=== PATIENT | female | born 1965 | race Caucasian/White ===

== ENCOUNTER 2019-06-20 13:16 | Inpatient (IN) | payer BC ==
--- NOTE | 2019-06-20 14:13 | ED ---
Lower Extremity - HPI Summary HPI Summary: This patient is a 53 year old F presenting to [facility] accompanied by with a chief complaint of ulcer on the 3rd toe of the right foot since more than 1 month ago. Symptoms aggravated by nothing. Symptoms alleviated by nothing. Patient reports she has neuropathy in both legs that start in her feet, go up her legs (felt more in one leg than the other), and partially up her back and she has hammer toes in both feet. Patient reports her 2nd toe got infected after a blister opened up and now her 3rd toe on the same foot has the ulcer that started as a scab a month ago. 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 Patient reports her left ankle hurts more than her right ankle. Patient has never gotten a scan of her legs done. Patient is on Eliquis. Denies hx blood clots. Hx Afib. - History of Current Complaint Chief Complaint: EDExtremityLower Stated Complaint: INFECTED TOES ON RIGHT FOOT PER PT Time Seen by Provider: 06/20/19 13:30 Hx Obtained From: Patient Onset of Pain: Days Onset/Duration: Still Present Pain Intensity: 0 Pain Scale Used: 0-10 Numeric Timing: Constant Aggravating Factor(s): Nothing Alleviating Factor(s): Nothing - Allergies/Home Medications Allergies/Adverse Reactions: Allergies Allergy/AdvReac Type Severity Reaction Status Date / Time No Known Allergies Allergy Verified 06/20/19 13:23 PMH/Surg Hx/FS Hx/Imm Hx Endocrine/Hematology History: Reports: Hx Anticoagulant Therapy Denies: Hx Diabetes Cardiovascular History: Reports: Hx Hypertension Denies: Hx Pacemaker/ICD Respiratory History: Denies: Hx Asthma Musculoskeletal History: Reports: Hx Back Problems Sensory History: Denies: Hx Hearing Aid Psychiatric History: Denies: Hx Panic Disorder - Cancer History Hx Chemotherapy: No Hx Radiation Therapy: No - Surgical History Surgery Procedure, Year, and Place: C-SECTIONS Infectious Disease History: No Infectious Disease History: Denies: Traveled Outside the [place] in Last 30 Days - Family History Known Family History: Positive: Cardiac Disease, Hypertension, Other - cancer- stomach, luncg, copd, emphysema, osteoporosis Negative: Diabetes - Social History Alcohol Use: Occasionally Hx Substance Use: No Substance Use Type: Reports: None Hx Tobacco Use: No Smoking Status (MU): Never Smoked Tobacco Review of Systems Positive: Other - neuropathy on legs and feet, hammer toes, ankle pain Positive: Other - ulcer on 3rd toe on right foot All Other Systems Reviewed And Are Negative: Yes Physical Exam - Summary Physical Exam Summary: Constitutional: Well-developed, Well-nourished, Alert. (-) Distressed Skin: Warm, Dry, ulcer to the distal right 3rd toe with surrounding erythema HENT: Normocephalic; Atraumatic Eyes: Conjunctiva normal Neck: Musculoskeletal ROM normal neck. (-) JVD, (-) Stridor, (-) Nuchal rigidity Cardio: Rhythm regular, rate normal, Heart sounds normal; Intact distal pulses; Radial pulses are 2+ and symmetric. (-) Murmur Pulmonary/Chest wall: Effort normal. (-) Respiratory distress, (-) Wheezes, (-) Rales Abd: Soft, (-) tenderness, (-) Distension, (-) Guarding, (-) Rebound Musculoskeletal: Diffused swelling to right foot and ankle and calf, bilateral femoral pulses, left 2+ DP & PT pulses, right 2+ PT and doppler signal DP pulses Lymph: (-) Cervical adenopathy Neuro: Alert, Oriented x3 Psych: Mood and affect Normal Triage Information Reviewed: Yes Vital Signs On Initial Exam: Initial Vitals Temp Pulse Resp BP Pulse Ox 99.6 F 102 16 141/94 97 06/20/19 13:19 06/20/19 13:19 06/20/19 13:19 06/20/19 13:19 06/20/19 13:19 Vital Signs Reviewed: Yes Diagnostics - Vital Signs Vital Signs Temp Pulse Resp BP Pulse Ox 06/20/19 13:19 99.6 F 102 16 141/94 97 - Laboratory Result Diagrams: 06/20/19 14:04 06/20/19 14:10 Lab Statement: Any lab studies that have been ordered have been reviewed, and results considered in the medical decision making process. Re-Evaluation - Re-Evaluation First Eval Re-Evaluation Time: 14:18 Comment: updating pts on plan of care Second Eval Comment: XR shows possible osteomyelitis, US w dopplerable DP pulse Lower Extremity Course/Dx - Course Course Of Treatment: 53-year-old female with a history of neuropathy presents with ulcer to right third toe. - Exam with diffuse swelling of the foot ankle and also to the right third toe with spreading erythema. Concern for ostemomyelitis, check a x-ray. Also consider vascular insufficiency given decreased DP pulse of right foot - Diagnoses Provider Diagnoses: Osteomyelitis of foot, right, acute - Physician Notifications Discussed Care Of Patient With: Brianna Braden - accepts patient for admission at 3:04 Instructed by Provider To: Admit As Inpatient Discharge ED - Sign-Out/Discharge Documenting (check all that apply): Patient Departure Patient Received Moderate/Deep Sedation with Procedure: No - Discharge Plan Condition: Stable Disposition: ADMITTED TO [facility] Referrals: Reyna Limon MD [Primary Care Provider] - - Billing Disposition and Condition Condition: STABLE Disposition: Admitted to [facility] - Attestation Statements Document Initiated by Kevin: Yes Documenting Scribe: Sissy Pillai Provider For Whom Keivn is Documenting (Include Credential): Dr. Mai Jimenez MD Scribe Attestation: Sissy Conrad, scribed for Dr. Mai Jimenez MD on 06/20/19 at 1505. Scribe Documentation Reviewed: Yes Provider Attestation: The documentation as recorded by the Sissy pelaez accurately reflects the service I personally performed and the decisions made by me, Dr. Mai Jimenez MD Status of Scribe Document: Viewed
[2019-06-20 14:16] LABS: ABS Basophils 0.1 10^3/ul (0-0.2); ABS Eosinophils 0.1 10^3/ul (0-0.6); ABS Lymphocytes 1.6 10^3/ul (1.0-4.8); ABS Monocytes 0.6 10^3/ul (0-0.8); ABS Neutrophils 6.9 10^3/ul (1.5-7.7); Eosinophil % 1.6 %; Hematocrit 44 % (35-47); Hemoglobin 15.4 g/dL (12.0-16.0); Lymphocyte % 17.1 %; Mean Corpuscular HGB Conc 35 g/dL (31-36); Mean Corpuscular Hemoglobin 32 pg (27-31); Mean Corpuscular Volume 91 fL (80-97); Mean Platelet Volume 8.4 fL (7.4-10.4); Platelet Count 198 10^3/uL (150-450); Red Blood Count 4.84 10^6 /uL (3.70-4.87); Red Cell Distribution Width 12 % (10-15); White Blood Count 9.3 10^3/uL (3.5-10.8)
[2019-06-20 14:33] LABS: Albumin 3.8 g/dL (3.2-5.2); Albumin/Globulin Ratio 1.5 (1-3); BUN/Creatinine Ratio 17.3 (8-20); C Reactive Protein 7.87 mg/L (<8.01); Calcium 9.4 mg/dL (8.6-10.3); EGFR African American 97.1 (>60); EGFR Non-African American 80.2 (>60); Globulin 2.5 g/dL (2-4); Total Bilirubin 0.3 mg/dL (0.2-1.0); Total Protein 6.3 g/dL (6.4-8.9)
[2019-06-20 15:54] LABS: Potassium 3.5 mmol/L (3.5-5.0)
[2019-06-20] MEDS ORDERED: traMADol TAB* 50 MG PO PRN (16:29)
[2019-06-20] MEDS ORDERED: Vancomycin(*) 1,000 MG in NS 0.9% 250 ML* 250 ML IVPB ONE (16:35)
[2019-06-20] MEDS ORDERED: Acetaminophen TAB* 325 MG PO PRN (16:39)
[2019-06-20] MEDS ORDERED: Vancomycin per Pharmacy* NOTE FOLLOW UP SCH (17:00)
[2019-06-20] MEDS: Cefepime 2 GM in Dextrose(*) 2 GM/50 ML BAG IV ONE ×2 (17:09→17:13)
--- NOTE | 2019-06-20 20:47 | HP ---
CC: Dr. Limon; Dr. Hutchinson; Dr. Rees * HISTORY AND PHYSICAL: DATE OF ADMISSION: 06/20/19 TIME OF EVALUATION: 3:50 p.m. PRIMARY CARE PROVIDER: Dr. Limon. CONSULTING NEUROLOGIST: Dr. Hutchinson. CONSULTING INFECTIOUS DISEASE SPECIALIST: Dr. Rees. CHIEF COMPLAINT: "My toe is swollen." HISTORY OF PRESENT ILLNESS: Ms. Dinh is a 53-year-old female with a past medical history of atrial fibrillation, mild mitral regurgitation, who presents to the emergency room with complaints of edema and erythema to her right third toe. She has had issues with low back pain and lower extremity numbness since early summer. The patient states that she had an MRI of the lumbar spine. The patient saw Dr. Kidd as outpatient for an injection and she is still waiting for insurance authorization. With the complaints of lower extremity numbness, she was referred to see Dr. Argueta as outpatient as there was concern for peripheral neuropathy. She had an EMG done as an outpatient and although the official report is not available to me at this time, the patient states she was diagnosed with peripheral neuropathy, but etiology was unclear. Multiple blood tests were done, but she does not know the result. She states that she saw her marzipan maker earlier in May. At that time, she had blister to her second toe on the right and she states Dr. West got some sampling from that blister and sent for cultures. She was prescribed Augmentin. As per Dr. West's note, the patient had an abscess on the medial aspect of the second right toe and he performed an I and D of the area and prescribed Augmentin for 10 days. She was also prescribed topical Silvadene and also educated her about other measures about her hammertoes. The patient states that with antibiotics, her second toe improved, but over the past week, she started to notice issues with the third toe that now became erythematous and swollen. She states that she had an ulcer with a scab on the head of the toe that had been removed by Dr. West a month ago, but the redness and swelling started this past week, reason why she came to the emergency room for further evaluation. She denies fever, chills, nausea, vomiting, diarrhea, chest pain, palpitations, shortness of breath. She states while in the emergency room, she started to have some left shoulder pain that she was not feeling before. She rates the pain as 4/10, no radiation , no alleviating or provoking factors. PAST MEDICAL HISTORY: 1. Atrial fibrillation. As per Dr. Limon's note, the patient has been in sinus rhythm for the past 2 years and she was referred to Cardiology for further evaluation. 2. Mild mitral regurgitation 3. Status post tubal ligation. 4. Status post appendectomy. 5. Status post . MEDICATION LIST: 1. Apixaban 5 mg p.o. b.i.d. 2. Chlorthalidone 25 mg p.o. daily. 3. Digoxin 0.25 mg p.o. daily. 4. Cardizem CD 180 mg p.o. daily. 5. Magnesium oxide 250 mg p.o. daily. 6. Potassium chloride 10 mEq p.o. b.i.d. 7. Tramadol 50 mg p.o. q.6 hours p.r.n. pain. 8. Vitamin D 5000 units p.o. daily. ALLERGIES: No known drug allergies. FAMILY HISTORY: The patient states that her father had history of coronary artery disease, had multiple heart attacks. SOCIAL HISTORY: She works at [employer]. No history of tobacco or drug use. She occasionally drinks alcohol. Surrogate decision maker is her , Catalino Dinh, phone number is [phone]. REVIEW OF SYSTEMS: A 14-point review of systems was performed, and all the pertinent negatives and positive findings are in the HPI. PHYSICAL EXAMINATION GENERAL: The patient is a middle-aged lady, lying in the ED stretcher, in no acute distress. VITAL SIGNS: Temperature 98.9, heart rate is 75, respiratory rate is 16, oxygen saturation 98% on room air, blood pressure is 149/76. HEENT: Pupils are equal. Moist mucous membranes. CHEST: Breath sounds bilaterally with no added sounds. CVS: Normal S1, S2. Regular rate and rhythm with systolic murmur. ABDOMEN: Soft. Bowel sounds present. EXTREMITIES: The patient has edema and erythema of the third right toe with no drainage, but with a small ulcer on the head of that toe. There is mild erythema and some scant desquamation on the second toe on the same side. She has palpable pulses bilaterally, but the right is harder to feel than the left. Good capillary refill. NEURO: She is alert and oriented x3. Able to move all 4 extremities. She has decreased sensation on both lower extremities especially on her feet, but standing all the way up to the groin area. DIAGNOSTIC STUDIES/LAB DATA: The patient had a CBC that showed a WBC of 9.3, hemoglobin of 15.4, hematocrit of 44, platelets of 198 with 74% neutrophils. Chemistry showed a sodium of 140, potassium 3.5, chloride of 102, bicarb of 33, BUN of 13, creatinine of 0.75, glucose of 85, calcium of 9.4. LFTs were normal except for an alk phos of 108. Troponin was 0. CRP was 7.8. As outpatient, as part of the workup for her peripheral neuropathy, the patient had TSH 1.4, vitamin B12 505, whole blood vitamin B1 122, serum electrophoresis with no apparent monoclonal protein. Anti-CCP, MARÍA, anti-SSA, SSB were all negative and lead level was 1.2. MRI of the lumbar spine without contrast done on 05/09/19 showed varying degrees of multilevel spondylosis that results in up to moderate right neural foraminal stenosis at L5-S1. There is mild spinal canal stenosis at L4-L5 with narrowing of the lateral recesses. Left eccentric Modic type 1 degenerative endplate changes at L3-L4 are potential source of focal back pain. A central annular fissure at L5-S1 is a potential source of focal back pain. EKG done on 06/20/19 at 4:21 p.m. showed no acute ischemic changes. ASSESSMENT AND PLAN: Ms. Dinh is a 53-year-old female with a past medical history of atrial fibrillation, on anticoagulation, being worked up for peripheral neuropathy as outpatient who presents to the emergency room with complaints of third toe edema and erythema, found to have probable osteomyelitis. 1. Osteomyelitis. In the setting of hammertoes and peripheral neuropathy. Cultures from her second toe done in May grew methicillin-sensitive Staphylococcus aureus. She did have some improvement with Augmentin as outpatient, but the third toe now is symptomatic and the x-ray showed findings suspicious for osteomyelitis in the distal phalanx of the third toe. She will be admitted to the medical floor and I am going to start her empirically on vancomycin and cefepime. Consultation was requested with Dr. Rees and his initial recommendation was for vancomycin, ceftriaxone and Flagyl, but I am concerned with Flagyl use on a patient with significant peripheral neuropathy. So, I will wait for neurology evaluation and depending on the recommendation, we can change her antibiotics from cefepime to ceftriaxone and metronidazole. Blood and wound cultures were ordered as well as right foot MRI to better delineate her osteomyelitis. 2. Peripheral neuropathy. I contacted Dr. 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 She will provide a full report tomorrow. I requested neurology consultation with Dr. Hutchinson and I will continue her workup, requesting hepatitis B and C serologies and we wait for Dr. Hutchinson's recommendation regarding a further workup needed. It is interesting that the patient does not have complaints of her upper extremity, so Dr. Hutchinson is concerned that she may have cervical spine pathology, but he will see her first and then make recommendations including the need for cervical spine MRI. 3. Atrial fibrillation. We will continue digoxin, Cardizem and apixaban. 4. Shoulder pain. 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 Her EKG shows no acute ischemic changes. She will have serial troponin, but my suspicions for cardiac etiology are low. 5. DVT prophylaxis. The patient has a score of 2 on the DVT Prophylaxis Risk Assessment Guide and she will be continued on apixaban. 4. Code status is full. TIME SPENT: Approximately 60 minutes was spent with patient and her interview, medical records review, physical examination to complete this admission; more than half of this time was spent [id number] with the patient and coordination of care. [id number]/[facility] #: [id number] EVELINA
[2019-06-20] MEDS: Apixaban* 5 MG TAB PO SCH (22:33)
[2019-06-20] MEDS: Potassium Chlor TAB* 10 MEQ TAB.ER PO SCH (22:33)
[2019-06-21] MEDS: Vancomycin(*) 1,000 MG in NS 0.9% 250 ML* 250 ML IVPB SCH ×3 (02:45→18:30)
[2019-06-21] MEDS: Cefepime 2 GM in Dextrose(*) 2 GM/50 ML BAG IV SCH ×2 (05:58→17:24)
[2019-06-21 07:25] LABS: Hepatitis B Surface Antigen Negative (Negative)
[2019-06-21 07:42] LABS: Hepatitis C Antibody Negative (Negative)
[2019-06-21] MEDS: Digoxin TAB* 0.25 MG PO SCH (09:43)
[2019-06-21] MEDS: Magnesium Oxide TAB* 400 MG PO SCH (09:43)
[2019-06-21] MEDS: Potassium Chlor TAB* 10 MEQ TAB.ER PO SCH ×2 (09:43→21:09)
[2019-06-21] MEDS: Apixaban* 5 MG TAB PO SCH ×2 (09:43→21:09)
[2019-06-21] MEDS: Cholecalciferol TAB* 1000 UNITS PO SCH (09:44)
[2019-06-21] MEDS: Diltiazem CD CAP* 180 MG PO SCH (09:44)
[2019-06-21] MEDS: Chlorthalidone TAB* 50 MG PO SCH (09:44)
--- NOTE | 2019-06-21 14:39 | PN ---
Subjective Date of Service: 06/21/19 Interval History: Ms. Dinh reports that she is feeling well. She denies complaint including chest pain, SOB, nausea,or abdominal pain. She confirms having ongoing trouble with ulcer/infection/blister to, first her right second toe and then her right third toe, managed by senior water resources engineer. She was not aware of her neuropathy until she developed this problem with her feet and began seeing a senior water resources engineer. Objective Active Medications: Acetaminophen (Tylenol Tab*) 650 mg PO Q6H PRN Apixaban (Eliquis*) 5 mg PO BID IFEOMA Chlorthalidone (Hygroton Tab*) 25 mg PO DAILY IFEOMA Cholecalciferol (Vitamin D Tab*) 5,000 units PO DAILY IFEOMA Digoxin (Lanoxin Tab*) 0.25 mg PO DAILY IFEOMA Diltiazem HCl (Cardizem Cd Cap*) 180 mg PO DAILY IFEOMA Cefepime HCl (Maxipime 2 Gm In Dextrose Duplex (*)) 2 gm in 50 mls @ 100 mls/ hr IV Q12H IFEOMA Vancomycin HCl 1,000 mg/ (Sodium Chloride) 250 mls @ 166.667 mls/hr IVPB Q8H IFEOMA Magnesium Oxide (Magox 400 Tab*) 400 mg PO DAILY IFEOMA Pharmacy Consult (Vancomycin Per Pharmacy*) 1 note FOLLOW UP .VANC PER PHARMACY IFEOMA; Protocol Pharmacy Profile Note (Vancomycin Trough Check) 1 note FOLLOW UP 1730 ONE Potassium Chloride (Klor Con Er Tab*) 10 meq PO BID IFEOMA Tramadol HCl (Ultram*) 50 mg PO Q6HR PRN Vital Signs: Temp Pulse Resp BP Pulse Ox 98.4 F 81 14 144/79 98 06/21/19 11:29 06/21/19 11:29 06/21/19 11:29 06/21/19 11:29 06/21/19 11:29 Oxygen Devices in Use Now: None Appearance: Female lying in bed in NAD Eyes: No Scleral Icterus Ears/Nose/Mouth/Throat: Mucous Membranes Moist Neck: Trachea Midline Respiratory: Symmetrical Chest Expansion and Respiratory Effort, Clear to Auscultation Cardiovascular: NL Sounds; No Murmurs; No JVD, No Edema Abdominal: NL Sounds; No Tenderness; No Distention Skin: - - Dry ulceration to right third toe, no drainage Neurological: Alert and Oriented x 3, NL Muscle Strength and Tone Nutrition: Taking PO's Result Diagrams: 06/20/19 14:04 06/20/19 14:10 Assess/Plan/Problems-Billing Assessment: Ms. Dinh is a 53 yo F with a PMH of afib, HTN who was admitted on 06/20/19 with osteomyelitis to the right third toe secondary to newly diagnosed neuropathy of unknown etiology. - Patient Problems (1) Osteomyelitis Comment: - To right third toe in setting of hammertoes and peripheral neuropathy with xray concerning for osteomyelitis - Continue empiric treatment with vanco and cefepime, hx of MSSA infection in right second toe - Foot MRI pending - ID consult pending (2) Peripheral neuropathy Comment: - Per verbal report from Dr Argueta patient's EMG showed sensorimotor axonal peripheral neuropathy with L5 and/or S1 neuropathy - ? immune mediated neuropathy, hepatitis panel negative. Neurology consult appreciated, recommends brain and cervical MRI, lyme panel. (3) Afib Comment: - Rate controlled - Continue digoxin, diltiazem and apixaban (4) Hypertension Comment: - SBP 120-140s - Continue chlorthalidone, diltiazem (5) Shoulder pain Comment: - Not anginal equivalent as trops and EKG negative - Suspect musculoskeletal (6) DVT prophylaxis Comment: - Apixiban (7) Full code status Comment: Status and Disposition: Inpatient. Anticipate discharge to home when medically stable.
--- NOTE | 2019-06-21 15:48 | CONS ---
CONSULTATION REPORT: DATE OF CONSULT: 06/21/19 PATIENT OF: Dr. Limon; Dr. Rees; Doris Obando, AYE; and Dr. Argueta. HISTORY OF PRESENT ILLNESS: This is a 53-year-old woman who was admitted for right toe cellulitis, who I am asked to evaluate for her numbness. Since January and February, she has developed numbness beginning in her both feet and the toes and slowly spreading up to mid to upper thigh and both legs. There is no change in bowel or bladder. There are no balance problems. There is no weakness other than she says her arms feel weak and it is harder to lift things. She has had no significant numbness in the hands. She notes that on occasion there is a little bit of numbness in the fingers on both sides, but this is intermittent and not persistent. She has had some low back pain and she has had neck pain going into the left shoulder. This has been in the past month. She had an EMG nerve conduction study done in February. The patient believes it is not part of her chart now, but apparently it showed neuropathy and has had an evaluation through Dr. Argueta. 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 PAST MEDICAL HISTORY: She has a history of atrial fibrillation, mild mitral regurgitation. PAST SURGICAL HISTORY: Status post tubal ligation, status post appendectomy, status post . MEDICATIONS: Include: 1. Apixaban 5 mg b.i.d. 2. Chlorthalidone 25 mg daily. 3. Digoxin 0.25 daily. 4. Cardizem CD 180 p.o. daily. 5. Mag oxide 250 daily. 6. Potassium chloride 10 mEq b.i.d. 7. Tramadol 50 q.6 hours p.r.n. pain. 8. Vitamin D 5000 units a day. ALLERGIES: She has no allergies. FAMILY HISTORY: The father had coronary artery disease and multiple heart attacks. No history of neuropathy. SOCIAL HISTORY: She works at [employer]. There is no tobacco or drug use. She occasionally drinks alcohol. She lives with her . REVIEW OF SYSTEMS: Negative in all 14 spheres other than the HPI. PHYSICAL EXAM: Temperature 98.4, pulse 81, respirations 14, blood pressure 144/ 79. She is alert and oriented with normal speech and comprehension. Cranial nerves II through XII were intact. Fundi were benign. Motor exam revealed normal tone and strength other than trace weakness in finger abduction in both hands, trap operator and arm strength was otherwise good as was legs. Reflexes were 1+ in the arms, 3 at the knees with slight crossed adductor bilaterally, 2 at the ankles. Toes were equivocal to downgoing. She had decreased sensation to touch and temperature to mid thigh, decreased position sense in both feet. Sensation intact in the arms. Gait was normal. Romberg was negative. Chest: Clear. Cardiovascular: Regular rate and rhythm. Abdomen is soft with positive bowel sounds. She has infected toe as described earlier. DIAGNOSTIC STUDIES/LAB DATA: Her labs include normal CBC, normal chemistries. C- reactive protein 787. Serologies: Hepatitis B and C were negative. Her outside lab tests have included normal MARÍA, Sjogren's studies, thyroid, B12, B1 , serum protein electrophoresis. MRI scan done in the beginning of May showed moderate right foraminal stenosis at L5-S1 with mild canal stenosis at L4-5. IMPRESSION AND PLAN: I discussed with Vicky and also Dr. Guerin yesterday that her pattern of numbness which is primarily in her legs going to at least mid thigh if not higher in the absence of any significant numbness in the hands raises the possibility that this could be coming from her cervical spine rather than a peripheral neuropathy. If the EMG really showed slowing, peripheral neuropathy is more likely, but the distribution of the numbness and present reflexes, especially reflexes that are slightly on the brisk side in the legs raised the possibility of a more central process. I would get an MRI scan of her C-spine to make sure that there is no cervical disk and get an MRI scan of her brain to screen for demyelinating processes. I think that these are less likely than neuropathy given the abnormal nerve conduction study, but I think we need to double check. We will need to get the actual EMG nerve conduction study tomorrow and then Dr. Diaz will be on service, evaluate that and decide whether that needs to be repeated or whether anything further needs to be done. I am also recommending sending off Lyme titers. Thank you for sharing her case. [id number]/[facility] #: [id number] EVELINA
[2019-06-21] MEDS ORDERED: Vancomycin Trough Check NOTE FOLLOW UP ONE (17:30)
[2019-06-22] MEDS: Vancomycin(*) 1,000 MG in NS 0.9% 250 ML* 250 ML IVPB SCH (02:16)
[2019-06-22] MEDS: Cefepime 2 GM in Dextrose(*) 2 GM/50 ML BAG IV SCH (05:45)
[2019-06-22] MEDS: Chlorthalidone TAB* 50 MG PO SCH (09:19)
[2019-06-22] MEDS: Cholecalciferol TAB* 1000 UNITS PO SCH (09:19)
[2019-06-22] MEDS: Potassium Chlor TAB* 10 MEQ TAB.ER PO SCH ×2 (09:19→22:36)
[2019-06-22] MEDS: Magnesium Oxide TAB* 400 MG PO SCH (09:20)
[2019-06-22] MEDS: Digoxin TAB* 0.25 MG PO SCH (09:20)
[2019-06-22] MEDS: Apixaban* 5 MG TAB PO SCH ×2 (09:20→22:36)
[2019-06-22] MEDS: Diltiazem CD CAP* 180 MG PO SCH (09:20)
--- NOTE | 2019-06-22 11:27 | CONS ---
CONSULTATION REPORT: DATE OF CONSULTATION: 06/22/19 REQUESTING PHYSICIAN: Dr. Guerin. CONSULTING SERVICE: Infectious Disease. REASON FOR CONSULTATION: Foot infection. IMPRESSION: 1. Right third toe diffuse edema, erythema and distal eschar with ulcer in the setting of hammer toe and neuropathy. Subtle changes on the distal third phalanx on x-ray suggesting chronic osteomyelitis. Wound cultures growing Staph aureus, PCR negative for MRSA. That is likely the main pathogen. 2. Neuropathy involving both feet. Workup for etiology is pending. 3. Atrial fibrillation. RECOMMENDATIONS: Cefazolin 2 g IV every 8 hours and then by continuous infusion at home. I ordered a PICC line as well as weekly CBC, CMP, and CRP. She will follow up with me in 1 or 2 weeks. We discussed possible side effects of long-term antibiotics including C. Difficile infection, allergic reaction, PICC infection. She will call with fever, rash or diarrhea. HISTORY OF PRESENT ILLNESS: This is a 53-year-old woman with a neuropathy, had an outpatient workup, no cause found. She is seen by Neurology here and the question of a central process including cervical canal stenosis was raised. She came to the hospital though because of redness and swelling in the right third toe. She did follow up with Dr. West as an outpatient for a second toe infection that resolved with Augmentin and soon thereafter she developed redness, swelling and callus in the second toe that she had noticed for a week or two. She did not recall any injury or had not seen much bleeding or purulent drainage anywhere. She had otherwise felt well. She had an x-ray with the results as described above. She has had no fevers here. She was started on vancomycin, cefepime and Flagyl. I discussed the case with Dr. Guerin before the visit. PAST MEDICAL HISTORY: 1. Atrial fibrillation. 2. Mitral regurgitation. 3. Status post tubal ligation. 4. Status post appendectomy. 5. Status post . MEDICATIONS: 1. Tylenol. 2. Apixaban. 3 Cefepime 2 g every 12 hours. 4. Chlorthalidone. 5. Cholecalciferol. 6. Digoxin. 7. Diltiazem. 8. Magnesium oxide. 9. Potassium chloride. 10. Tramadol as needed. 11. Vancomycin 1 g IV every 8 hours. ALLERGIES: No known drug allergies. SOCIAL HISTORY: She lives in [place]. She works at [employer]. She is a nonsmoker, drinks occasional alcohol. REVIEW OF SYSTEMS: All negative except as noted above to a 14-point review of systems. PHYSICAL EXAM: Vital Signs: Temperature 36.6, heart rate 70, respiratory rate 18, blood pressure 130/60, oxygen saturation 98% on room air. In general, she is awake, not in distress. Neurologically, she is oriented x3, follows her commands, has decreased sensation in both feet. HEENT: There is no conjunctival hemorrhage. Oropharynx without lesions. Neck is supple without mass. Heart is regular rate and rhythm without murmurs, rubs, or gallops. Lungs are clear to auscultation bilaterally. Abdomen: Soft, nontender, nondistended. There are bowel sounds present. Skin: There is no rash or splinter hemorrhage. Musculoskeletal: Right third toe with diffuse edema, erythema, and distal callus with slight underlying ulceration in the middle. No expressible fluid. There is 1+ dorsalis pedis pulse on the right. LAB DATA: White blood cell count 9, hemoglobin 15, platelets 198,000. Creatinine is 0.7, CRP 8. Please see impressions and recommendations outlined above. Thank you for asking me to see Ms. Dinh in consultation. [id number]/[facility] #: [id number] EVELINA
--- NOTE | 2019-06-22 11:38 | PN ---
Subjective Date of Service: 06/22/19 Length of Stay: 2 Days Neurology is following for the evaluation of neuropathy. Interval History: Vicky Dinh is a 53-year-old right-handed female who is employed at [employer] presented to [facility] with an infected right toe. Neurology is involved to assess for neuropathy. The patient reports a 2-3 year history of progressive tingling and burning sensation involving her feet. She has had numbness in the feet for the past five months, now slowly involving her distal hands. She is not diabetic or a vegan. Lately, she has noticed sharp pain shooting from the neck area radiating to the left shoulder region. The pain is mild and started few weeks ago. She denied any weakness. She denied any impairment in her bowel or bladder functions. She has no fevers. She has been exposed to tick bites in the past, approximately 2 years ago, but was treated with Doxycycline. She never had a rash. Her oldest son suffers from flat feet. Her father has a stroke and is wheel chair bound. There is no reported history of hammer toes or severe neuropathy in the family. She denied any heavy metal exposure. She presented to the ED because her toe was not getting any better and she was developing a lot of pain. She has had significant weight loss over the past few months after cutting off all the soda intake. Of note, the patient was seen by Dr. Quiñonez from Podiatry in May who diagnosed her with hammer toes and flat feet. She was sent to Dr. Argueta for a NCS/EMG that was done on 04/30/2019. I reviewed the results that reported the following: "abnormal study due to sensorimotor axonal peripheral neuropathy and Left L5-S1 radiculopathies with possible L4 involvement." She had an MRI lumbar spine on 05/09/2019. I reviewed the image. There is evidence of moderate right neural foraminal stenosis at L5-S1. There is central annular fissure at L5-S1 and left eccentric modic type 1 degenerative endplate, which in combination can explain the patient's low back pain. Today, the patient stated that her toe pain is getting better. She is in no distress regarding the numbness in her feet. She would like to find out the cause of her paresthesia. She denied any swallowing difficulty, slurred speech , headache, or visual disturbance. Review of Systems: Denied CP, SOB, or palpitations. Objective Active Medications: Acetaminophen (Tylenol Tab*) 650 mg PO Q6H PRN PRN Reason: MILD PAIN or TEMP > 100.4 Last Admin: 06/20/19 17:01 Dose: 650 mg Apixaban (Eliquis*) 5 mg PO BID [facility] Last Admin: 06/22/19 09:20 Dose: 5 mg Chlorthalidone (Hygroton Tab*) 25 mg PO DAILY [facility] Last Admin: 06/22/19 09:19 Dose: 25 mg Cholecalciferol (Vitamin D Tab*) 5,000 units PO DAILY [facility] Last Admin: 06/22/19 09:19 Dose: 5,000 units Digoxin (Lanoxin Tab*) 0.25 mg PO DAILY [facility] Last Admin: 06/22/19 09:20 Dose: 0.25 mg Diltiazem HCl (Cardizem Cd Cap*) 180 mg PO DAILY [facility] Last Admin: 06/22/19 09:20 Dose: 180 mg Cefazolin Sodium/Dextrose (Kefzol 2 Gm Premix In Ors(*)) 2 gm in 50 mls @ 100 mls/hr IVPB Q8H [facility] Magnesium Oxide (Magox 400 Tab*) 400 mg PO DAILY [facility] Last Admin: 06/22/19 09:20 Dose: 400 mg Pharmacy Consult (Vancomycin Per Pharmacy*) 1 note FOLLOW UP .VANC PER PHARMACY [facility]; Protocol Pharmacy Profile Note (Vancomycin Trough Check) 1 note FOLLOW UP 929 ONE Stop: 06/23/19 09:31 Potassium Chloride (Klor Con Er Tab*) 10 meq PO BID [facility] Last Admin: 06/22/19 09:19 Dose: 10 meq Tramadol HCl (Ultram*) 50 mg PO Q6HR PRN PRN Reason: PAIN - MILD Vital Signs 06/21/19 06/21/19 06/21/19 15:02 19:15 20:00 Temperature 98.4 F 98.2 F Pulse Rate 65 65 Respiratory 18 16 16 Rate Blood Pressure 129/69 98/48 (mmHg) O2 Sat by Pulse 98 99 Oximetry 06/21/19 06/22/19 06/22/19 22:32 03:15 07:26 Temperature 98.5 F 97.9 F 97.9 F Pulse Rate 68 57 70 Respiratory 18 20 18 Rate Blood Pressure 122/68 107/51 130/61 (mmHg) O2 Sat by Pulse 99 98 98 Oximetry 06/22/19 06/22/19 09:30 10:58 Temperature 98.1 F Pulse Rate 74 Respiratory 18 18 Rate Blood Pressure 125/69 (mmHg) O2 Sat by Pulse 98 Oximetry Intake and Output Last 24 Hours 06/20/19 06/21/19 06/22/19 06/23/19 06:59 06:59 06:59 06:59 Intake Total 900 3041 Output Total 0 Balance 900 3041 Weight 149 lb 9.6 oz Intake: IV Fluids 60 315 ABX - VANCOMYCIN 265 NS (0.9%) 60 50 IVPB 540 646 ABX - VANCOMYCIN 540 581 NS (0.9%) 65 Oral 300 2080 Output: Urine 0 Other: # Bowel Movements 0 1 # Voids 0 0 Oxygen Devices in Use Now: None Neurology Exam: General: Well nourished, well developed, and in no acute distress HEENT: Normocephelic/atraumatic, sclera anicteric, mucous membranes moist Neck: Supple Chest: Clear to auscultation bilaterally Cardiovascular: Regular rate and rhythm without murmurs, rubs, gallops Extremities: No clubbing, cyanosis, or edema. Dry ulceration of the distal, lateral,right second and great toes. Neurological Findings: Awake, alert, and oriented to person, place, and time. Speech: fluent without dysarthria, repetition intact Cranial Nerve: PERRL, EOM intact, VFF, no nystagmus, face symmetric bilaterally , facial sensation intact, hearing intact to finger rub bilaterally, palate elevates symmetrically, tongue midline, SCM and Trapezius s/s. Motor: s/s throughout, proximal and distal extremities x4 tone/bulk normal, except for 4/5 EHL bilaterally Sensation: Distal to proximal sensory gradient to pinprick demarcated slightly above the knee bilaterally. Vibration 5 seconds on the right and 4 seconds on the left great toes. Normal proprioception at the toes bilaterally. Sensory gradient to pinprick at the upper-mid thoracic region. Deep Tendon Reflex: 1+ at the right bicep, 2+ in the triceps, 2+ brachioradialis , 2+ at the left bicep, 2+ at the knees, trace at the right ankle, 2+ at the left ankle. Positive crossed adductor signs right more than left. Finger to nose, rapid alternating movements intact without tremor, no dysdiadochokinesia Gait: intact with good arm swing and stride. She had trouble walking on her toes. Result Diagrams: 06/20/19 14:04 06/20/19 14:10 Additional Lab and Data: Labs from the past 2-3 months: TSH 1.4 ESR: 11 CRP: 7.8 B12: 505 B6: 3 B1: 122 SSA/SSB: negative MARÍA: negative Hep C: negative Microbiology and Other Data: Microbiology 06/20/19 18:22 Skin and Soft Tissue MRSA/MSSA (PCR - Final Toe - Right Mrsa Negative S.aureus Positive Gram Stain - Final Wound Culture - Final Staphylococcus Aureus Normal Denice 06/20/19 22:29 Aerobic Blood Culture - Preliminary Blood Venous No Growth Day 1 Anaerobic Blood Culture - Preliminary No Growth Day 1 06/20/19 19:22 Aerobic Blood Culture - Preliminary Blood Venous No Growth Day 1 Anaerobic Blood Culture - Preliminary No Growth Day 1 Assessment/Plan Mrs. Dinh is a 53-year-old right-handed non-diabetic female who has a 2-3 year history of positive paresthesia manifesting as tingling and burning sensation, and now has a 4-5 month history (since January 2019) of numbness in the distal lower extremity. On examination, the patient has evidence of ascending distal to proximal sensory gradient to pinprick, asymmetric reflexes at the ankles, and hyperreflexia at the knees suggestive of myelopathy. She had an EMG/NCS of the lower extremity in April 2019 that showed a large fiber neuropathy and left Lower lumbosacral radiculopathy. An MRI of the L spine was done in May. The MRI L spine findings do not correlate with the patient's examination. Overall, the patient has evidence of a neuropathy and mild myelopathy presentation that is not consistent with an isolated lumbosacral disease or neuropathy. We need to evaluate for central causes such as demyelinating or spondylytic disease of the cervical and/or thoracic spine. I don't think this is a cortical or subcortical problem given the lack of bulbar symptoms. If neuroaxis imaging is negative, she may need an LP to assess for any inflammatory causes of myeloneuropathy (e.g., Lyme). EMG/NCS can also be repeated to compare to the recent test. I would hold off on repeating an electrodiagnostic study for now until the MRI findings. A/p: 1. Asymmetric reflexes: the trace ankle reflex is explained by the L5-S1 radiculopathy on the right. 2. 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 Ruled out any reversible causes of neuropathy except for we need to assess for Lyme and check for hematologic causes. Ordered Lyme and SPEP 3. Questionable myelopathy and a thoracic sensory level- rule out cervical or thoracic demyelinating or spondylosis. I will continue to follow. Time spent: 40 minutes
[2019-06-22] MEDS: ceFAZolin 2 GM PREMIX in ORs 2 GM/50 ML BAG IVPB SCH ×2 (11:51→22:35)
--- NOTE | 2019-06-22 16:38 | PN ---
Subjective Date of Service: 06/22/19 Interval History: Ms. Dinh feels that R 2nd, 3rd digits are improving in appearance. She c/o numbness, tingling, lack of sensation in b/l LE, particularly the toes, for months. She denies pain in the area. She denies weakness. She c/o pain, warmth in the L arm proximal to IV site. She is feeling well, and denies fevers /chills. No other complaints today. Objective Active Medications: Acetaminophen (Tylenol Tab*) 650 mg PO Q6H PRN Apixaban (Eliquis*) 5 mg PO BID [facility] Chlorthalidone (Hygroton Tab*) 25 mg PO DAILY [facility] Cholecalciferol (Vitamin D Tab*) 5,000 units PO DAILY [facility] Digoxin (Lanoxin Tab*) 0.25 mg PO DAILY [facility] Diltiazem HCl (Cardizem Cd Cap*) 180 mg PO DAILY [facility] Heparin Sodium (Porcine) (Heparin Flush Picc/Ml/Cvc(*)) 1 - 3 ml FLUSH 0600, 1800 [facility]; Protocol Cefazolin Sodium/Dextrose (Kefzol 2 Gm Premix In Ors(*)) 2 gm in 50 mls @ 100 mls/hr IVPB Q8H [facility] Magnesium Oxide (Magox 400 Tab*) 400 mg PO DAILY [facility] Potassium Chloride (Klor Con Er Tab*) 10 meq PO BID [facility] Tramadol HCl (Ultram*) 50 mg PO Q6HR PRN Vital Signs: Temp Pulse Resp BP Pulse Ox 97.7 F 67 18 129/67 100 06/22/19 15:34 06/22/19 15:34 06/22/19 15:34 06/22/19 15:34 06/22/19 15:34 Oxygen Devices in Use Now: None Appearance: Pt is sitting up in bed with HOB elevated. Eyes: No Scleral Icterus, PERRLA Ears/Nose/Mouth/Throat: NL Teeth, Lips, Gums, Clear Oropharnyx, Mucous Membranes Moist Neck: NL Appearance and Movements; NL JVP, Trachea Midline Respiratory: Symmetrical Chest Expansion and Respiratory Effort, Clear to Auscultation Cardiovascular: RRR, No Edema Abdominal: NL Sounds; No Tenderness; No Distention, No Hepatosplenomegaly Extremities: No Edema, No Clubbing, Cyanosis, - - R 2nd digit with medial wound with very small area of ulceration. R 3rd digit with dorsal erythema; plantar surface has callused area that is intact, without drainage. Neurological: Alert and Oriented x 3, - - Decreased senation to b/l LE to thigh ; decreased sensation to b/l UE forarms, hands. Result Diagrams: 06/20/19 14:04 06/23/19 05:40 Additional Lab and Data: Labs from the past 2-3 months: TSH 1.4 ESR: 11 CRP: 7.8 B12: 505 B6: 3 B1: 122 SSA/SSB: negative MARÍA: negative Hep C: negative Microbiology and Other Data: Microbiology 06/20/19 18:22 Skin and Soft Tissue MRSA/MSSA (PCR - Final Toe - Right Mrsa Negative S.aureus Positive Gram Stain - Final Wound Culture - Final Staphylococcus Aureus Normal Denice 06/20/19 22:29 Aerobic Blood Culture - Preliminary Blood Venous No Growth Day 1 Anaerobic Blood Culture - Preliminary No Growth Day 1 06/20/19 19:22 Aerobic Blood Culture - Preliminary Blood Venous No Growth Day 1 Anaerobic Blood Culture - Preliminary No Growth Day 1 Assess/Plan/Problems-Billing Assessment: Ms. Dinh is a 53 yo F with a PMH of afib, HTN who was admitted on 06/20/19 with osteomyelitis to the right third toe secondary to newly diagnosed neuropathy of unknown etiology. - Patient Problems (1) Osteomyelitis Comment: - To right third toe in setting of hammertoes and peripheral neuropathy with xray concerning for osteomyelitis - Wound culture: S. aureus, susceptible to Ancef - ID consulted and recommends PICC, continued Ancef - Will follow with ID outpatient in 1-2 weeks (2) Peripheral neuropathy Comment: - Per verbal report from Dr Argueta patient's EMG showed sensorimotor axonal peripheral neuropathy with L5 and/or S1 neuropathy - ? immune mediated neuropathy, hepatitis panel negative - Neurology consult appreciated, recommends brain, cervical, thoracic MRI, lyme panel (3) Shoulder pain Comment: - Not anginal equivalent as trops and EKG negative - Suspect musculoskeletal - MRI c-spine ordered (4) Hypertension Comment: - SBP 120-130s - Continue chlorthalidone, diltiazem (5) Afib Comment: - Rate controlled - Continue digoxin, diltiazem and apixaban (6) DVT prophylaxis Comment: - Apixiban (7) Full code status Comment: Status and Disposition: Inpatient. Anticipate discharge to home when medically stable.
[2019-06-23] MEDS: ceFAZolin 2 GM PREMIX in ORs 2 GM/50 ML BAG IVPB SCH ×3 (05:26→20:30)
[2019-06-23 06:15] LABS: EGFR African American 123.2 (>60); EGFR Non-African American 101.8 (>60)
[2019-06-23] MEDS: Chlorthalidone TAB* 50 MG PO SCH (09:29)
[2019-06-23] MEDS: Magnesium Oxide TAB* 400 MG PO SCH (09:29)
[2019-06-23] MEDS: Digoxin TAB* 0.25 MG PO SCH (09:29)
[2019-06-23] MEDS: Apixaban* 5 MG TAB PO SCH (09:29)
[2019-06-23] MEDS: Diltiazem CD CAP* 180 MG PO SCH (09:29)
[2019-06-23] MEDS: Cholecalciferol TAB* 1000 UNITS PO SCH (09:30)
[2019-06-23] MEDS: Potassium Chlor TAB* 10 MEQ TAB.ER PO SCH ×2 (09:30→20:30)
[2019-06-23] MEDS ORDERED: Vancomycin Trough Check NOTE FOLLOW UP ONE (09:30)
[2019-06-23] MEDS ORDERED: Lidocaine 1% INJ* 10 MG/ML 30 ML SDV INJ ONE (09:35)
--- NOTE | 2019-06-23 10:08 | PN ---
Progress Note - Progress Note Date of Service: 06/23/19 SOAP: Subjective: CC: Right 3rd toe osteomyelitis HPI: Ms. Dinh is a 53 yo female with PMH significant for peripheral neuropathy, and A fib; she presented to the hospital for right 3rd toe redness and swelling. Denies fever, chills, nausea, vomiting, or diarrhea. She states that the redness to her right 2nd and 3rd toes has improved. Objective: Vital Signs - 8 hr 06/23/19 06/23/19 03:15 09:29 Temperature 96.9 F Pulse Rate 74 98 Respiratory 16 Rate Blood Pressure 113/70 (mmHg) O2 Sat by Pulse 98 Oximetry Physical Exam: General: NAD, laying in bed Neurological: Alert and oriented x4 HEENT: Moist MM, no thrush Cardiovascular: Heart rate regular Respiratory: Lung sounds clear Abdominal: Bowel sounds present; ABD soft, non tender and non distended Skin: Mild dark erythema to the right 2nd and 3rd toes. There is a calloused area to the side of the right 2nd toe. There is also a calloused area to the distal aspect of the right 3rd toe. Laboratory Last Values WBC 9.3 10^3/uL (3.5-10.8) 06/20/19 14:04 RBC 4.84 10^6 /uL (3.70-4.87) 06/20/19 14:04 Hgb 15.4 g/dL (12.0-16.0) 06/20/19 14:04 Hct 44 % (35-47) 06/20/19 14:04 MCV 91 fL (80-97) 06/20/19 14:04 MCH 32 pg (27-31) H 06/20/19 14:04 MCHC 35 g/dL (31-36) 06/20/19 14:04 RDW 12 % (10-15) 06/20/19 14:04 Plt Count 198 10^3/uL (150-450) 06/20/19 14:04 MPV 8.4 fL (7.4-10.4) 06/20/19 14:04 Neut % (Auto) 74.3 % 06/20/19 14:04 Lymph % (Auto) 17.1 % 06/20/19 14:04 Dawson % (Auto) 6.4 % 06/20/19 14:04 Eos % (Auto) 1.6 % 06/20/19 14:04 Baso % (Auto) 0.6 % 06/20/19 14:04 Absolute Neuts (auto) 6.9 10^3/ul (1.5-7.7) 06/20/19 14:04 Absolute Lymphs (auto) 1.6 10^3/ul (1.0-4.8) 06/20/19 14:04 Absolute Monos (auto) 0.6 10^3/ul (0-0.8) 06/20/19 14:04 Absolute Eos (auto) 0.1 10^3/ul (0-0.6) 06/20/19 14:04 Absolute Basos (auto) 0.1 10^3/ul (0-0.2) 06/20/19 14:04 Absolute Nucleated RBC 0.0 10^3/ul 06/20/19 14:04 Nucleated RBC % 0.0 06/20/19 14:04 Sodium 140 mmol/L (135-145) 06/20/19 14:10 Potassium 3.5 mmol/L (3.5-5.0) 06/20/19 14:10 Chloride 102 mmol/L (101-111) 06/20/19 14:10 Carbon Dioxide 33 mmol/L (22-32) H 06/20/19 14:10 Anion Gap 5 mmol/L (2-11) 06/20/19 14:10 BUN 16 mg/dL (6-24) 06/23/19 05:40 Creatinine 0.61 mg/dL (0.51-0.95) 06/23/19 05:40 Est GFR ( Amer) 123.2 (>60) 06/23/19 05:40 Est GFR (Non-Af Amer) 101.8 (>60) 06/23/19 05:40 BUN/Creatinine Ratio 17.3 (8-20) 06/20/19 14:10 Glucose 85 mg/dL (70-100) 06/20/19 14:10 Calcium 9.4 mg/dL (8.6-10.3) 06/20/19 14:10 Total Bilirubin 0.30 mg/dL (0.2-1.0) 06/20/19 14:10 AST 15 U/L (13-39) 06/20/19 14:10 ALT 17 U/L (7-52) 06/20/19 14:10 Alkaline Phosphatase 108 U/L (34-104) H 06/20/19 14:10 Troponin I 0.01 ng/mL (<0.04) 06/20/19 22:29 C-Reactive Protein 7.87 mg/L (<8.01) 06/20/19 14:10 Total Protein 6.3 g/dL (6.4-8.9) L 06/20/19 14:10 Albumin 3.8 g/dL (3.2-5.2) 06/20/19 14:10 Globulin 2.5 g/dL (2-4) 06/20/19 14:10 Albumin/Globulin Ratio 1.5 (1-3) 06/20/19 14:10 Vancomycin Trough 13.1 mcg/mL 06/21/19 17:30 Hepatitis A IgM Ab Negative (Negative) 06/21/19 05:39 Hep Bs Antigen Negative (Negative) 06/21/19 05:39 Hep B Core IgM Ab Nonreactive (Nonreactive) 06/21/19 05:39 Hepatitis C Antibody Negative (Negative) 06/21/19 05:39 Hepatitis C Ab Index 0.03 s/c 06/21/19 05:39 Microbiology 06/20/19 22:29 Aerobic Blood Culture - Preliminary Blood Venous No Growth Day 2 Anaerobic Blood Culture - Preliminary No Growth Day 2 06/20/19 19:22 Aerobic Blood Culture - Preliminary Blood Venous No Growth Day 2 Anaerobic Blood Culture - Preliminary No Growth Day 2 06/20/19 18:22 Skin and Soft Tissue MRSA/MSSA (PCR - Final Toe - Right Mrsa Negative S.aureus Positive Gram Stain - Final Wound Culture - Final Staphylococcus Aureus Normal Denice Assessment: 1. Right 3rd toe chronic osteomyelitis. Right foot xray with signs of osteomyelitis. Afebrile and no leukocytosis. Blood cultures with no growth. Per the patient the erythema and edema are improving. PICC line was placed yesterday. Plan: Continue Cefazolin, transition to a continuous infusion at the time of discharge. She will need to have weekly labs while on IV ABX: CBC, CRP, and CMP. She should followup with ID outpatient in 2-3 weeks. 35 minutes floor time > 50% face to face in counseling patient regarding intermediate manager antibiotic treatment and side effects. We discussed when to call the office : fever, persistent nausea, and diarrhea.
--- NOTE | 2019-06-23 11:46 | PN ---
Subjective Date of Service: 06/23/19 Interval History: Pt is eager for d/c. She states she is feeling well and continues to deny pain in R 2nd, 3rd digits duet to paresthesias, numbness. She notes that her b/l hands were more numb than normal during MRI yesterday, but this resolved and returned to baseline once she was off the table. She has L arm soreness, erythema and is using an ice pack. She had a BM this morning, is eating well, and denies changes in urination. No other complaints today. Objective Active Medications: Acetaminophen (Tylenol Tab*) 650 mg PO Q6H PRN Chlorthalidone (Hygroton Tab*) 25 mg PO DAILY [facility] Cholecalciferol (Vitamin D Tab*) 5,000 units PO DAILY [facility] Digoxin (Lanoxin Tab*) 0.25 mg PO DAILY [facility] Diltiazem HCl (Cardizem Cd Cap*) 180 mg PO DAILY [facility] Heparin Sodium (Porcine) (Heparin Flush Picc/Ml/Cvc(*)) 1 - 3 ml FLUSH 0600, 1800 [facility]; Protocol Cefazolin Sodium/Dextrose (Kefzol 2 Gm Premix In Ors(*)) 2 gm in 50 mls @ 100 mls/hr IVPB Q8H [facility] Magnesium Oxide (Magox 400 Tab*) 400 mg PO DAILY [facility] Potassium Chloride (Klor Con Er Tab*) 10 meq PO BID [facility] Tramadol HCl (Ultram*) 50 mg PO Q6HR PRN Vital Signs: Temp Pulse Resp BP Pulse Ox 96.9 F 98 16 113/70 98 06/23/19 03:15 06/23/19 09:29 06/23/19 03:15 06/23/19 03:15 06/23/19 03:15 Oxygen Devices in Use Now: None Appearance: Pt is sitting up in bed, HOB elevated. She is in no acute distress. She is pleasant, cooperative, comfortable. Eyes: No Scleral Icterus, PERRLA Ears/Nose/Mouth/Throat: NL Teeth, Lips, Gums, Clear Oropharnyx, Mucous Membranes Moist Neck: NL Appearance and Movements; NL JVP, Trachea Midline Respiratory: Symmetrical Chest Expansion and Respiratory Effort, Clear to Auscultation Cardiovascular: NL Sounds; No Murmurs; No JVD, RRR, No Edema, - - R anterior chest PICC in place Abdominal: NL Sounds; No Tenderness; No Distention, No Hepatosplenomegaly Extremities: No Edema, No Clubbing, Cyanosis, - - L brachial area with erythema , warmth, edema, TTP. R 2nd digit with medial ulceration and scabbing skin; R 3rd digit with reduced erythema, slight ulceration with callus on plantar surface of toe. Neurological: Alert and Oriented x 3, NL Muscle Strength and Tone, - - Sensation decreased from b/l LE from mid-thigh distally; UE sensation decreased from forearm distally. Result Diagrams: 06/20/19 14:04 06/23/19 05:40 Additional Lab and Data: Labs from the past 2-3 months: TSH 1.4 ESR: 11 CRP: 7.8 B12: 505 B6: 3 B1: 122 SSA/SSB: negative MARÍA: negative Hep C: negative Microbiology and Other Data: Microbiology 06/20/19 18:22 Skin and Soft Tissue MRSA/MSSA (PCR - Final Toe - Right Mrsa Negative S.aureus Positive Gram Stain - Final Wound Culture - Final Staphylococcus Aureus Normal Denice 06/20/19 22:29 Aerobic Blood Culture - Preliminary Blood Venous No Growth Day 1 Anaerobic Blood Culture - Preliminary No Growth Day 1 06/20/19 19:22 Aerobic Blood Culture - Preliminary Blood Venous No Growth Day 1 Anaerobic Blood Culture - Preliminary No Growth Day 1 Assess/Plan/Problems-Billing Assessment: Ms. Dinh is a 53 yo F with a PMH of afib, HTN who was admitted on 06/20/19 with osteomyelitis to the right third toe secondary to newly diagnosed neuropathy of unknown etiology. 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 immune mediated neuropathy, hepatitis panel negative - Neurology consult appreciated - Brain, cervical, thoracic MRI shows c-spine spondylopathy with canal stenosis - Lyme Ab negative - Awaiting SPEP - Plan for LP in a.m.; last dose apixaban 06/23 0930 - Pt to f/u with Dr. Hutchinson outpatient (2) Osteomyelitis Comment: - To right third toe in setting of hammertoes and peripheral neuropathy with xray concerning for osteomyelitis - Wound culture: S. aureus, susceptible to Ancef - ID consulted and recommends PICC, continued Ancef - Will follow with ID outpatient in 1-2 weeks (3) Phlebitis Comment: -R brachial area with warmth, erythema, edema, TTP; IV removed -Ice/heat to area; continue Tylenol -Continue supportive care and monitor for need for further evaluation and intervention (4) Shoulder pain Comment: - Not anginal equivalent as trops and EKG negative - Suspect musculoskeletal - MRI c-spine reveals spondylopathy resulting in canal stenosis C3-4, C5-6 (5) Hypertension Comment: - SBP 110-130s - Continue chlorthalidone, diltiazem (6) Afib Comment: - Rate controlled - Continue digoxin, diltiazem - Holding apixaban for LP tomorrow a.m. (7) DVT prophylaxis Comment: - Holding apixaban for LP in a.m. (8) Full code status Comment: Status and Disposition: Inpatient. Anticipate discharge to home when medically stable.
--- NOTE | 2019-06-23 15:07 | PN ---
Subjective Date of Service: 06/23/19 Length of Stay: 3 Days Neurology is following for neuropathy. Interval History: She is resting comfortable. She received Eliquis this morning, so the LP cannot be done today. I plan on doing the Lp tomorrow. She still has numbness which has not changed over night. The redness on her toes has improved significantly with antibiotic therapy. She will receive antibiotic therapy through a picc at home. I confirmed that she never consumed excessive alcohol. She eats meat regularly. She was not exposed to heavy metals. "Of note, the patient was seen by Dr. Quiñonez from Podiatry in May who diagnosed her with hammer toes and flat feet. She was sent to Dr. Argueta for a NCS/EMG that was done on 04/30/2019. I reviewed the results that reported the following: "abnormal study due to sensorimotor axonal peripheral neuropathy and Left L5-S1 radiculopathies with possible L4 involvement." Previous labs: Labs from the past 2-3 months: TSH 1.4 ESR: 11 CRP: 7.8 B12: 505 B6: 3 B1: 122 SSA/SSB: negative MARÍA: negative Hep C: negative Lyme serum: negative Reviewed the imaging studies: She had an MRI lumbar spine on 05/09/2019. I reviewed the image. There is evidence of moderate right neural foraminal stenosis at L5-S1. There is central annular fissure at L5-S1 and left eccentric modic type 1 degenerative endplate, which in combination can explain the patient's low back pain. MRI brain without contrast: old left cerebellar infarction. No new ischemic infarction or demyelinating disease. MRI C spine without contrast: Moderate multilevel cervical spondylopathy causing canal stenosis at C3-4 through C5-6 MRI T spine without contrast: Mild multilevel thoracic spondylopathy without any significant canal stenosis. Review of Systems: Denied CP, SOB, or palpitations. Objective Active Medications: Acetaminophen (Tylenol Tab*) 650 mg PO Q6H PRN PRN Reason: MILD PAIN or TEMP > 100.4 Last Admin: 06/20/19 17:01 Dose: 650 mg Chlorthalidone (Hygroton Tab*) 25 mg PO DAILY [facility] Last Admin: 06/23/19 09:29 Dose: 25 mg Cholecalciferol (Vitamin D Tab*) 5,000 units PO DAILY [facility] Last Admin: 06/23/19 09:30 Dose: 5,000 units Digoxin (Lanoxin Tab*) 0.25 mg PO DAILY [facility] Last Admin: 06/23/19 09:29 Dose: 0.25 mg Diltiazem HCl (Cardizem Cd Cap*) 180 mg PO DAILY [facility] Last Admin: 06/23/19 09:29 Dose: 180 mg Heparin Sodium (Porcine) (Heparin Flush Picc/Ml/Cvc(*)) 1 - 3 ml FLUSH 0600, 1800 [facility]; Protocol Last Admin: 06/23/19 07:36 Dose: 1 ml Cefazolin Sodium/Dextrose (Kefzol 2 Gm Premix In Ors(*)) 2 gm in 50 mls @ 100 mls/hr IVPB Q8H [facility] Last Admin: 06/23/19 12:15 Dose: 100 mls/hr Magnesium Oxide (Magox 400 Tab*) 400 mg PO DAILY [facility] Last Admin: 06/23/19 09:29 Dose: 400 mg Potassium Chloride (Klor Con Er Tab*) 10 meq PO BID [facility] Last Admin: 06/23/19 09:30 Dose: 10 meq Tramadol HCl (Ultram*) 50 mg PO Q6HR PRN PRN Reason: PAIN - MILD Vital Signs 06/22/19 06/22/19 06/22/19 15:34 19:15 19:33 Temperature 97.7 F 98.1 F Pulse Rate 67 83 Respiratory 18 17 16 Rate Blood Pressure 129/67 139/74 (mmHg) O2 Sat by Pulse 100 99 Oximetry 06/22/19 06/23/19 06/23/19 23:15 03:15 09:29 Temperature 97.1 F 96.9 F Pulse Rate 65 74 98 Respiratory 16 16 Rate Blood Pressure 127/61 113/70 (mmHg) O2 Sat by Pulse 99 98 Oximetry 06/23/19 11:15 Temperature 97.5 F Pulse Rate 93 Respiratory 18 Rate Blood Pressure 134/80 (mmHg) O2 Sat by Pulse 99 Oximetry Intake and Output Last 24 Hours 06/21/19 06/22/19 06/23/19 06/24/19 06:59 06:59 06:59 06:59 Intake Total 900 3041 1852 360 Output Total 0 Balance 900 3041 1852 360 Weight 149 lb 9.6 oz 149 lb 9.6 oz Intake: IV Fluids 60 315 652 ABX - VANCOMYCIN 265 250 NS (0.9%) 60 50 402 IVPB 540 646 ABX - VANCOMYCIN 540 581 NS (0.9%) 65 Oral 300 2080 1200 360 Output: Urine 0 Other: # Bowel Movements 0 1 # Voids 0 0 0 Oxygen Devices in Use Now: None Neurology Exam: General: Well nourished, well developed, and in no acute distress HEENT: Normocephelic/atraumatic, sclera anicteric, mucous membranes moist Neck: Supple Chest: Clear to auscultation bilaterally Cardiovascular: Regular rate and rhythm without murmurs, rubs, gallops Extremities: No clubbing, cyanosis, or edema. Dry ulceration of the distal, lateral, right third and great toes. Neurological Findings: Awake, alert, and oriented to person, place, and time. Speech: fluent without dysarthria, repetition intact Cranial Nerve: PERRL, EOM intact, VFF, no nystagmus, face symmetric bilaterally , facial sensation intact, hearing intact to finger rub bilaterally, palate elevates symmetrically, tongue midline, SCM and Trapezius s/s. Motor: s/s throughout, proximal and distal extremities x4 tone/bulk normal, except for 4/5 EHL bilaterally Sensation: Distal to proximal sensory gradient to pinprick demarcated slightly above the knee bilaterally. Yesterday she had minimal vibration at the great toes, but today, vibration is absent at the toes bilaterally. She had 10 seconds on the right and 9 seconds on the left medial malleolus. Impaired propioception at the toes. No sensory level at the spine today. Deep Tendon Reflex: 1+ at the right bicep, 2+ in the triceps, 2+ brachioradialis , 2+ at the left bicep, 2+ at the knees, trace at the right ankle, 2+ at the left ankle. Positive crossed adductor signs right more than left. Finger to nose, rapid alternating movements intact without tremor, no dysdiadochokinesia Gait: intact with good arm swing and stride. She had trouble walking on her toes. Result Diagrams: 06/20/19 14:04 06/23/19 05:40 Additional Lab and Data: Labs from the past 2-3 months: TSH 1.4 ESR: 11 CRP: 7.8 B12: 505 B6: 3 B1: 122 SSA/SSB: negative MARÍA: negative Hep C: negative Microbiology and Other Data: Microbiology 06/20/19 18:22 Skin and Soft Tissue MRSA/MSSA (PCR - Final Toe - Right Mrsa Negative S.aureus Positive Gram Stain - Final Wound Culture - Final Staphylococcus Aureus Normal Denice 06/20/19 22:29 Aerobic Blood Culture - Preliminary Blood Venous No Growth Day 1 Anaerobic Blood Culture - Preliminary No Growth Day 1 06/20/19 19:22 Aerobic Blood Culture - Preliminary Blood Venous No Growth Day 1 Anaerobic Blood Culture - Preliminary No Growth Day 1 Assessment/Plan Mrs. Dinh is a 53-year-old right-handed non-diabetic female who has a 2-3 year history of positive paresthesia manifesting as tingling and burning sensation in her feet, and now has a 4-5 month history (since January 2019) of numbness in the distal lower extremity. On examination, the patient has evidence of ascending distal to proximal sensory gradient to pinprick, asymmetric reflexes at the ankles, and hyperreflexia at the knees suggestive of myelopathy. She had an EMG/NCS of the lower extremity in April 2019 that showed a large fiber neuropathy and left Lower lumbosacral radiculopathy. An MRI of the L spine was done in May which did not explain the patient's symptoms. Overall, the patient has evidence of a neuropathy and mild myelopathy presentation. MRI of the brain, C, and T spine revealed an old right cerebellar stroke (would cause some hyperreflexia on the right), and moderate spondylosis without myelopathy (may cause some hyperreflexia). The imaging studies do not explain the severe neuropathy. Therefore, I suspect she may have a idiopathic polyneuropathy at this point that could be genetically related (e.g., Charcot-Mable tooth). Recommendation: - LP to check for elevated protein (inflammatory demyelinating neuropathy) or lymphocytic pleocytosis (Lyme vs sarcoidosis(less likely)). - If the LP is negative, she needs outpatient follow-up with neurology. A referral to the neuromuscular clinic for genetic testing should be considered. - Pending SPEP, MMA, heavy metal screening, copper and zinc levels - We discussed fall precautions and the importance of checking her feet regularly. - Emphasized foot care - LP tomorrow morning (24 hours post Eliquis use) Time spent: 40 minutes
[2019-06-24] MEDS: ceFAZolin 2 GM PREMIX in ORs 2 GM/50 ML BAG IVPB SCH ×2 (04:15→12:02)
[2019-06-24] MEDS: Chlorthalidone TAB* 50 MG PO SCH (08:59)
[2019-06-24] MEDS: Potassium Chlor TAB* 10 MEQ TAB.ER PO SCH (09:00)
[2019-06-24] MEDS: Cholecalciferol TAB* 1000 UNITS PO SCH (09:01)
[2019-06-24] MEDS: Digoxin TAB* 0.25 MG PO SCH (09:02)
[2019-06-24] MEDS: Diltiazem CD CAP* 180 MG PO SCH (09:02)
[2019-06-24] MEDS: Magnesium Oxide TAB* 400 MG PO SCH (09:02)
--- NOTE | 2019-06-24 10:22 | PN ---
Progress Note - Progress Note Date of Service: 06/24/19 SOAP: Subjective: CC: toe infection HPI: 53 year old woman with neuropathy, right third toe swelling and redness; small wound no drainage. She feels well, no fever, rash or diarrhea. Objective: Vital Signs Temp 36.7 C 06/24/19 07:15 Pulse 68 06/24/19 09:23 Resp 12 06/24/19 07:15 BP 113/50 06/24/19 07:15 Pulse Ox 99 06/24/19 07:15 Intake & Output 06/23/19 06/24/19 06/24/19 18:59 06:59 18:59 Intake Total 870 640 Balance 870 640 Intake: IV Fluids 60 NS (0.9%) 60 IVPB 50 100 ABX - CEFAZOLIN 50 100 Oral 820 480 Other: Estimated Void Medium # Bowel Movements 0 # Voids 2 2 Gen:awake, no distress Neuro: decreased sensation to light touch BL feet HEENT: no thrush Heart:RRR no murmur Lungs:CTA BL Abd:+BS NTND soft Skin: no rash MSK: Right third toe edema, trace erythema, distal callous, small wound no expressible fluid Laboratory Results - last 24 hr 06/21/19 17:30 Lyme Total Antibody Negative Microbiology 06/20/19 22:29 Aerobic Blood Culture - Preliminary Blood Venous No Growth Day 3 Anaerobic Blood Culture - Preliminary No Growth Day 3 06/20/19 19:22 Aerobic Blood Culture - Preliminary Blood Venous No Growth Day 3 Anaerobic Blood Culture - Preliminary No Growth Day 3 Assessment: 1. MSSA osteomyelitis right toe 2. neuropathy Plan: 1. ancef continous infusion for discharge w weekly cbc, cmp, crp fu in 2 weeks
--- NOTE | 2019-06-24 11:00 | OP ---
Operative Report - Blank - Operative Report Date of Operation: 06/24/19 Note: Lumbar Puncture Procedure Note: Pre-operative diagnosis: polyneuropathy Post operative diagnosis: same Indication: Diagnostic Procedure Details: Consent: Informed consent was obtained. Time out was performed with FAMILIA Burris at 1012 a.m. A female facilities technician was present. Risks of the procedure were discussed including: infection, bleeding, pain, and headache. The patient agreed to proceed with the procedure. Eliquis was held for 24 hours. Under sterile conditions the patient was positioned in the right lateral decubitus position in a semi-fatal position. Betadine solution and sterile drapes were utilized. A 21g 3.5-inch spinal needle was inserted at the L3-4 interspace. Findings: 4 cc of clear spinal fluid was obtained Complications: none Condition: stable Plan: Ordered CSF cell count and diff, gram stain and culture, protein, glucose, IGG index, and O-Band. Follow-up with neurology as an outpatient. 06/24/2019 11:08 A.M.
--- NOTE | 2019-06-24 11:19 | PN ---
Subjective Date of Service: 06/24/19 Length of Stay: 4 Days Neurology is following for neuropathy. Interval History: She is wanting to go home so she can make it to work tomorrow. She still feels numb in her feet. She had an episode yesterday where she had numbness in the hands that resolved. She denied any headache or visual disturbance. She is very pleasant and cooperative. LP was done today. She tolerated the procedure well. "Of note, the patient was seen by Dr. Quiñonez from Podiatry in May who diagnosed her with hammer toes and flat feet. She was sent to Dr. Argueta for a NCS/EMG that was done on 04/30/2019. I reviewed the results that reported the following: "abnormal study due to sensorimotor axonal peripheral neuropathy and Left L5-S1 radiculopathies with possible L4 involvement." Previous labs: Labs from the past 2-3 months: TSH 1.4 ESR: 11 CRP: 7.8 B12: 505 B6: 3 B1: 122 SSA/SSB: negative MARÍA: negative Hep C: negative Lyme serum: negative Reviewed the imaging studies: She had an MRI lumbar spine on 05/09/2019. I reviewed the image. There is evidence of moderate right neural foraminal stenosis at L5-S1. There is central annular fissure at L5-S1 and left eccentric modic type 1 degenerative endplate, which in combination can explain the patient's low back pain. MRI brain without contrast: old left cerebellar infarction. No new ischemic infarction or demyelinating disease. MRI C spine without contrast: Moderate multilevel cervical spondylopathy causing canal stenosis at C3-4 through C5-6 MRI T spine without contrast: Mild multilevel thoracic spondylopathy without any significant canal stenosis. Review of Systems: Denied CP, SOB, or palpitations. Objective Active Medications: Acetaminophen (Tylenol Tab*) 650 mg PO Q6H PRN PRN Reason: MILD PAIN or TEMP > 100.4 Last Admin: 06/20/19 17:01 Dose: 650 mg Chlorthalidone (Hygroton Tab*) 25 mg PO DAILY [facility] Last Admin: 06/24/19 08:59 Dose: 25 mg Cholecalciferol (Vitamin D Tab*) 5,000 units PO DAILY [facility] Last Admin: 06/24/19 09:01 Dose: 5,000 units Digoxin (Lanoxin Tab*) 0.25 mg PO DAILY [facility] Last Admin: 06/24/19 09:02 Dose: 0.25 mg Diltiazem HCl (Cardizem Cd Cap*) 180 mg PO DAILY [facility] Last Admin: 06/24/19 09:02 Dose: 180 mg Heparin Sodium (Porcine) (Heparin Flush Picc/Ml/Cvc(*)) 1 - 3 ml FLUSH 0600, 1800 [facility]; Protocol Last Admin: 06/24/19 05:17 Dose: 1 ml Cefazolin Sodium/Dextrose (Kefzol 2 Gm Premix In Ors(*)) 2 gm in 50 mls @ 100 mls/hr IVPB Q8H [facility] Last Admin: 06/24/19 04:15 Dose: 100 mls/hr Magnesium Oxide (Magox 400 Tab*) 400 mg PO DAILY [facility] Last Admin: 06/24/19 09:02 Dose: 400 mg Potassium Chloride (Klor Con Er Tab*) 10 meq PO BID [facility] Last Admin: 06/24/19 09:00 Dose: 10 meq Tramadol HCl (Ultram*) 50 mg PO Q6HR PRN PRN Reason: PAIN - MILD Vital Signs 06/23/19 06/23/19 06/23/19 11:15 19:30 20:00 Temperature 97.5 F 98.2 F Pulse Rate 93 87 Respiratory 18 16 16 Rate Blood Pressure 134/80 112/58 (mmHg) O2 Sat by Pulse 99 99 Oximetry 06/23/19 06/24/19 06/24/19 23:15 03:15 07:15 Temperature 98.2 F 98 F 98.1 F Pulse Rate 53 64 58 Respiratory 16 16 12 Rate Blood Pressure 104/62 110/70 113/50 (mmHg) O2 Sat by Pulse 98 98 99 Oximetry 06/24/19 06/24/19 09:02 09:23 Temperature Pulse Rate 68 68 Respiratory Rate Blood Pressure (mmHg) O2 Sat by Pulse Oximetry Intake and Output Last 24 Hours 06/22/19 06/23/19 06/24/19 06/25/19 06:59 06:59 06:59 06:59 Intake Total 3041 1852 1510 Balance 3041 1852 1510 Weight 149 lb 9.6 oz Intake: IV Fluids 315 652 60 ABX - VANCOMYCIN 265 250 NS (0.9%) 50 402 60 IVPB 646 150 ABX - CEFAZOLIN 150 ABX - VANCOMYCIN 581 NS (0.9%) 65 Oral 0 1200 1300 Other: Estimated Void Medium # Bowel Movements 1 0 # Voids 0 0 2 Oxygen Devices in Use Now: None Neurology Exam: General: Well nourished, well developed, and in no acute distress HEENT: Normocephelic/atraumatic, sclera anicteric, mucous membranes moist Neck: Supple Chest: Clear to auscultation bilaterally Cardiovascular: Regular rate and rhythm without murmurs, rubs, gallops Extremities: No clubbing, cyanosis, or edema. Dry ulceration of the distal, lateral, right third and great toes. Neurological Findings: Awake, alert, and oriented to person, place, and time. Speech: fluent without dysarthria, repetition intact Cranial Nerve: PERRL, EOM intact, VFF, no nystagmus, face symmetric bilaterally , facial sensation intact, hearing intact to finger rub bilaterally, palate elevates symmetrically, tongue midline, SCM and Trapezius s/s. Motor: s/s throughout, proximal and distal extremities x4 tone/bulk normal, except for 4/5 EHL bilaterally Sensation: Distal to proximal sensory gradient to pinprick demarcated slightly above the knee bilaterally. Yesterday she had minimal vibration at the great toes, but today, vibration is absent at the toes bilaterally. She had 10 seconds on the right and 9 seconds on the left medial malleolus. Impaired propioception at the toes. No sensory level at the spine today. Deep Tendon Reflex: 1+ at the right bicep, 2+ in the triceps, 2+ brachioradialis , 2+ at the left bicep, 2+ at the right and 2 on the left knees, trace at the right ankle, 2+ at the left ankle. Positive crossed adductor signs right more than left. Finger to nose, rapid alternating movements intact without tremor, no dysdiadochokinesia Gait: intact with good arm swing and stride. She had trouble walking on her toes. Result Diagrams: 06/20/19 14:04 06/23/19 05:40 Additional Lab and Data: Labs from the past 2-3 months: TSH 1.4 ESR: 11 CRP: 7.8 B12: 505 B6: 3 B1: 122 SSA/SSB: negative MARÍA: negative Hep C: negative Microbiology and Other Data: Microbiology 06/20/19 18:22 Skin and Soft Tissue MRSA/MSSA (PCR - Final Toe - Right Mrsa Negative S.aureus Positive Gram Stain - Final Wound Culture - Final Staphylococcus Aureus Normal Denice 06/20/19 22:29 Aerobic Blood Culture - Preliminary Blood Venous No Growth Day 1 Anaerobic Blood Culture - Preliminary No Growth Day 1 06/20/19 19:22 Aerobic Blood Culture - Preliminary Blood Venous No Growth Day 1 Anaerobic Blood Culture - Preliminary No Growth Day 1 Assessment/Plan Mrs. Dihn is a 53-year-old right-handed non-diabetic female who has a 2-3 year history of positive paresthesia manifesting as tingling and burning sensation in her feet, and now has a 4-5 month history (since January 2019) of numbness in the distal lower extremity. On examination, the patient has evidence of ascending distal to proximal sensory gradient to pinprick, asymmetric reflexes at the ankles, and hyperreflexia at the knees (R>L). She had an EMG/NCS of the lower extremity in April 2019 that showed a large fiber neuropathy and left Lower lumbosacral radiculopathy. An MRI of the L spine was done in May which showed neural formainal stenosis at L5-S1. Overall, the patient has evidence of a neuropathy and mild asymmetric myelopathy on presentation. The asymmetric reflexes is most likely related to the chronic right cerebellar stroke and superimposed mild cervical spondylosis. 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 Recommendation: - Pending LP results for cell count and diff, protein, glucose, Lyme, Obands and IGG index. - Pending SPEP, MMA, heavy metal screening, copper and zinc levels - She needs outpatient follow-up with neurology. She was seen by Dr. Hutchinson while she is here. - A referral to the neuromuscular clinic for genetic testing should be considered. - We discussed fall precautions and the importance of checking her feet regularly. - Emphasized foot care - Restart Milla zeng Time spent: 25 minutes
[2019-06-24 11:50] VITALS: BP 130/42
[2019-06-24 11:57] LABS: Body Fluid Source Cerebral Spinal
[2019-06-24 12:17] LABS: CSF Glucose 55 mg/dL (40-70)
[2019-06-24 12:35] LABS: Body Fluid Mono 70 %
--- NOTE | 2019-06-24 14:32 | DS ---
CC: Dr. Limon; Dr. Hutchinson; Dr. Rees * DISCHARGE SUMMARY: DATE OF ADMISSION: 06/20/19 DATE OF DISCHARGE: 06/24/19 PRIMARY CARE PROVIDER: Dr. Limon. NEUROLOGIST: Dr. Hutchinson. INFECTIOUS DISEASE: Dr. Rees. ATTENDING PHYSICIAN: Dr. Garcia * (dictated by NORMA Villavicencio). PRIMARY DIAGNOSES: 1. Methicillin-susceptible Staphylococcus aureus osteomyelitis, right third toe. 2. Neuropathy. 3. Phlebitis. SECONDARY DIAGNOSES: 1. Atrial fibrillation. 2. Mild mitral regurgitation. CONSULTATIONS WHILE IN THE HOSPITAL: 1. Neurology, impression and plan: Discussed numbness primarily in legs to at least mid thigh raises possibility that this could be from cervical spine rather than peripheral neuropathy. If EMG really showed slowing, peripheral neuropathy is more likely, but distribution of numbness, brisk reflexes in the leg raises possibility of central process. Recommend MRI C-spine to assess cervical disks, MRI brain to screen for demyelinating process, Lyme titers. 2. Infectious Disease, recommendations: Cefazolin 2 g IV q.8 hours and then by continuous infusion at home for right third toe osteomyelitis. PICC ordered. Weekly CBC, CMP, CRP ordered. Follow up with ID in 1 to 2 weeks. Discussed side effects of antibiotics. STUDIES: 1. Thoracic spine MRI, impression: Mild multilevel thoracic spondylopathy. No cord or nerve root compression. 2. Brain MRI, impression: No acute intracranial abnormality. Old left cerebellar infarct. 3. MRI C-spine without contrast, impression: Moderate multilevel cervical spondylopathy causing canal stenosis at C3-4 through C4-5. DISCHARGE MEDICATIONS: Home medications: 1. Apixaban 5 mg p.o. b.i.d., resume tonight. 2. Chlorthalidone 25 mg p.o. daily. 3. Digoxin 0.25 mg p.o. daily. 4. Diltiazem 180 mg p.o. daily. 5. Magnesium oxide 250 mg p.o. daily. 6. Potassium chloride 10 mEq p.o. b.i.d. 7. Tramadol 50 mg p.o. q.6 hours p.r.n. pain. 8. Vitamin D 1 tab p.o. daily. New home medication: Ancef. HISTORY OF PRESENT ILLNESS/HOSPITAL COURSE: Ms. Dinh is a 53-year-old female with a past medical history of atrial fibrillation, mild mitral regurgitation, who presented to the ER on 06/20/19 with complaints of edema and erythema to the right third toe. For full and complete details, please see the history and physical dictated by Dr. Guerin, but in short, the patient presents with these complaints and was admitted to the hospital. The right third toe was edematous and erythematous; there were associated areas of eschar. Initially injury was likely due to hammertoe and neuropathy leading to subsequent osteomyelitis infection to the right third toe. The patient continues to deny sensation in the toes and has no pain in the toes. She was started on cefazolin throughout her hospital stay. She had good results with this medication. The appearance of the toe began to improve. It was recommended that she continue cefazolin 2 g IV q.8 hours while inpatient and then transition to continuous infusion at home. A PICC line was placed and VNS was set up in order that the patient will receive IV antibiotics at home. Weekly CBC, CMP, and CRP will be checked. She will follow up with Infectious Disease in 1 to 2 weeks. A culture of the right third digit was performed and was MRSA negative, Staph aureus positive with sensitivity to cefazolin; therefore, this is a good antibiotic choice. Upon presentation to the ER, the patient also complains of low back pain, lower extremity numbness since early summer. Outpatient MRI and EMG were performed. Neurology was consulted and recommended imaging studies including MRI of the brain, C-spine and T-spine. These revealed cervical spondylopathy leading to canal stenosis at C3-4, C5-6. With these results, Neurology recommends further testing with lumbar puncture for cell count and diff, protein, glucose, Lyme, O bands and IgG index. The patient also has a pending SPEP, MMA, heavy metal screening, maddy and zinc level. It is suggested to refer the patient to [facility] for genetic testing. She will follow up outpatient with Neurology regarding further workup of neuropathy, further referral, and review of results of tests performed in the hospital, which are pending at this time. Prior to PICC line placement, the patient was receiving IV antibiotics via left brachial area. The IV was removed. The patient complained of erythema and pain at the site. Ice and heat have helped to control the pain. Tylenol was ordered. We recommend continued supportive care and monitoring of the area for need for further evaluation. She was also noted to have shoulder pain during her hospital stay. EKG was within normal limits. Troponins were negative x3. MRI of the C-spine again revealed spondylopathy resulting in canal stenosis at C3-4, C5-6. This is likely musculoskeletal in nature. At the time of discharge , the patient continues to deny pain in the right toe. She also continues to have numbness and tingling in the lower extremity from mid thigh distally and occasionally in the hands. She has decreased sensation in that area. She denies chest pain, shortness of breath, vision changes, headache, cough, fevers , chills, abdominal pain, nausea, vomiting, diarrhea, constipation. We discussed long-term antibiotics may lead to diarrhea and it was recommended that she might benefit from probiotic. She denies myalgias or arthralgias, pain in the limbs. Ms. Dinh is stable for discharge to home. REVIEW OF SYSTEMS: A 10-point review of systems has been performed and all the pertinent positives and negatives are in the HPI. All other systems are negative. PHYSICAL EXAMINATION: Vital Signs: Temperature 97.6 temporal, heart rate 87, respiratory rate 14, oxygen saturation 97% on room air, blood pressure 130/42. General: Ms. Dinh is a well-developed, well-nourished, middle-aged white woman, who is sitting up in bed. She appears to be in no acute distress. She appears well. She is eager to be discharged. She is pleasant and cooperative. HEENT: PERRL. EOMI. Nonicteric sclerae. Hearing grossly intact. Oral mucous membranes are moist. There are no lesions. Tongue is at midline. The pharynx is clear. Palate elevates symmetrically. Cardiovascular: Regular rate and rhythm with S1, S2 present without murmurs, rubs, clicks, or gallops. There is no JVD. There is no peripheral edema. Radial and pedal pulses are palpable. Pulmonary: Symmetrical chest expansion without use of accessory muscles. Lungs are clear to auscultation bilaterally without rhonchi, wheezes, or rales. No digital clubbing or cyanosis. Abdomen: Bowel sounds in all quadrants. The abdomen is soft without tenderness to palpation. Musculoskeletal: Full range of motion without pain or deformities. The right second digit has a callus medially with no ulceration. The right third toe has a callus on the plantar surface that is flaking. There is mild erythema to the digit. There is no tenderness. Neuro: The patient is awake. She is alert and oriented x3 with cranial nerves grossly intact. She has motor strength of 5 /5 in the bilaterally upper and lower extremities. Equal crab backer strength. The patient has loss of sensation from approximately mid thigh distally, also with loss of sensation from forearms to fingertips. DISCHARGE PLAN: Ms. Dinh will be discharged to home. DIET: Heart-healthy. MEDICATIONS: Continue Ancef via continuous infusion. FOLLOWUP LABS: Weekly CBC, CMP, CRP. EDUCATION: 1. Follow up with primary care provider in 4 to 7 days. 2. Follow up with Infectious Disease in 1 to 2 weeks. Office will call with appointment date and time. 3. Follow up with Neurology in 1 to 2 weeks. Please call office to set up appointment, phone number has been given. Follow up on pending laboratory results. 4. Return to the ER or nearest hospital if you experience any worsening of symptoms, chest pain or discomfort, shortness of breath, high fevers, chills, night sweats, dizziness, lightheadedness, loss of consciousness, or any other worrisome signs or symptoms. This is a summarized report of a complex medical history and hospital stay. For further details, please see the entire medical record. TIME SPENT: Approximately 35 minutes was spent on this discharge, greater than half that time was spent [id number] with the patient discussing discharge plans and instructions. NORMA BUNDY [id number]/[facility] #: [id number] EVELINA
[2019-06-24 16:04] LABS: Albumin 2.9 g/dL (3.4-4.7); Albumin/Globulin Ratio 0.92; Total Protein(PEP) 6.1 g/dL (6.3 - 7.9)
[2019-06-25 12:34] LABS: Copper Level 1.52 mcg/mL (0.75-1.45); Zinc 0.64 mcg/mL (0.66-1.10)
[2019-06-25 16:34] LABS: CSF VDRL Negative (Negative)
[2019-06-26 12:49] LABS: Albumin 3490 mg/dL; CSF IGG 3.3 mg/dL (<=8.1); CSF Immunoglobulin G Synthesis 0.23 mg/24 h (<=12); Immunoglobulin G 1010 mg/dL (767 - 1590)
[2019-06-26 15:43] LABS: Oligoclonal Proteins Interpret 0 bands (<4)
== END 2019-06-24 13:40 | disposition home health service (06) | DRG 344 ==
LOC: ED 13:16 → MED 15:51
PROVIDERS: ADMIT Internal Medicine; ATTEND Internal Medicine
PROC: 02HV33Z Insertion of Infusion Device into Superior Vena Cava, Percutaneous Approach (ICD-10-PCS; 2019-06-22)
PROC: 009U3ZX Drainage of Spinal Canal, Percutaneous Approach, Diagnostic (ICD-10-PCS; principal; 2019-06-24)
DX: M86.9 Osteomyelitis, unspecified (principal); I48.91 Unspecified atrial fibrillation; G62.9 Polyneuropathy, unspecified; M20.41 Other hammer toe(s) (acquired), right foot; I10 Essential (primary) hypertension; M54.17 Radiculopathy, lumbosacral region; L97.519 Non-pressure chronic ulcer of other part of right foot with unspecified severity; G60.9 Hereditary and idiopathic neuropathy, unspecified; B95.61 Methicillin susceptible Staphylococcus aureus infection as the cause of diseases classified elsewhere; I34.0 Nonrheumatic mitral (valve) insufficiency; M48.02 Spinal stenosis, cervical region; M54.5 Low back pain; M25.512 Pain in left shoulder; M47.892 Other spondylosis, cervical region; M48.061 Spinal stenosis, lumbar region without neurogenic claudication; Q05.7 Lumbar spina bifida without hydrocephalus; M21.42 Flat foot [pes planus] (acquired), left foot; M21.41 Flat foot [pes planus] (acquired), right foot; I80.8 Phlebitis and thrombophlebitis of other sites; Z86.73 Personal history of transient ischemic attack (TIA), and cerebral infarction without residual deficits; Z79.899 Other long term (current) drug therapy; Z82.49 Family history of ischemic heart disease and other diseases of the circulatory system
CPT/HCPCS: 36415; 70551; 71045; 72141; 72146; 80053; 80074; 80202; 82175; 82300; 82525; 82565; 82784; 82945; 83655; 83825; 83916; 83921; 84155; 84157; 84165; 84484; 84520; 84630; 85025; 86140; 86592; 86618; 87040; 87070; 87077; 87186; 87205; 87640; 87641; 89051; 93005; 99283; A9270-GY; C1751; J0690; J0692; J3370

== ENCOUNTER 2019-11-22 10:40 | Inpatient (IN) | payer BC ==
--- OUTSIDE RECORDS SUMMARY | 2019-11-22 10:52 | XMS REPORT | Continuity of Care Document ---
:1965 External Reference #:[id number] Author Name Catarino Ordonez M.D. (transmitted by agent of provider Guera Adamet) Address [address] [place] [address] Care Team Providers Name Role Phone Sohan Gomez MD - Cardiovascular Care Team Information [employer] [phone] Disease Mercy Carcamo NP - Diabetes Care Team Information [employer] Educator Problems Active Problems Provider Date Paroxysmal supraventricular Robert Drummond M.D.,FACP Onset: 03/22/2008 tachycardia Mitral valve disorder Robert Drummond M.D.,FACP Onset: 06/04/2011 Essential hypertension Robert Drummond M.D.,FACP Onset: 09/22/2015 Chronic atrial fibrillation Robert Drummond M.D.,FACP Onset: 01/11/2016 Left atrial enlargement Robert Drummond M.D.,FACP Onset: 01/11/2016 Impaired fasting glycaemia Robert Drummond M.D.,FACP Onset: 03/08/2017 Raynaud's disease Catarino Ordonez M.D. Onset: 10/14/2019 Ulcer of foot Catarino Ordonez M.D. Onset: 10/14/2019 Social History Type Date Description Comments Sex Unknown Tobacco Use Start: Unknown Never Smoked Cigarettes ETOH Use 03/12/2018 Occasionally consumes alcohol Recreational Drug Use Denies Drug Use Tobacco Use Start: Unknown Patient has never smoked Smoking Status Reviewed: 10/14/19 Patient has never smoked Exercise Type/Frequency Exercises regularly Allergies, Adverse Reactions, Alerts Description No Known Drug Allergies Medications Active Medications SIG Qnty Indications Ordering Provider Date Tramadol HCL four times a day 60tabs Ada Mary, 02/05/2017 50mg as needed for MD Tablets pain Diltiazem HCL ER take one capsule 90caps Reyna Limon MD 02/03/2017 Coated Beads by mouth every 180mg day Caps ER 24HR Eliquis take one tablet 180tabs I48.1 eRyna Limon MD 01/11/2016 5mg Tablets by mouth twice daily Magnesium Oxide 1 tab po daily 30tabs Palmer Thomas NP 12/13/2015 250mg Tablets Klor-Con M10 take one tablet 180tabs I48.0 Anne Harrell, 10/27/2015 10Meq by mouth twice M.D. Tablets ER daily E87.6 Chlorthalidone take one tablet by 90tabs I10 Reyna Limon MD 09/22/2015 25mg Tablets mouth once daily Digoxin take one tablet by 90tabs I47.1 Reyna Limon MD 04/06/2014 250mcg Tablets mouth once daily I48.0 Vitamin D3 High Potency 1 by mouth every day Unknown 1000Unit Capsules History Medications Cephalexin take one 21caps Yuliya Pimentel 08/21/2019 - 500mg capsule by AYE Holley 09/12/2019 Capsules mouth three times a day Cephalexin take one 42caps M86.171 Yuliya Pimentel 07/31/2019 - 500mg capsule by AYE Holley 08/14/2019 Capsules mouth three times a day Medications Administered in Office Medication SIG Qnty Indications Ordering Provider Date Influenza,Unspecified Unknown 05/18/2018 Injection Immunizations CPT Code Status Date Vaccine Lot # [id number] Given 08/17/2019 Influenza Virus Vaccine, Quadrivalent, Split, Im Use 6-35mo 68475 Given 03/19/2018 Zoster (Shingles) Vaccine (HZV), Recombinant, Subunit, Adjuvanted 04866 Given 12/20/2017 Zoster (Shingles) Vaccine (HZV), Recombinant, Subunit, Adjuvanted 16668 Given 06/08/2017 Influenza Virus Vaccine, Quadrivalent, Split, Preservative Free 50010 Given 08/21/2016 Influ Virus Vaccine, Quadrivalent, Split Virus, [place] [address] Given 08/09/2016 Pneumonia Vaccine 85295 Given 06/22/2016 Tdap - Tetanus/Diptheria/Acellular Pertussis Q2035 Given 06/24/2015 Afluria Vaccine 12231 Given 08/13/2013 Flu Vaccine Split Virus Preservative Free For [id number] Indiv 3Yr Older Q2038 Given 05/07/2012 Fluzone Vaccine 06946 Given 06/19/2011 Influenza Virus 3Yrs & Over 79176 Given 06/18/2011 Influenza Virus 3Yrs & Over [id number] 49209 Given 06/18/2011 Influenza Virus 3Yrs & Over [id number] 12950 Given 11/08/2010 Influenza Virus 3Yrs & Over [id number] 30850 Given 04/06/2007 Tdap - Tetanus/Diptheria/Acellular Pertussis Vital Signs Date Vital Result Comment 10/14/2019 8:26am Height 63.5 inches 5'3.50" Weight 159.12 lb with shoes Heart Rate 72 /min left radial regular BP Systolic Sitting 128 mmHg ule reg cuff BP Diastolic Sitting 80 mmHg ule reg cuff BMI (Body Mass Index) 27.7 kg/m2 Dorsalis Pedis Pressure Left +2 Dorsalis Pedis Pressure Right +2 doppler Posterior Tibialis Pressure Left +2 LFem +1 Posterior Tibialis Pressure Right +2 RFem +2 10/12/2019 2:04pm Height 63.5 inches 5'3.50" Weight 159.00 lb Heart Rate 72 /min BP Systolic Sitting 120 mmHg BP Diastolic Sitting 76 mmHg Respiratory Rate 14 /min Body Temperature 99.0 F BMI (Body Mass Index) 27.7 kg/m2 Results Test Acquired Date Facility Test Result H/L Range Note Wound 09/02/2019 [facility] Wound/Misc SEE RESULT 1 Culture/Sensi [address] [place] [address] Stain [phone] Laboratory test 09/02/2019 [facility] C Reactive < 1.00 Normal <8.[address] Protein mg/[place] [address] [phone] CBC Auto Diff 09/02/2019 [facility] White Blood 9.1 Normal 3.5 -10.[address] Count 10^3/[place] [address] [phone] Red Blood Count 4.97 10^6/uL High 3.70-4.87 Hemoglobin 15.9 g/dL Normal 12.0-16.0 Hematocrit 45 % Normal 35-47 Mean Corpuscular Volume 91 fL Normal 80-97 Mean Corpuscular Hemoglobin 32 pg High 27-31 Mean Corpuscular HGB Conc 35 g/dL Normal 31-36 Red Cell Distribution Width 13 % Normal 10-15 Platelet Count 204 10^3/uL Normal 150-450 Mean Platelet Volume 8.4 fL Normal 7.4-10.4 Abs Neutrophils 6.7 10^3/uL Normal 1.5-7.7 Abs Lymphocytes 1.9 10^3/uL Normal 1.0-4.8 Abs Monocytes 0.4 10^3/uL Normal 0-0.8 Abs Eosinophils 0.0 10^3/uL Normal 0-0.6 Abs Basophils 0.0 10^3/uL Normal 0-0.2 Abs Nucleated RBC 0.0 10^3/uL Granulocyte % 73.6 % Lymphocyte % 20.7 % Monocyte % 4.8 % Eosinophil % 0.5 % Basophil % 0.4 % Nucleated Red Blood Cells % 0.0 CBC Auto 08/12/2019 [facility] White Blood 8.4 10^3/uL Normal 3.5-10.[address] [place] [address] [phone] Red Blood Count 4.73 10^6/uL Normal 3.70-4.87 Hemoglobin 15.1 g/dL Normal 12.0-16.0 Hematocrit 43 % Normal 35-47 Mean Corpuscular Volume 92 fL Normal 80-97 Mean Corpuscular Hemoglobin 32 pg High 27-31 Mean Corpuscular HGB Conc 35 g/dL Normal 31-36 Red Cell Distribution Width 13 % Normal 10-15 Platelet Count 198 10^3/uL Normal 150-450 Mean Platelet Volume 8.6 fL Normal 7.4-10.4 Abs Neutrophils 5.9 10^3/uL Normal 1.5-7.7 Abs Lymphocytes 1.9 10^3/uL Normal 1.0-4.8 Abs Monocytes 0.5 10^3/uL Normal 0-0.8 Abs Eosinophils 0.1 10^3/uL Normal 0-0.6 Abs Basophils 0.0 10^3/uL Normal 0-0.2 Abs Nucleated RBC 0.0 10^3/uL Granulocyte % 69.8 % Lymphocyte % 22.9 % Monocyte % 5.9 % Eosinophil % 1.0 % Basophil % 0.4 % Nucleated Red Blood Cells % 0.0 Laboratory test 08/12/2019 [facility] C Reactive 3.60 mg/L Normal <8.[address] [place] [address] [phone] Basic Metabolic 08/12/2019 [facility] Sodium 140 Normal 135- [address] mmol/[place] [address] [phone] Potassium 3.5 mmol/L Normal 3.5-5.0 Chloride 100 mmol/L Low 101-111 Co2 Carbon Dioxide 32 mmol/L Normal 22-32 Anion Gap 8 mmol/L Normal 2-11 Glucose 121 mg/dL High 70-100 Blood Urea Nitrogen 14 mg/dL Normal 6-24 Creatinine 0.76 mg/dL Normal 0.51-0.95 BUN/Creatinine Ratio 18.4 Normal 8-20 Calcium 10.0 mg/dL Normal 8.6-10.3 Egfr Non- 78.7 >60 Egfr 95.3 >60 2 CBC Auto 07/29/2019 [facility] White Blood 8.1 10^3/uL Normal 3.5-10.[address] [place] [address] [phone] Red Blood Count 4.31 10^6/uL Normal 3.70-4.87 Hemoglobin 13.7 g/dL Normal 12.0-16.0 Hematocrit 39 % Normal 35-47 Mean Corpuscular Volume 91 fL Normal 80-97 Mean Corpuscular Hemoglobin 32 pg High 27-31 Mean Corpuscular HGB Conc 35 g/dL Normal 31-36 Red Cell Distribution Width 13 % Normal 10-15 Platelet Count 179 10^3/uL Normal 150-450 Mean Platelet Volume 9.2 fL Normal 7.4-10.4 Abs Neutrophils 5.7 10^3/uL Normal 1.5-7.7 Abs Lymphocytes 1.7 10^3/uL Normal 1.0-4.8 Abs Monocytes 0.6 10^3/uL Normal 0-0.8 Abs Eosinophils 0.1 10^3/uL Normal 0-0.6 Abs Basophils 0.0 10^3/uL Normal 0-0.2 Abs Nucleated RBC 0.0 10^3/uL Granulocyte % 70.5 % Lymphocyte % 20.4 % Monocyte % 7.2 % Eosinophil % 1.5 % Basophil % 0.4 % Nucleated Red Blood Cells % 0.1 Comp Metabolic 07/29/2019 [facility] Sodium 141 mmol/L Normal 135-[address] [place] [address] [phone] Potassium 3.4 mmol/L Low 3.5-5.0 Chloride 103 mmol/L Normal 101-111 Co2 Carbon Dioxide 30 mmol/L Normal 22-32 Anion Gap 8 mmol/L Normal 2-11 Glucose 98 mg/dL Normal 70-100 Blood Urea Nitrogen 16 mg/dL Normal 6-24 Creatinine 0.70 mg/dL Normal 0.51-0.95 BUN/Creatinine Ratio 22.9 High 8-20 Calcium 9.4 mg/dL Normal 8.6-10.3 Total Protein 6.2 g/dL Low 6.4-8.9 Albumin 3.8 g/dL Normal 3.2-5.2 Globulin 2.4 g/dL Normal 2-4 Albumin/Globulin Ratio 1.6 Normal 1-3 Total Bilirubin 0.40 mg/dL Normal 0.2-1.0 Alkaline Phosphatase 103 U/L Normal 34-104 Alt 8 U/L Normal 7-52 Ast 20 U/L Normal 13-39 Egfr Non- 86.9 >60 Egfr 105.1 >60 3 Laboratory test 07/29/2019 [facility] C Reactive 2.51 mg/L Normal <8.[address] [place] [address] [phone] Laboratory test 07/22/2019 [facility] C Reactive 1.58 mg/L Normal <8.[address] [place] [address] [phone] CBC Auto Diff 07/22/2019 [facility] White Blood 8.7 Normal 3.5 -10.[address] Count 10^3/[place] [address] [phone] Red Blood Count 4.58 10^6/uL Normal 3.70-4.87 Hemoglobin 14.6 g/dL Normal 12.0-16.0 Hematocrit 41 % Normal 35-47 Mean Corpuscular Volume 90 fL Normal 80-97 Mean Corpuscular Hemoglobin 32 pg High 27-31 Mean Corpuscular HGB Conc 35 g/dL Normal 31-36 Red Cell Distribution Width 13 % Normal 10-15 Platelet Count 169 10^3/uL Normal 150-450 Mean Platelet Volume 8.9 fL Normal 7.4-10.4 Abs Neutrophils 5.8 10^3/uL Normal 1.5-7.7 Abs Lymphocytes 2.1 10^3/uL Normal 1.0-4.8 Abs Monocytes 0.6 10^3/uL Normal 0-0.8 Abs Eosinophils 0.1 10^3/uL Normal 0-0.6 Abs Basophils 0.0 10^3/uL Normal 0-0.2 Abs Nucleated RBC 0.0 10^3/uL Granulocyte % 67.3 % Lymphocyte % 23.8 % Monocyte % 7.2 % Eosinophil % 1.1 % Basophil % 0.6 % Nucleated Red Blood Cells % 0.0 Comp Metabolic 07/22/2019 [facility] Sodium 139 mmol/L Normal 135-[address] [place] [address] [phone] Potassium 3.2 mmol/L Low 3.5-5.0 Chloride 102 mmol/L Normal 101-111 Co2 Carbon Dioxide 30 mmol/L Normal 22-32 Anion Gap 7 mmol/L Normal 2-11 Glucose 85 mg/dL Normal 70-100 Blood Urea Nitrogen 8 mg/dL Normal 6-24 Creatinine 0.58 mg/dL Normal 0.51-0.95 BUN/Creatinine Ratio 13.8 Normal 8-20 Calcium 9.5 mg/dL Normal 8.6-10.3 Total Protein 6.3 g/dL Low 6.4-8.9 Albumin 4.0 g/dL Normal 3.2-5.2 Globulin 2.3 g/dL Normal 2-4 Albumin/Globulin Ratio 1.7 Normal 1-3 Total Bilirubin 0.40 mg/dL Normal 0.2-1.0 Alkaline Phosphatase 93 U/L Normal 34-104 Alt 5 U/L Low 7-52 Ast 18 U/L Normal 13-39 Egfr Non- 107.9 >60 Egfr 130.6 >60 4 Laboratory test 07/15/2019 [facility] C Reactive 1.71 mg/L Normal <8.[address] [place] [address] [phone] CBC Auto Diff 07/15/2019 [facility] White Blood 8.1 Normal 3.5 -10.[address] Count 10^3/[place] [address] [phone] Red Blood Count 4.46 10^6/uL Normal 3.70-4.87 Hemoglobin 14.1 g/dL Normal 12.0-16.0 Hematocrit 41 % Normal 35-47 Mean Corpuscular Volume 92 fL Normal 80-97 Mean Corpuscular Hemoglobin 32 pg High 27-31 Mean Corpuscular HGB Conc 35 g/dL Normal 31-36 Red Cell Distribution Width 13 % Normal 10-15 Platelet Count 159 10^3/uL Normal 150-450 Mean Platelet Volume 9.0 fL Normal 7.4-10.4 Abs Neutrophils 5.4 10^3/uL Normal 1.5-7.7 Abs Lymphocytes 2.0 10^3/uL Normal 1.0-4.8 Abs Monocytes 0.6 10^3/uL Normal 0-0.8 Abs Eosinophils 0.2 10^3/uL Normal 0-0.6 Abs Basophils 0.0 10^3/uL Normal 0-0.2 Abs Nucleated RBC 0.0 10^3/uL Granulocyte % 66.4 % Lymphocyte % 24.4 % Monocyte % 7.0 % Eosinophil % 1.9 % Basophil % 0.3 % Nucleated Red Blood Cells % 0.1 Comp Metabolic 07/15/2019 [facility] Sodium 139 mmol/L Normal 135-[address] [place] [address] [phone] Potassium 3.3 mmol/L Low 3.5-5.0 Chloride 101 mmol/L Normal 101-111 Co2 Carbon Dioxide 31 mmol/L Normal 22-32 Anion Gap 7 mmol/L Normal 2-11 Glucose 94 mg/dL Normal 70-100 Blood Urea Nitrogen 15 mg/dL Normal 6-24 Creatinine 0.66 mg/dL Normal 0.51-0.95 BUN/Creatinine Ratio 22.7 High 8-20 Calcium 9.6 mg/dL Normal 8.6-10.3 Total Protein 6.2 g/dL Low 6.4-8.9 Albumin 3.9 g/dL Normal 3.2-5.2 Globulin 2.3 g/dL Normal 2-4 Albumin/Globulin Ratio 1.7 Normal 1-3 Total Bilirubin 0.50 mg/dL Normal 0.2-1.0 Alkaline Phosphatase 86 U/L Normal 34-104 Alt 7 U/L Normal 7-52 Ast 19 U/L Normal 13-39 Egfr Non- 93.0 >60 Egfr 112.5 >60 5 Laboratory test 07/08/2019 [facility] C Reactive < 1.00 Normal <8.[address] Protein mg/[place] [address] [phone] Comp Metabolic 07/08/2019 [facility] Sodium 139 Normal 135- [address] mmol/[place] [address] [phone] Potassium 3.2 mmol/L Low 3.5-5.0 Chloride 101 mmol/L Normal 101-111 Co2 Carbon Dioxide 31 mmol/L Normal 22-32 Anion Gap 7 mmol/L Normal 2-11 Glucose 83 mg/dL Normal 70-100 Blood Urea Nitrogen 16 mg/dL Normal 6-24 Creatinine 0.67 mg/dL Normal 0.51-0.95 BUN/Creatinine Ratio 23.9 High 8-20 Calcium 9.5 mg/dL Normal 8.6-10.3 Total Protein 6.4 g/dL Normal 6.4-8.9 Albumin 3.9 g/dL Normal 3.2-5.2 Globulin 2.5 g/dL Normal 2-4 Albumin/Globulin Ratio 1.6 Normal 1-3 Total Bilirubin 0.40 mg/dL Normal 0.2-1.0 Alkaline Phosphatase 96 U/L Normal 34-104 Alt 7 U/L Normal 7-52 Ast 20 U/L Normal 13-39 Egfr Non- 91.4 >60 Egfr 110.6 >60 6 CBC Auto 07/08/2019 [facility] White Blood 8.9 10^3/uL Normal 3.5-10.[address] [place] [address] [phone] Red Blood Count 4.57 10^6/uL Normal 3.70-4.87 Hemoglobin 14.5 g/dL Normal 12.0-16.0 Hematocrit 41 % Normal 35-47 Mean Corpuscular Volume 90 fL Normal 80-97 Mean Corpuscular Hemoglobin 32 pg High 27-31 Mean Corpuscular HGB Conc 35 g/dL Normal 31-36 Red Cell Distribution Width 13 % Normal 10-15 Platelet Count 204 10^3/uL Normal 150-450 Mean Platelet Volume 9.2 fL Normal 7.4-10.4 Abs Neutrophils 5.9 10^3/uL Normal 1.5-7.7 Abs Lymphocytes 2.0 10^3/uL Normal 1.0-4.8 Abs Monocytes 0.8 10^3/uL Normal 0-0.8 Abs Eosinophils 0.2 10^3/uL Normal 0-0.6 Abs Basophils 0.0 10^3/uL Normal 0-0.2 Abs Nucleated RBC 0.0 10^3/uL Granulocyte % 66.1 % Lymphocyte % 22.8 % Monocyte % 8.6 % Eosinophil % 2.0 % Basophil % 0.5 % Nucleated Red Blood Cells % 0.0 CBC Auto 07/01/2019 [facility] White Blood 9.7 10^3/uL Normal 3.5-10.[address] [place] [address] [phone] Red Blood Count 4.56 10^6/uL Normal 3.70-4.87 Hemoglobin 14.4 g/dL Normal 12.0-16.0 Hematocrit 41 % Normal 35-47 Mean Corpuscular Volume 90 fL Normal 80-97 Mean Corpuscular Hemoglobin 32 pg High 27-31 Mean Corpuscular HGB Conc 35 g/dL Normal 31-36 Red Cell Distribution Width 12 % Normal 10-15 Platelet Count 218 10^3/uL Normal 150-450 Mean Platelet Volume 9.1 fL Normal 7.4-10.4 Abs Neutrophils 6.5 10^3/uL Normal 1.5-7.7 Abs Lymphocytes 2.3 10^3/uL Normal 1.0-4.8 Abs Monocytes 0.6 10^3/uL Normal 0-0.8 Abs Eosinophils 0.2 10^3/uL Normal 0-0.6 Abs Basophils 0.1 10^3/uL Normal 0-0.2 Abs Nucleated RBC 0.0 10^3/uL Granulocyte % 67.4 % Lymphocyte % 23.5 % Monocyte % 6.3 % Eosinophil % 1.7 % Basophil % 1.1 % Nucleated Red Blood Cells % 0.0 Comp Metabolic 07/01/2019 [facility] Sodium 139 mmol/L Normal 135-[address] [place] [address] [phone] Potassium 3.4 mmol/L Low 3.5-5.0 Chloride 100 mmol/L Low 101-111 Co2 Carbon Dioxide 31 mmol/L Normal 22-32 Anion Gap 8 mmol/L Normal 2-11 Glucose 82 mg/dL Normal 70-100 Blood Urea Nitrogen 14 mg/dL Normal 6-24 Creatinine 0.64 mg/dL Normal 0.51-0.95 BUN/Creatinine Ratio 21.9 High 8-20 Calcium 9.6 mg/dL Normal 8.6-10.3 Total Protein 6.4 g/dL Normal 6.4-8.9 Albumin 4.0 g/dL Normal 3.2-5.2 Globulin 2.4 g/dL Normal 2-4 Albumin/Globulin Ratio 1.7 Normal 1-3 Total Bilirubin 0.30 mg/dL Normal 0.2-1.0 Alkaline Phosphatase 115 U/L High 34-104 Alt 8 U/L Normal 7-52 Ast 22 U/L Normal 13-39 Egfr Non- 96.3 >60 Egfr 116.6 >60 7 Laboratory test 07/01/2019 [facility] C Reactive 2.11 mg/L Normal <8.[address] [place] [address] [phone] CBC Auto Diff 06/20/2019 [facility] White Blood 9.3 Normal 3.5 -10.8 [address] [facility] Count 10^3/[place] [address] [phone] Red Blood Count 4.84 10^6/uL Normal 3.70-4.87 Hemoglobin 15.4 g/dL Normal 12.0-16.0 Hematocrit 44 % Normal 35-47 Mean Corpuscular Volume 91 fL Normal 80-97 Mean Corpuscular Hemoglobin 32 pg High 27-31 Mean Corpuscular HGB Conc 35 g/dL Normal 31-36 Red Cell Distribution Width 12 % Normal 10-15 Platelet Count 198 10^3/uL Normal 150-450 Mean Platelet Volume 8.4 fL Normal 7.4-10.4 Abs Neutrophils 6.9 10^3/uL Normal 1.5-7.7 Abs Lymphocytes 1.6 10^3/uL Normal 1.0-4.8 Abs Monocytes 0.6 10^3/uL Normal 0-0.8 Abs Eosinophils 0.1 10^3/uL Normal 0-0.6 Abs Basophils 0.1 10^3/uL Normal 0-0.2 Abs Nucleated RBC 0.0 10^3/uL Granulocyte % 74.3 % Lymphocyte % 17.1 % Monocyte % 6.4 % Eosinophil % 1.6 % Basophil % 0.6 % Nucleated Red Blood Cells % 0.0 Comp Metabolic 06/20/2019 [facility] Sodium 140 mmol/L Normal 135-[address] [place] [address] [phone] Chloride 102 mmol/L Normal 101-111 Co2 Carbon Dioxide 33 mmol/L High 22-32 Glucose 85 mg/dL Normal 70-100 Blood Urea Nitrogen 13 mg/dL Normal 6-24 Creatinine 0.75 mg/dL Normal 0.51-0.95 BUN/Creatinine Ratio 17.3 Normal 8-20 Calcium 9.4 mg/dL Normal 8.6-10.3 Total Protein 6.3 g/dL Low 6.4-8.9 Albumin 3.8 g/dL Normal 3.2-5.2 Globulin 2.5 g/dL Normal 2-4 Albumin/Globulin Ratio 1.5 Normal 1-3 Total Bilirubin 0.30 mg/dL Normal 0.2-1.0 Alkaline Phosphatase 108 U/L High 34-104 Alt 17 U/L Normal 7-52 Egfr Non- 80.2 >60 Egfr 97.1 >60 8 Potassium 3.5 mmol/L Normal 3.5-5.0 Anion Gap 5 mmol/L Normal 2-11 Ast 15 U/L Normal 13-39 Laboratory test 06/20/2019 [facility] C Reactive 7.87 mg/L Normal <8.[address] [place] [address] [phone] Lead 05/27/2019 [facility] Lead,Venous, < 1.0 0.0-4.[address] B g/[place] [address] [phone] Venous/Capillary Venous Submitting Laboratory 10 Laboratory test 05/11/2019 [facility] Cytology SEE RESULT [address] [place] [address] [phone] Liver Function 04/30/2019 [facility] Total Protein 6.5 g/dL Normal 6.4-[address] .9 [place] [address] [phone] Albumin 4.1 g/dL Normal 3.2-5.2 Globulin 2.4 g/dL Normal 2-4 Albumin/Globulin Ratio 1.7 Normal 1-3 Total Bilirubin 0.40 mg/dL Normal 0.2-1.0 Direct Bilirubin 0.10 mg/dL Normal 0.03-0.18 Indirect Bilirubin 0.3 mg/dL Normal 0.3-1.0 Alkaline Phosphatase 92 U/L Normal 34-104 Alt 33 U/L Normal 7-52 Ast 28 U/L Normal 13-39 Laboratory 04/30/2019 [facility] TSH (Thyroid 0.99 Normal 0.34 -5.60 test finding [address] Stim Horm) mcIU/[place] [address] [phone] Vitamin B12 448 pg/mL Normal 180-914 12 Hemoglobin A1c (Glyco HGB) 5.3 % Normal 4.0-5.6 13 CBC Auto 04/30/2019 [facility] White Blood 9.0 10^3/uL Normal 3.5-10.[address] [place] [address] [phone] Red Blood Count 4.69 10^6/uL Normal 3.70-4.87 Hemoglobin 15.2 g/dL Normal 12.0-16.0 Hematocrit 43 % Normal 35-47 Mean Corpuscular Volume 92 fL Normal 80-97 Mean Corpuscular Hemoglobin 32 pg High 27-31 Mean Corpuscular HGB Conc 35 g/dL Normal 31-36 Red Cell Distribution Width 12 % Normal 10-15 Platelet Count 191 10^3/uL Normal 150-450 Mean Platelet Volume 8.9 fL Normal 7.4-10.4 Abs Neutrophils 6.7 10^3/uL Normal 1.5-7.7 Abs Lymphocytes 1.6 10^3/uL Normal 1.0-4.8 Abs Monocytes 0.5 10^3/uL Normal 0-0.8 Abs Eosinophils 0.1 10^3/uL Normal 0-0.6 Abs Basophils 0.0 10^3/uL Normal 0-0.2 Abs Nucleated RBC 0.0 10^3/uL Granulocyte % 74.7 % Lymphocyte % 18.3 % Monocyte % 5.5 % Eosinophil % 1.0 % Basophil % 0.5 % Nucleated Red Blood Cells % 0.1 Laboratory 04/30/2019 [facility] Erythrocyte Sed 14 mm/Hr Normal 0-29 test finding [address] [place] [address] [phone] Lead 04/30/2019 [facility] Lead,Venous, B 1.2 0.0-4.[address] g/[place] [address] [phone] Venous/Capillary Venous Submitting Laboratory Phone [phone] Protein 04/30/2019 [facility] Total 6.2 Abnormal 6.3 - Electrophoresis [address] Protein(Pep) g/dL 7.9 [place] [address] [phone] Albumin 3.3 g/dL Abnormal 3.4-4.7 Alpha-1 Globulin 0.2 g/dL 0.1-0.3 Alpha-2 Globulin 0.8 g/dL 0.6-1.0 Beta Globulin 1.0 g/dL 0.7-1.2 Gamma Globulin 0.9 g/dL 0.6-1.6 Albumin/Globulin Ratio 1.12 Impression See Comment 16 1 SEE RESULT BELOW Name: VICKY CARROLL : [address]: Yuliya Calvo Acct: [id number] Unit: [id number] AGE: 54 Location: [facility] Re09/02/19 SEX: F Status: REG REF SPEC: [id number] MARYAM: 09/02/[address]: Yuliya Holley NP REQ: [id number] RECD: 09/02/19 STATUS: COMP _ SOURCE: TOE SPDESC: ORDERED: Culture Stain COMMENTS: [id number] Specimen Description Right 2nd toe Procedure Result Reported Site Wound/Misc Gram Stain Final 09/03/19- 0754 ML 2+ Neutrophils 3+ Gram Positive Cocci Wound/Misc Culture Final 09/04/19- 1053 ML Organism 1 ENTEROCOCCUS FAECALIS Quantity 2+ Organism 2 NORMAL LANETTE Quantity 2+ 1. ENTEROCOCCUS FAECALIS M.I.C. RX --------- ------ Ampicillin <=2 S Penicillin 8 S Ciprofloxacin <=0.5 S Erythromycin 4 I Gentamicin High Level S Levofloxacin 1 S Linezolid 2 S * Quinupristin/Dalfopristin 4 R * Streptomycin High Level R Tetracycline >=16 R Tigecycline <=0.12 S Vancomycin 1 S Imipenem-Deduced S CONTINUED ON NEXT PAGE DEPARTMENT OF PATHOLOGY, [address] [place] [address] Esteban Miles M.D. Director [facility] # [id number] Patient: VICKY CARROLL [id number] (Continued) Specimen: [id number] Collected: 09/02/19 Received: 09/02/19 (Continued) Procedure Result Reported Site Wound/Misc Culture Final (continued) 09/04/19- 1052 1. ENTEROCOCCUS FAECALIS (continued) M.I.C. RX --------- ------ * Ampicillin/Sulbactam-Deduced S * These antibiotics are not available in the [facility] Formulary Contact the Microbiology Department for any additional antibiotic reporting. * ML - Main Lab . END OF REPORT DEPARTMENT OF PATHOLOGY, [address] [place] [address] Esteban Miles M.D. Director [facility] # [id number] 2 Because ethnic data is not always readily available, this report includes an eGFR for both -Americans and non- Americans. The National Kidney Disease Education Program (NKDEP) does not endorse the use of the MDRD equation for patients that are not between the ages of 18 and 70, are , have extremes of body size, muscle mass, or nutritional status, or are non- or non-. According to the National Kidney Foundation, irrespective of diagnosis, the stage of the disease is based on the level of kidney function: Stage Description GFR(mL/min/1.73 m(2)) 1 Kidney damage with normal or decreased GFR 90 2 Kidney damage with mild decrease in GFR 60-89 3 Moderate decrease in GFR 30-59 4 Severe decrease in GFR 15-29 5 Kidney failure <15 (or dialysis) 3 Because ethnic data is not always readily available, this report includes an eGFR for both -Americans and non- Americans. The National Kidney Disease Education Program (NKDEP) does not endorse the use of the MDRD equation for patients that are not between the ages of 18 and 70, are , have extremes of body size, muscle mass, or nutritional status, or are non- or non-. According to the National Kidney Foundation, irrespective of diagnosis, the stage of the disease is based on the level of kidney function: Stage Description GFR(mL/min/1.73 m(2)) 1 Kidney damage with normal or decreased GFR 90 2 Kidney damage with mild decrease in GFR 60-89 3 Moderate decrease in GFR 30-59 4 Severe decrease in GFR 15-29 5 Kidney failure <15 (or dialysis) 4 Because ethnic data is not always readily available, this report includes an eGFR for both -Americans and non- Americans. The National Kidney Disease Education Program (NKDEP) does not endorse the use of the MDRD equation for patients that are not between the ages of 18 and 70, are , have extremes of body size, muscle mass, or nutritional status, or are non- or non-. According to the National Kidney Foundation, irrespective of diagnosis, the stage of the disease is based on the level of kidney function: Stage Description GFR(mL/min/1.73 m(2)) 1 Kidney damage with normal or decreased GFR 90 2 Kidney damage with mild decrease in GFR 60-89 3 Moderate decrease in GFR 30-59 4 Severe decrease in GFR 15-29 5 Kidney failure <15 (or dialysis) 5 Because ethnic data is not always readily available, this report includes an eGFR for both -Americans and non- Americans. The National Kidney Disease Education Program (NKDEP) does not endorse the use of the MDRD equation for patients that are not between the ages of 18 and 70, are , have extremes of body size, muscle mass, or nutritional status, or are non- or non-. According to the National Kidney Foundation, irrespective of diagnosis, the stage of the disease is based on the level of kidney function: Stage Description GFR(mL/min/1.73 m(2)) 1 Kidney damage with normal or decreased GFR 90 2 Kidney damage with mild decrease in GFR 60-89 3 Moderate decrease in GFR 30-59 4 Severe decrease in GFR 15-29 5 Kidney failure <15 (or dialysis) 6 Because ethnic data is not always readily available, this report includes an eGFR for both -Americans and non- Americans. The National Kidney Disease Education Program (NKDEP) does not endorse the use of the MDRD equation for patients that are not between the ages of 18 and 70, are , have extremes of body size, muscle mass, or nutritional status, or are non- or non-. According to the National Kidney Foundation, irrespective of diagnosis, the stage of the disease is based on the level of kidney function: Stage Description GFR(mL/min/1.73 m(2)) 1 Kidney damage with normal or decreased GFR 90 2 Kidney damage with mild decrease in GFR 60-89 3 Moderate decrease in GFR 30-59 4 Severe decrease in GFR 15-29 5 Kidney failure <15 (or dialysis) 7 Because ethnic data is not always readily available, this report includes an eGFR for both -Americans and non- Americans. The National Kidney Disease Education Program (NKDEP) does not endorse the use of the MDRD equation for patients that are not between the ages of 18 and 70, are , have extremes of body size, muscle mass, or nutritional status, or are non- or non-. According to the National Kidney Foundation, irrespective of diagnosis, the stage of the disease is based on the level of kidney function: Stage Description GFR(mL/min/1.73 m(2)) 1 Kidney damage with normal or decreased GFR 90 2 Kidney damage with mild decrease in GFR 60-89 3 Moderate decrease in GFR 30-59 4 Severe decrease in GFR 15-29 5 Kidney failure <15 (or dialysis) 8 Because ethnic data is not always readily available, this report includes an eGFR for both -Americans and non- Americans. The National Kidney Disease Education Program (NKDEP) does not endorse the use of the MDRD equation for patients that are not between the ages of 18 and 70, are , have extremes of body size, muscle mass, or nutritional status, or are non- or non-. According to the National Kidney Foundation, irrespective of diagnosis, the stage of the disease is based on the level of kidney function: Stage Description GFR(mL/min/1.73 m(2)) 1 Kidney damage with normal or decreased GFR 90 2 Kidney damage with mild decrease in GFR 60-89 3 Moderate decrease in GFR 30-59 4 Severe decrease in GFR 15-29 5 Kidney failure <15 (or dialysis) 9 ADDITIONAL INFORMATION Testing performed by Inductively Coupled Plasma-Mass Spectrometry (ICP-MS). This test was developed and its performance characteristics determined by [facility] in a manner consistent with CLIA requirements. This test has not been cleared or approved by the U.S. Food and Drug Administration. 10 Test Performed by: [facility] [address] [place] [address] 11 SEE RESULT BELOW Name: VAHIDVICKY COCHRAN : [address]: Reyna Limon MD Acct: [id number] Unit: [id number] AGE: 53 Location: [facility] Re05/11/19 SEX: F Status: REG REF SPEC: [id number] MARYAM: 05/11/[address] [facility] DR: Reyna Limon MD REQ: [id number] RECD: 05/11/19 STATUS: SOUT _ ORDERED: TP IMAGE ANALYS, HPV/Thin Prep COMMENTS: [id number] Negative for Intraepithelial lesion or Malignancy Date Time Test Result Flag (u) Normal Range 05/11/19 1702 HPV RNA Negative Negative The high-risk HPV types detected by the assay include: 16, 18, 31, 33, 35, 39, 45, 51, 52, 56, 58, 59, 66, and 68. A. Ectocervical/Endocervical Specimen Adequacy: Satisfactory of evaluation Transformation zone component identified Patient Information: HPV: High risk HPV RNA testing regardless of pap results. Actual Specimen Date: 05/11/19 ?: N Post Menopausal?: Y Hysterectomy?: N Previous Abnormal Pap Smears?:N Signed by and Reported on: ODESSA Sims(ASCP) 1500 This Pap test was evaluated with the assistance of the EmotientPrep Test Imaging System. Due to cytologic findings at the bulldozer mechanic microscope, comprehensive manual rescreening by a Agricultural Research Technologist may be required. The Pap Smear is a screening test designed to aid in the detection of premalignant and malignant conditions of the uterine cervix. It is not a diagnostic procedure and should not be used as the sole means of detecting cervical cancer. Both false- positive and false- negative reports do occur. Depending on your risk status, a Pap smear should be obtained and evaluated every 1-3 years. END OF REPORT DEPARTMENT OF PATHOLOGY, [address] [place] [address] Esteban Miles M.D. Director [facility] # [id number] 12 Normal Range 180 to 914 Indeterminate Range 145 to 180 Deficient Range <145 13 Therapeutic target for the treatment of diabetes mellitus patients is <7% HBA1C, and in selective patients <6.0%. Please refer to [place] [employer] diabetic care guidelines for further information. 14 ADDITIONAL INFORMATION Testing performed by Inductively Coupled Plasma-Mass Spectrometry (ICP-MS). This test was developed and its performance characteristics determined by [facility] in a manner consistent with CLIA requirements. This test has not been cleared or approved by the U.S. Food and Drug Administration. 15 Test Performed by: [address] [address] 16 RESULT: No apparent monoclonal protein on serum electrophoresis. Test Performed by: [address] [address] Procedures Date Code Description Status 06/24/2019 05575 Spinal Puncture, Lumbar Diagnostic Completed 05/27/2019 [id number] Diabetic Foot Exam Completed 04/16/2019 [id number] Diabetic Foot Exam Completed 04/07/2019 [id number] Mammogram Completed 12/29/2018 [id number] Colonoscopy Completed 04/03/2018 [id number] Mammogram Completed 11/25/2015 [id number] Mammogram Completed 11/24/2014 [id number] Mammogram Completed 12/24/2013 [id number] Colonoscopy Completed 09/22/2013 [id number] Mammogram Completed 01/08/2012 [id number] Bone Mineral Density Test Completed 06/21/2011 [id number] Mammogram Completed 09/07/2009 [id number] Mammogram Completed Medical Devices Description No Information Available Encounters Type Date Location Provider Dx Diagnosis Office Visit 10/12/2019 [facility] Ananya Galvan L97.509 Non-pressure 2:00p Carol Lizama M.D. chronic ulcer oth Diseases prt unsp foot w unsp severity Office Visit 10/02/2019 [facility] Tricia Aden L97.509 Non- pressure 2:30p AT [facility] BRITTANY RN, HOOK TENDER-BC chronic ulcer oth prt unsp foot w unsp severity M86.671 Other chronic osteomyelitis, right ankle and foot G47.33 Obstructive sleep apnea (adult) (pediatric) S90.821A Blister (nonthermal), right foot, initial encounter Office Visit 09/23/2019 [facility] Shaneka Zuniga, L97.509 Non-pressure 2:45p Center AT [facility] chronic ulcer oth prt unsp foot w unsp severity Office Visit 09/17/2019 [facility] Kevin Galvan L97.509 Non-pressure 2:40p For Infectious Cindy Lizama chronic ulcer oth Diseases prt unsp foot w unsp severity Office Visit 09/16/2019 [facility] Shaneka Zuniga L97.509 Non-pressure 2:30p Center AT [facility] chronic ulcer oth prt unsp foot w unsp severity Office Visit 09/02/2019 [facility] Yuliya Pimentel L03.115 Cellulitis of 4:00p For Infectious Holley, LENS EDGER right lower limb Diseases L97.519 Non-prs chronic ulcer oth prt right foot w unsp severity G62.9 Polyneuropathy, unspecified Office Visit 08/14/2019 [facility] Yuliya Pimentel M86.171 Other acute 2:40p For Infectious Holley, LENS EDGER osteomyelitis, Diseases right ankle and foot B95.61 Methicillin suscep staph infct causing dis classd elswhr L97.519 Non-prs chronic ulcer oth prt right foot w unsp severity G62.9 Polyneuropathy, unspecified Office Visit 07/31/2019 [facility] Yuliya Pimentel M86.171 Other acute 2:20p For Infectious Holley, LENS EDGER osteomyelitis, Diseases right ankle and foot B95.61 Methicillin suscep staph infct causing dis classd elswhr 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 G62.9 Polyneuropathy, unspecified Office Visit 07/17/2019 [facility] Yuliya Pimentel M86.171 Other acute 2:40p For Infectious Holley, LENS EDGER osteomyelitis, Diseases right ankle and foot Z79.2 [facility] (current) use of antibiotics Office Visit 06/24/2019 [facility] Shaniqua G62.9 Polyneuropathy, 7:00a April Diaz MD unspecified M54.17 Radiculopathy, lumbosacral region M47.892 Other spondylosis, cervical region R20.0 Anesthesia of skin Office Visit 06/24/2019 [facility] Kevin Galvan M86.171 Other acute 10:38a For Infectious Cindy Lizama osteomyelitis, Diseases right ankle and foot G62.9 Polyneuropathy, unspecified Office 06/24/2019 [facility] M86.171 Other acute Visit 9:49a tavares Langford PA osteomyelitis, Hospitalists right ankle and foot B95.61 Methicillin suscep staph infct causing dis classd elswhr G62.9 Polyneuropathy, unspecified I80.9 Phlebitis and thrombophlebitis of unspecified site I48.91 Unspecified atrial fibrillation I34.0 Nonrheumatic mitral (valve) insufficiency Office Visit 06/23/2019 [facility] Shaniqua G62.9 Polyneuropathy, 7:00a April Diaz MD unspecified M54.17 Radiculopathy, lumbosacral region M47.892 Other spondylosis, cervical region Office Visit 06/23/2019 [facility] Yuliya Pimentel M86.171 Other acute 10:37a For Infectious Kishan LENS EDGER osteomyelitis, Diseases right ankle and foot G62.9 Polyneuropathy, unspecified Office 06/23/2019 [facility] G62.9 Polyneuropathy, Visit 9:48a tavares Langford PA unspecified Hospitalists M86.171 Other acute osteomyelitis, right ankle and foot I80.9 Phlebitis and thrombophlebitis of unspecified site M25.519 Pain in unspecified shoulder I10 Essential (primary) hypertension I48.91 Unspecified atrial fibrillation Office Visit 06/22/2019 [facility] Shaniqua G62.9 Polyneuropathy, 7:00a April Diaz MD unspecified M54.17 Radiculopathy, lumbosacral region Office Visit 06/22/2019 [facility] Kevin Galvan M86.671 Other chronic 10:35a For Infectious Cindy Lizama osteomyelitis, Diseases right ankle and foot M20.41 Other hammer toe(s) (acquired), right foot G62.9 Polyneuropathy, unspecified Office 06/22/2019 [facility] M86.171 Other acute Visit 9:48a Assoc,NORMA Iqbal osteomyelitis, Hospitalists right ankle and foot G90.09 Other idiopathic peripheral autonomic neuropathy M25.519 Pain in unspecified shoulder I10 Essential (primary) hypertension I48.91 Unspecified atrial fibrillation Office Visit 06/21/2019 [facility] Barron R20.0 Anesthesia of 7:00a April Hutchinson MD skin Office Visit 06/21/2019 [facility] Doris Obando, M86.171 Other acute 9:47a Assoc,pc Hospitalists N.P. osteomyelitis, right ankle and foot G90.09 Other idiopathic peripheral autonomic neuropathy I48.91 Unspecified atrial fibrillation I10 Essential (primary) hypertension M25.519 Pain in unspecified shoulder Office Visit 06/20/2019 [facility] Brianna M86.671 Other chronic 9:47a Assoc,tavares Braden M.D. osteomyelitis, Hospitalists right ankle and foot G90.09 Other idiopathic peripheral autonomic neuropathy I48.91 Unspecified atrial fibrillation M25.519 Pain in unspecified shoulder Office Visit 05/11/2019 4:00p [facility] Reyna Limon MD Z00.00 [facility] general adult medical exam w/o abnormal findings Z12.4 Encounter for screening for malignant neoplasm of cervix M47.16 Other spondylosis with myelopathy, lumbar region I10 Essential (primary) hypertension I48.1 Persistent atrial fibrillation D48.5 Neoplasm of uncertain behavior of skin Assessments Date Code Description Provider 10/14/2019 L97.509 Non-pressure chronic ulcer of other Catarino Ordonez M.D. part of unspecified foot with unspecified severity 10/14/2019 L97.509 Non-pressure chronic ulcer of other Shaneka Zuniga MD part of unspecified foot with unspecified severity 10/14/2019 I73.00 Raynaud's syndrome without gangrene Catarino Ordonez M.D. 10/12/2019 L97.509 Non-pressure chronic ulcer of other Kevin Lizama M.D. part of unspecified foot with unspecified severity 10/09/2019 L97.509 Non-pressure chronic ulcer of other Tricia Aden DNP , RN, part of unspecified foot with HOOK TENDER-BC unspecified severity 10/09/2019 S90.921A Unspecified superficial injury of Tricia Aden DNP, RN, right foot, initial encounter HOOK TENDER-BC 10/02/2019 L97.509 Non-pressure chronic ulcer of other Tricia Aden DNP , RN, part of unspecified foot with HOOK TENDER-BC unspecified severity 10/02/2019 M86.671 Other chronic osteomyelitis, right Tricia Aden DNP, RN, ankle and foot HOOK TENDER-BC 10/02/2019 G47.33 Obstructive sleep apnea (adult) Tricia Aden DNP, RN, (pediatric) HOOK TENDER-BC 10/02/2019 S90.821A Blister (nonthermal), right foot, Tricia Aden DNP, RN, initial encounter HOOK TENDER-BC 09/23/2019 L97.509 Non-pressure chronic ulcer of other Shaneka Zuniga MD part of unspecified foot with unspecified severity 09/17/2019 L97.509 Non-pressure chronic ulcer of other Kevin Lizama M.D. part of unspecified foot with unspecified severity 09/16/2019 L97.509 Non-pressure chronic ulcer of other Shaneka Zuniga MD part of unspecified foot with unspecified severity 09/02/2019 L03.115 Cellulitis of right lower limb Yuliya Holley, LENS EDGER 09/02/2019 L97.519 Non-pressure chronic ulcer of other Yuliya Holley NP part of right foot with unspecified severity 09/02/2019 G62.9 Polyneuropathy, unspecified Yuliya Holley, LENS EDGER 08/14/2019 M86.171 Other acute osteomyelitis, right Yuliya Holley LENS EDGER ankle and foot 08/14/2019 B95.61 Methicillin susceptible Yuliya Holley NP Staphylococcus aureus infection as the cause of diseases classified elsewhere 08/14/2019 L97.519 Non-pressure chronic ulcer of other Yuliya Holley NP part of right foot with unspecified severity 08/14/2019 G62.9 Polyneuropathy, unspecified Yuliya Holley, LENS EDGER 07/31/2019 M86.171 Other acute osteomyelitis, right Yuliya Holley LENS EDGER ankle and foot 07/31/2019 B95.61 Methicillin susceptible Yuliya Holley NP Staphylococcus aureus infection as the cause of diseases classified elsewhere 07/31/2019 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 ankle and foot 06/24/2019 M47.892 Other spondylosis, cervical region Shaniqua Diaz MD 06/24/2019 B95.61 Methicillin susceptible NORMA Villavicencio Staphylococcus aureus infection as the cause of diseases classified elsewhere 06/24/2019 R20.0 Anesthesia of skin Shaniqua Diaz MD 06/24/2019 G62.9 Polyneuropathy, unspecified Kevin Lizama M.D. 06/24/2019 G62.9 Polyneuropathy, unspecified NORMA Villavicencio 06/24/2019 I80.9 Phlebitis and thrombophlebitis of NORMA Villavicencio unspecified site 06/24/2019 I48.91 Unspecified atrial fibrillation NORMA Villavicencio 06/24/2019 I34.0 Nonrheumatic mitral (valve) NORMA Villavicencio insufficiency 06/23/2019 G62.9 Polyneuropathy, unspecified Shaniqua Diaz MD 06/23/2019 M86.171 Other acute osteomyelitis, right Yuliya Holley NP ankle and foot 06/23/2019 M54.17 Radiculopathy, lumbosacral region Shaniqua Diaz MD 06/23/2019 G62.9 Polyneuropathy, unspecified Mel Martin MS 06/23/2019 M47.892 Other spondylosis, cervical region Shaniqua Diaz MD 06/23/2019 G62.9 Polyneuropathy, unspecified Yuliya Holley NP 06/23/2019 M86.171 Other acute osteomyelitis, right Mel Martin MS ankle and foot 06/23/2019 I80.9 Phlebitis and thrombophlebitis of Mel Martin MS unspecified site 06/23/2019 M25.519 Pain in unspecified shoulder Melmary ann Martin MS 06/23/2019 I10 Essential (primary) hypertension Mel Mario PA 06/23/2019 I48.91 Unspecified atrial fibrillation Mel Mario MS 06/22/2019 G62.9 Polyneuropathy, unspecified Shaniqua Diaz MD 06/22/2019 M86.671 Other chronic osteomyelitis, right Kevin Lizama M.D. ankle and foot 06/22/2019 M54.17 Radiculopathy, lumbosacral region Shaniqua Diaz MD 06/22/2019 M86.171 Other acute osteomyelitis, right Mel Martin MS ankle and foot 06/22/2019 M20.41 Other hammer toe(s) (acquired), Kevin Lizama M.D. right foot 06/22/2019 G90.09 Other idiopathic peripheral Mel Mario MS autonomic neuropathy 06/22/2019 G62.9 Polyneuropathy, unspecified Kevin Lizama M.D. 06/22/2019 M25.519 Pain in unspecified shoulder Melmary ann Martin MS 06/22/2019 I10 Essential (primary) hypertension Mel MarioNORMA 06/22/2019 I48.91 Unspecified atrial fibrillation Mel Martin, PA 06/21/2019 R20.0 Anesthesia of skin Barron Hutchinson MD 06/21/2019 M86.171 Other acute osteomyelitis, right Doris Obando, N.P. ankle and foot 06/21/2019 G90.09 Other idiopathic peripheral Doris Obando, N.P. autonomic neuropathy 06/21/2019 I48.91 Unspecified atrial fibrillation Doris Obando N.P. 06/21/2019 I10 Essential (primary) hypertension Doris Obando, N.P. 06/21/2019 M25.519 Pain in unspecified shoulder Doris Obando, N.P. 06/20/2019 M86.671 Other chronic osteomyelitis, right Brianna Braden M.D. ankle and foot 06/20/2019 G90.09 Other idiopathic peripheral Brianna Braden M.D. autonomic neuropathy 06/20/2019 I48.91 Unspecified atrial fibrillation Brianna Braden M.D. 06/20/2019 M25.519 Pain in unspecified shoulder Brianna Braden M.D. 05/11/2019 Z00.00 Encounter for general adult medical Reyna Limon MD examination without abnormal findings 05/11/2019 Z12.4 Encounter for screening for Reyna Limon MD malignant neoplasm of cervix 05/11/2019 M47.16 Other spondylosis with myelopathy, Reyna Limon MD lumbar region 05/11/2019 I10 Essential (primary) hypertension Reyna Limon MD 05/11/2019 I48.1 Persistent atrial fibrillation Reyna Limon MD 05/11/2019 D48.5 Neoplasm of uncertain behavior of Reyna Limon MD skin Plan of Treatment Future Appointment(s):10/28/2019 2:30 pm - Yuliya Holley NP at [facility]/06/2020 3:40 pm - Reyna Limon MD at [facility] Internal [facility] - [facility]10/14/2019 - Catarino Ordonez M.D.L97.509 Non- pressure chronic ulcer of other part of unspecified foot with unspecified severityComments:The following is discussed with Vicky at the time of her consultation:Based on the recently acquirednormal TRACE, clinical history and readily palpable lower extremity pulses, Vicky does not appear to suffer from chronic flow-limiting arterial insufficiency.At this time no further vascular workup or vascular intervention appears to be warranted.I73.00 Raynaud's syndrome without gangreneComments:The patient does report cold sensitivity in the fingers and toes when she is exposed to cold temperatures for prolonged periods.Possibly the wounds at her right second and third toes are being exacerbated by vasospasm secondary to Raynaud's phenomenon.She was advised to keep her extremities warm at all times, particularly during the colder months. In more severe cases of Raynaud's phenomenon, pharmacotherapy such as calcium channel blockers could be considered but these are infrequently necessary. Functional Status Description No Information Available Mental Status Description No Information Available Referrals Refer to Reason for Referral Status Appt Date Wound Clinic 54 yo with PMH significant for right 3 rd toe Sent osteomyelitis idiopathic peripheral neuropathy with chronic wound to the right 2nd toe [address] [place] [address] [phone] Catarino Ordonez MD 54 yo with osteomyelitis of the right 3 rd toe, Sent ABIs non compressible, chronic wound right 2nd toe. 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
--- OUTSIDE RECORDS SUMMARY | 2019-11-22 10:52 | XMS REPORT | Continuity of Care Document ---
:1965 External Reference #:[id number] Author Name Yuliya Holley NP (transmitted by agent of provider Sarah Eid) Address [address] [place] [address] Care Team Providers Name Role Phone Sohan Gomez MD - Cardiovascular Care Team Information Mini Lab Operator [phone] Disease Mercy Carcamo NP - Diabetes Care Team Information Mini Lab Operator Educator Problems Active Problems Provider Date Paroxysmal supraventricular Robert Drummond M.D.,FACP Onset: 03/22/2008 tachycardia Mitral valve disorder Robert Drummond M.D.,FACP Onset: 06/04/2011 Essential hypertension Robert Drummond M.D.,FACP Onset: 09/22/2015 Chronic atrial fibrillation Robert Drummond M.D.,FACP Onset: 01/11/2016 Left atrial enlargement Robert Drummond M.D.,FACP Onset: 01/11/2016 Impaired fasting glycaemia Robert Drummond M.D.,FACP Onset: 03/08/2017 Ulcer of foot Catarino Ordonez M.D. Onset: 10/14/2019 Raynaud's disease Catarino Ordonez M.D. Onset: 10/14/2019 Social History Type Date Description Comments Sex Unknown Tobacco Use Start: Unknown Never Smoked Cigarettes ETOH Use 03/12/2018 Occasionally consumes alcohol Recreational Drug Use Denies Drug Use Tobacco Use Start: Unknown Patient has never smoked Smoking Status Reviewed: 10/28/19 Patient has never smoked Exercise Type/Frequency Exercises [...] 24HR Eliquis take one tablet 180tabs I48.1 Reyna Limon MD 01/11/2016 5mg Tablets by mouth [...] CPT Code Status Date Vaccine Lot # [id number] Given 08/17/2019 Influenza Virus Vaccine, Quadrivalent, Split, Im Use 6-35mo 80628 Given 03/19/2018 Zoster (Shingles) Vaccine (HZV), Recombinant, Subunit, Adjuvanted 78084 Given 12/20/2017 Zoster (Shingles) Vaccine (HZV), Recombinant, Subunit, Adjuvanted 23745 Given 06/08/2017 Influenza Virus Vaccine, Quadrivalent, Split, Preservative Free 78029 Given 08/21/2016 Influ Virus Vaccine, Quadrivalent, Split Virus, [place] [address] Given 08/09/2016 Pneumonia Vaccine 65190 Given 06/22/2016 Tdap - Tetanus/Diptheria/Acellular Pertussis Q2035 Given 06/24/2015 Afluria Vaccine 95242 Given 08/13/2013 Flu Vaccine Split Virus Preservative Free For [id number] Indiv 3Yr Older Q2038 Given 05/07/2012 Fluzone Vaccine 45972 Given 06/19/2011 Influenza Virus 3Yrs & Over 46439 Given 06/18/2011 Influenza Virus 3Yrs & Over [id number] 36409 Given 06/18/2011 Influenza Virus 3Yrs & Over [id number] 52203 Given 11/08/2010 Influenza Virus 3Yrs & Over [id number] 90195 Given 04/06/2007 Tdap - Tetanus/Diptheria/Acellular Pertussis Vital Signs Date Vital Result Comment 10/28/2019 2:30pm Height 63.5 inches 5'3.50" Weight 159.00 lb Heart Rate 72 /min BP Systolic Sitting 140 mmHg BP Diastolic Sitting 84 mmHg Respiratory Rate 14 /min Body Temperature 98.8 F BMI (Body Mass Index) 27.7 kg/m2 10/14/2019 8:26am Height 63.5 inches 5'3.50" Weight [...] Posterior Tibialis Pressure Right +2 RFem +2 Results Test Acquired Date Facility Test Result H/L Range Note Wound 09/02/2019 [facility] Wound/Misc SEE RESULT 1 Culture/Sensi [address] [place] [address] Stain [phone] Laboratory test 09/02/2019 [facility] C Reactive < 1.00 Normal <8.[address] Protein mg/L [place], [place] [address]74 [phone] CBC Auto Diff 09/02/2019 [facility] White Blood 9.1 Normal 3.5 -10.[address] Count 10^3/[place] [address] [phone] Red Blood Count 4.97 10^6/uL High 3.70-4.87 [...] Blood Cells % 0.0 CBC Auto 08/12/2019 [facility] White Blood 8.4 10^3/uL Normal 3.5-10.[address] [place] [address] [phone] Red Blood Count 4.73 10^6/uL Normal 3.70-4.87 [...] Blood Cells % 0.0 Laboratory test 08/12/2019 [facility] C Reactive 3.60 mg/L Normal <8.[address] [place] [address] [phone] Basic Metabolic 08/12/2019 [facility] Sodium 140 Normal 135- [address] mmol/[place] [address] [phone] Potassium 3.5 mmol/L Normal 3.5-5.0 Chloride 100 mmol/L Low 101-111 Co2 Carbon Dioxide 32 mmol/L Normal 22-32 Anion Gap 8 mmol/L Normal 2-11 Glucose 121 mg/dL High 70-100 Blood Urea Nitrogen 14 mg/dL Normal 6-24 Creatinine 0.76 mg/dL Normal 0.51-0.95 BUN/Creatinine Ratio 18.4 Normal 8-20 Calcium 10.0 mg/dL Normal 8.6-10.3 Egfr Non- 78.7 >60 Egfr 95.3 >60 2 CBC Auto 07/29/2019 [facility] White Blood 8.1 10^3/uL Normal 3.5-10.[address] [place] [address] [phone] Red Blood Count 4.31 10^6/uL Normal 3.70-4.87 [...] Blood Cells % 0.1 Comp Metabolic 07/29/2019 [facility] Sodium 141 mmol/L Normal 135-[address] [place] [address] [phone] Potassium 3.4 mmol/L Low 3.5-5.0 Chloride 103 [...] Egfr 105.1 >60 3 Laboratory test 07/29/2019 [facility] C Reactive 2.51 mg/L Normal <8.[address] [place] [address] [phone] Laboratory test 07/22/2019 [facility] C Reactive 1.58 mg/L Normal <8.[address] [place] [address] [phone] CBC Auto Diff 07/22/2019 [facility] White Blood 8.7 Normal 3.5 -10.[address] Count 10^3/[place] [address] [phone] Red Blood Count 4.58 10^6/uL Normal 3.70-4.87 [...] Blood Cells % 0.0 Comp Metabolic 07/22/2019 [facility] Sodium 139 mmol/L Normal 135-[address] [place], [place] [address] [phone] Potassium 3.2 mmol/L Low 3.5-5.0 Chloride 102 [...] Egfr 130.6 >60 4 Laboratory test 07/15/2019 [facility] C Reactive 1.71 mg/L Normal <8.[address] [place] [address] [phone] CBC Auto Diff 07/15/2019 [facility] White Blood 8.1 Normal 3.5 -10.[address] Count 10^3/[place] [address] [phone] Red Blood Count 4.46 10^6/uL Normal 3.70-4.87 [...] Blood Cells % 0.1 Comp Metabolic 07/15/2019 [facility] Sodium 139 mmol/L Normal 135-[address] [place] [address] [phone] Potassium 3.3 mmol/L Low 3.5-5.0 Chloride 101 [...] Egfr 112.5 >60 5 Laboratory test 07/08/2019 [facility] C Reactive < 1.00 Normal <8.[address] Protein mg/[place] [address] [phone] Comp Metabolic 07/08/2019 [facility] Sodium 139 Normal 135- [address] mmol/[place] [address] [phone] Potassium 3.2 mmol/L Low 3.5-5.0 Chloride 101 [...] Egfr 110.6 >60 6 CBC Auto 07/08/2019 [facility] White Blood 8.9 10^3/uL Normal 3.5-10.[address] [place] [address] [phone] Red Blood Count 4.57 10^6/uL Normal 3.70-4.87 [...] Blood Cells % 0.0 CBC Auto 07/01/2019 [facility] White Blood 9.7 10^3/uL Normal 3.5-10.[address] [place] [address] [phone] Red Blood Count 4.56 10^6/uL Normal 3.70-4.87 [...] Blood Cells % 0.0 Comp Metabolic 07/01/2019 [facility] Sodium 139 mmol/L Normal 135-[address] [place] [address] [phone] Potassium 3.4 mmol/L Low 3.5-5.0 Chloride 100 [...] Egfr 116.6 >60 7 Laboratory test 07/01/2019 [facility] C Reactive 2.11 mg/L Normal <8.[address] [place] [address] [phone] CBC Auto Diff 06/20/2019 [facility] White Blood 9.3 Normal 3.5 -10.[address] Count 10^3/[place] [address] [phone] Red Blood Count 4.84 10^6/uL Normal 3.70-4.87 [...] Blood Cells % 0.0 Comp Metabolic 06/20/2019 [facility] Sodium 140 mmol/L Normal 135-[address] [place] [address] [phone] Chloride 102 mmol/L Normal 101-111 Co2 Carbon [...] 15 U/L Normal 13-39 Laboratory test 06/20/2019 [facility] C Reactive 7.87 mg/L Normal <8.[address] [place] [address] [phone] Lead 05/27/2019 [facility] Lead,Venous, < 1.0 0.0-4.[address] B g/[place] [address] [phone] Venous/Capillary Venous Submitting Laboratory 10 Laboratory test 05/11/2019 [facility] Cytology SEE RESULT [address] [place] [address] [phone] Liver Function 04/30/2019 [facility] Total Protein 6.5 g/dL Normal 6.4-[address] .9 [place] [address] [phone] Albumin 4.1 g/dL Normal 3.2-5.2 Globulin 2.4 g/dL Normal 2-4 Albumin/Globulin Ratio 1.7 Normal 1-3 Total Bilirubin 0.40 mg/dL Normal 0.2-1.0 Direct Bilirubin 0.10 mg/dL Normal 0.03-0.18 Indirect Bilirubin 0.3 mg/dL Normal 0.3-1.0 Alkaline Phosphatase 92 U/L Normal 34-104 Alt 33 U/L Normal 7-52 Ast 28 U/L Normal 13-39 Laboratory 04/30/2019 [facility] TSH (Thyroid 0.99 Normal 0.34 -5.60 test finding [address] Stim Horm) mcIU/[place] [address] [phone] Vitamin B12 448 pg/mL Normal 180-914 12 Hemoglobin A1c (Glyco HGB) 5.3 % Normal 4.0-5.6 13 CBC Auto 04/30/2019 [facility] White Blood 9.0 10^3/uL Normal 3.5-10.[address] [place] [address] [phone] Red Blood Count 4.69 10^6/uL Normal 3.70-4.87 [...] Red Blood Cells % 0.1 Laboratory 04/30/2019 [facility] Erythrocyte Sed 14 mm/Hr Normal 0-29 test finding [address] [place] [address] [phone] Lead 04/30/2019 [facility] Lead,Venous, B 1.2 0.0-4.[address] g/[place] [address] [phone] Venous/Capillary Venous Submitting Laboratory Phone [phone] 15 Protein 04/30/2019 [facility] Total 6.2 Abnormal 6.3 - Electrophoresis [address] Protein(Pep) g/dL 7.9 [place] [address] [phone] Albumin 3.3 g/dL Abnormal 3.4-4.7 Alpha-1 Globulin 0.2 g/dL 0.1-0.3 Alpha-2 Globulin 0.8 g/dL 0.6-1.0 Beta Globulin 1.0 g/dL 0.7-1.2 Gamma Globulin 0.9 g/dL 0.6-1.6 Albumin/Globulin Ratio 1.12 Impression See Comment 16 1 SEE RESULT BELOW Name: VICKY CARROLL : [address]: Yuliya Stroud Acct: [id number] Unit: [id number] AGE: 54 Location: [facility] Re09/02/19 SEX: F Status: REG REF SPEC: [id number] MARYAM: 09/02/19 [facility] DR: Yuliya Holley NP REQ: [id number] RECD: 09/02/19 STATUS: COMP _ SOURCE: TOE SPDESC: ORDERED: Culture Stain COMMENTS: [id number] Specimen Description Right 2nd toe Procedure Result [...] CONTINUED ON NEXT PAGE DEPARTMENT OF PATHOLOGY, [address] [place] [address] Esteban Miles M.D. Director [facility] # [id number] Patient: VICKY CARROLL [id number] (Continued) Specimen: [id number] Collected: 09/02/19161 Received: 09/02/19 (Continued) Procedure Result Reported Site Wound/Misc Culture Final (continued) 09/04/19 4434 1. ENTEROCOCCUS FAECALIS (continued) MGloriaIGloriaCGloria RX --------- ------ * Ampicillin/Sulbactam-Deduced S * These antibiotics are not available in the [facility] Formulary Contact the Microbiology Department for any additional antibiotic reporting. * ML - Main Lab . END OF REPORT DEPARTMENT OF PATHOLOGY, [address] [place] [address] Esteban Miles M.D. Director [facility] # [id number] 2 Because ethnic data is not always [...] developed and its performance characteristics determined by [facility] in a manner consistent with CLIA requirements. This test has not been cleared or approved by the U.S. Food and Drug Administration. 10 Test Performed by: [facility] [address] [place] [address] 11 SEE RESULT BELOW Name: VICKY CARROLL : [address]: Reyna Limon MD Acct: [id number] Unit: [id number] AGE: 53 Location: [facility] Re05/11/19 SEX: F Status: REG REF SPEC: [id number] MARYAM: 05/11/19 [facility] DR: Reyna Limon MD REQ: [id number] RECD: 05/11/19 STATUS: SOUT _ ORDERED: TP IMAGE ANALYS, HPV/Thin Prep COMMENTS: [id number] Negative for Intraepithelial lesion or Malignancy Date [...] was evaluated with the assistance of the ThinPrep Test Imaging System. Due to cytologic findings at the starch treating assistant microscope, comprehensive manual rescreening by a Aws Developer may be required. The Pap Smear is [...] years. END OF REPORT DEPARTMENT OF PATHOLOGY, [address] [place] [address] Esteban Miles M.D. Director [facility] # [id number] 12 Normal Range 180 to 914 Indeterminate Range 145 to 180 Deficient Range <145 13 Therapeutic target for the treatment of diabetes mellitus patients is <7% HBA1C, and in selective patients <6.0%. Please refer to [place] [employer] diabetic care guidelines for further information. 14 ADDITIONAL INFORMATION Testing performed by Inductively Coupled Plasma-Mass Spectrometry (ICP-MS). This test was developed and its performance characteristics determined by [facility] in a manner consistent with CLIA requirements. This test has not been cleared or approved by the U.S. Food and Drug Administration. 15 Test Performed by: [address] [address] 16 RESULT: No apparent monoclonal protein on serum electrophoresis. Test Performed by: [address] [address] Procedures Date Code Description Status 06/24/2019 24581 Spinal Puncture, Lumbar Diagnostic Completed 05/27/2019 382167222 Diabetic Foot Exam Completed 04/16/2019 545731115 Diabetic Foot Exam Completed 04/07/2019 [id number] Mammogram Completed 12/29/2018 [id number] Colonoscopy Completed 04/03/2018 15047161 Mammogram Completed 11/25/2015 [id number] Mammogram Completed 11/24/2014 15277446 Mammogram Completed 12/24/2013 40243643 Colonoscopy Completed 09/22/2013 [id number] Mammogram Completed 01/08/2012 828490067 Bone Mineral Density Test Completed 06/21/2011 52081796 Mammogram Completed 09/07/2009 [id number] Mammogram Completed Medical Devices Description No Information Available Encounters Type Date Location Provider Dx Diagnosis Office Visit 10/21/2019 [facility] Aaaksh Paz7.509 Non- pressure 2:30p [place] [facility] chronic ulcer oth prt unsp foot w unsp severity Office Visit 10/14/2019 [facility] Aakash Paz7.509 Non- pressure 12:45p AT [facility] chronic ulcer oth prt unsp foot w unsp severity Office Visit 10/12/2019 [facility] Ananya Finn7.509 Non-pressure 2:00p Infectious Cindy Lizama chronic ulcer oth Diseases prt unsp foot w unsp severity Office Visit 10/09/2019 [facility] Tricia Aden L97.509 Non- pressure 2:30p AT [facility] BRITTANY RN, [facility]- chronic ulcer oth prt unsp foot w unsp severity S90.821A Blister (nonthermal), right foot, initial encounter S90.921A Unspecified superficial injury of right foot, init encntr Office Visit 10/02/2019 2:30p Wound Care Tricia Aden L97.509 Non- pressure Center AT [facility] FAMILIA SOTO, [facility] chronic ulcer oth prt unsp foot w unsp severity M86.671 Other chronic osteomyelitis, right ankle and foot G47.33 Obstructive sleep apnea (adult) (pediatric) S90.821A Blister (nonthermal), right foot, initial encounter Office Visit 09/23/2019 [facility] Shaneka Zuniga L97.509 Non-pressure 2:45p Center AT [facility] chronic ulcer oth prt unsp foot w unsp severity Office Visit 09/17/2019 [facility] Kevin Galvan L97.509 Non-pressure 2:40p For Carol Lizama M.D. chronic ulcer oth Diseases prt unsp foot w unsp severity Office Visit 09/16/2019 [facility] Shaneka Zuniga L97.509 Non-pressure 2:30p Center AT [facility] chronic ulcer oth prt unsp foot w unsp severity Office Visit 09/02/2019 [facility] Yuliya Pimentel L03.115 Cellulitis of 4:00p For Infectious Kishan CHEMICAL WASTE MANAGEMENT TECHNICIAN right lower limb Diseases L97.519 Non-prs chronic ulcer oth prt right foot w unsp severity G62.9 Polyneuropathy, unspecified Office Visit 08/14/2019 [facility] Yuliya Pimentel M86.171 Other acute 2:40p For Infectious Kishan, CHEMICAL WASTE MANAGEMENT TECHNICIAN osteomyelitis, Diseases right ankle and foot B95.61 Methicillin suscep staph infct causing dis classd elswhr L97.519 Non-prs chronic ulcer oth prt right foot w unsp severity G62.9 Polyneuropathy, unspecified Office Visit 07/31/2019 [facility] Yuliya Martlatia M86.171 Other acute 2:20p For Infectious Holley, CHEMICAL WASTE MANAGEMENT TECHNICIAN osteomyelitis, Diseases right ankle and foot B95.61 Methicillin suscep staph infct causing dis classd elswhr Z79.2 terminal gauger (current) use of antibiotics G62.9 Polyneuropathy, unspecified [facility] Other acute 2:40p For Infectious Holley, CHEMICAL WASTE MANAGEMENT TECHNICIAN osteomyelitis, Diseases right ankle and foot Z79.2 terminal gauger (current) use of antibiotics Office Visit 06/24/2019 [facility] Shaniqua G62.9 Polyneuropathy, 7:00a April Diaz MD unspecified M54.17 Radiculopathy, lumbosacral region M47.892 Other spondylosis, cervical region R20.0 Anesthesia of skin Office Visit 06/24/2019 [facility] Kevin Galvan M86.171 Other acute 10:38a For Infectious Cindy Lizama osteomyelitis, Diseases right ankle and foot G62.9 Polyneuropathy, unspecified Office 06/24/2019 [facility] M86.171 Other acute Visit 9:49a Assoc,NORMA Iqbal osteomyelitis, Hospitalists right ankle and foot B95.61 Methicillin suscep staph infct causing dis classd elswhr G62.9 Polyneuropathy, unspecified I80.9 Phlebitis and thrombophlebitis of unspecified site I48.91 Unspecified atrial fibrillation I34.0 Nonrheumatic mitral (valve) insufficiency Office Visit 06/23/2019 [facility] Shaniqua G62.9 Polyneuropathy, 7:00a April Diaz MD unspecified M54.17 Radiculopathy, lumbosacral region M47.892 Other spondylosis, cervical region Office Visit 06/23/2019 [facility] M86.171 Other acute 10:37a For Infectious Holley, CHEMICAL WASTE MANAGEMENT TECHNICIAN osteomyelitis, Diseases right ankle and foot G62.9 Polyneuropathy, unspecified Office 06/23/2019 [facility] G62.9 Polyneuropathy, Visit 9:48a Assoc,tavares Martin PA unspecified Hospitalists M86.171 Other acute osteomyelitis, right ankle and foot I80.9 Phlebitis and thrombophlebitis of unspecified site M25.519 Pain in unspecified shoulder I10 Essential (primary) hypertension I48.91 Unspecified atrial fibrillation Office Visit 06/22/2019 [facility] Shan[facility]a G62.9 Polyneuropathy, 7:00a Clinic MD Emily unspecified M54.17 Radiculopathy, lumbosacral region Office Visit 06/22/2019 [facility] Kevin Galvan M86.671 Other chronic 10:35a For Infectious Cindy Lizama osteomyelitis, Diseases right ankle and foot M20.41 Other hammer toe(s) (acquired), right foot G62.9 Polyneuropathy, unspecified Office 06/22/2019 [facility] Mel M86.171 Other acute Visit 9:48a Assoctavares PA osteomyelitis, Hospitalists right ankle and foot G90.09 Other idiopathic peripheral autonomic neuropathy M25.519 Pain in unspecified shoulder I10 Essential (primary) hypertension I48.91 Unspecified atrial fibrillation Office Visit 06/21/2019 [facility] Barron R20.0 Anesthesia of 7:00a Clinic MD Jasper skin Office Visit 06/21/2019 [facility] Doris Obando, M86.171 Other acute 9:47a tavares Langford [facility] osteomyelitis, right ankle and foot G90.09 Other idiopathic peripheral autonomic neuropathy I48.91 Unspecified atrial fibrillation I10 Essential (primary) hypertension M25.519 Pain in unspecified shoulder Office Visit 06/20/2019 [facility] Brianna M86.671 Other chronic 9:47a Assoctavares M.D. osteomyelitis, Hospitalists right ankle and foot G90.09 Other idiopathic peripheral autonomic neuropathy I48.91 Unspecified atrial fibrillation M25.519 Pain in unspecified shoulder Office Visit 05/11/2019 4:00p [facility] Internal Reyna Limon MD Z00.00 [facility] w/o abnormal findings Z12.4 Encounter for screening for malignant neoplasm of cervix M47.16 Other spondylosis with myelopathy, lumbar region I10 Essential (primary) hypertension I48.1 Persistent atrial fibrillation D48.5 Neoplasm of uncertain behavior of skin Assessments Date Code Description Provider 10/28/2019 L97.509 Non-pressure chronic ulcer of other Yuliyarajat Holley NP part of unspecified foot with unspecified severity 10/21/2019 L97.509 Non-pressure chronic ulcer of other Shaneka [...] , RN, part of unspecified foot with DRUM SANDER-BC unspecified severity 10/09/2019 S90.821A Blister (nonthermal), right foot, Tricia Aden DNP, RN, initial encounter DRUM SANDER-BC 10/09/2019 S90.921A Unspecified superficial injury of Tricia Aden DNP, RN, right foot, initial encounter DRUM SANDER-BC 10/02/2019 L97.509 Non-pressure chronic ulcer of other Tricia Aden DNP , RN, part of unspecified foot with DRUM SANDER-BC unspecified severity 10/02/2019 M86.671 Other chronic osteomyelitis, right Tricia Aden DNP, RN, ankle and foot DRUM SANDER-BC 10/02/2019 G47.33 Obstructive sleep apnea (adult) Tricia Aden DNP, RN, (pediatric) DRUM SANDER-BC 10/02/2019 S90.821A Blister (nonthermal), right foot, Tricia Aden DNP, RN, initial encounter DRUM SANDER-BC 09/23/2019 L97.509 Non-pressure chronic ulcer of other Shaneka Zuniga MD part of unspecified foot with unspecified severity 09/17/2019 L97.509 Non-pressure chronic ulcer of other Kevin Lizama M.D. part of unspecified foot with unspecified severity 09/16/2019 L97.509 Non-pressure chronic ulcer of other Shaneka Zuniga MD part of unspecified foot with unspecified severity 09/02/2019 L03.115 Cellulitis of right lower limb Yuliya Holley, CHEMICAL WASTE MANAGEMENT TECHNICIAN 09/02/2019 L97.519 Non-pressure chronic ulcer of other Yuliya Holley, CHEMICAL WASTE MANAGEMENT TECHNICIAN part of right foot with unspecified severity 09/02/2019 G62.9 Polyneuropathy, unspecified Yuliya Holley, CHEMICAL WASTE MANAGEMENT TECHNICIAN 08/14/2019 M86.171 Other acute osteomyelitis, right Yuliya Holley , CHEMICAL WASTE MANAGEMENT TECHNICIAN ankle and foot 08/14/2019 B95.61 Methicillin susceptible Yuliya Holley, CHEMICAL WASTE MANAGEMENT TECHNICIAN Staphylococcus aureus infection as the cause of diseases classified elsewhere 08/14/2019 L97.519 Non-pressure chronic ulcer of other Yuliya Holley, CHEMICAL WASTE MANAGEMENT TECHNICIAN part of right foot with unspecified severity 08/14/2019 G62.9 Polyneuropathy, unspecified Yuliya Holley, CHEMICAL WASTE MANAGEMENT TECHNICIAN 07/31/2019 M86.171 Other acute osteomyelitis, right Yuliya Holley , CHEMICAL WASTE MANAGEMENT TECHNICIAN ankle and foot 07/31/2019 B95.61 Methicillin susceptible Yuliya Holley, CHEMICAL WASTE MANAGEMENT TECHNICIAN Staphylococcus aureus infection as the cause of diseases classified elsewhere 07/31/2019 Z79.2 intermediate (current) use of Yuliya Margarito Holley, CHEMICAL WASTE MANAGEMENT TECHNICIAN antibiotics 07/31/2019 G62.9 Polyneuropathy, unspecified Yuliya Holley, CHEMICAL WASTE MANAGEMENT TECHNICIAN 07/17/2019 M86.171 Other acute osteomyelitis, right Yuliya Holley , CHEMICAL WASTE MANAGEMENT TECHNICIAN ankle and foot 07/17/2019 Z79.2 terminal gauger (current) use of Yuliya Margarito Holley, CHEMICAL WASTE MANAGEMENT TECHNICIAN antibiotics 06/24/2019 G62.9 Polyneuropathy, unspecified Shaniqua Diaz MD 06/24/2019 M86.171 Other acute osteomyelitis, right NORMA Villavicencio ankle and foot 06/24/2019 M54.17 Radiculopathy, lumbosacral region Shaniqua Diaz MD 06/24/2019 M86.171 Other acute osteomyelitis, right Kevin Lizama M.D. ankle and foot 06/24/2019 M47.892 Other spondylosis, cervical region Shaniqua Diaz MD 06/24/2019 B95.61 Methicillin susceptible NROMA Villavicencio Staphylococcus aureus infection as the cause [...] M86.171 Other acute osteomyelitis, right Yuliya Holley , AYE ankle and foot 06/23/2019 M54.17 Radiculopathy, lumbosacral region Shaniqua Diaz MD 06/23/2019 G62.9 Polyneuropathy, unspecified NORMA Villavicencio 06/23/2019 M47.892 Other spondylosis, cervical region Shaniqua Diaz MD 06/23/2019 G62.9 Polyneuropathy, unspecified Yuliya Holley, AYE 06/23/2019 M86.171 Other acute osteomyelitis, right NORMA Villavicencio ankle and foot 06/23/2019 I80.9 Phlebitis and thrombophlebitis of NORMA Villavicencio unspecified site 06/23/2019 M25.519 Pain in unspecified shoulder NORMA Villavicencio 06/23/2019 I10 Essential (primary) hypertension NORMA Villavicencio 06/23/2019 I48.91 Unspecified atrial fibrillation NORMA Villavicencio 06/22/2019 G62.9 Polyneuropathy, unspecified Shaniqua Diaz MD 06/22/2019 M86.671 Other chronic osteomyelitis, right Kevin Lizama M.D. ankle and foot 06/22/2019 M54.17 Radiculopathy, lumbosacral region Shaniqua Diaz MD 06/22/2019 M86.171 Other acute osteomyelitis, right NORMA Villavicencio ankle and foot 06/22/2019 M20.41 Other hammer toe(s) (acquired), Kevin Lizama M.D. right foot 06/22/2019 G90.09 Other idiopathic peripheral NORMA Villavicencio autonomic neuropathy 06/22/2019 G62.9 Polyneuropathy, unspecified Kevin Lizama M.D. 06/22/2019 M25.519 Pain in unspecified shoulder NORMA Villavicencio 06/22/2019 I10 Essential (primary) hypertension NORMA Villavicencio 06/22/2019 I48.91 Unspecified atrial fibrillation NORMA Villavicencio 06/21/2019 R20.0 Anesthesia of skin Barron Hutchinson MD 06/21/2019 M86.171 Other acute osteomyelitis, right Doris Obando, N.P. ankle and foot 06/21/2019 G90.09 Other idiopathic peripheral Doris Obando, N.P. autonomic neuropathy 06/21/2019 I48.91 Unspecified atrial fibrillation Doris Obando, N.P. 06/21/2019 I10 Essential (primary) hypertension Doris [...] Limon MD skin Plan of Treatment Future Appointment(s):12/04/2019 2:00 pm - Yuliya Holley NP at [facility]47/06/2020 3:40 pm - Reyna Limon MD at [facility] - Ccmob10/28/2019 - Yuliya Holley, NPL97.509 Non-pressure chronic ulcer oth prt unsp foot w unsp severityFollow up:1 month Functional Status Description No Information Available Mental Status Description No Information Available Referrals Refer to Reason for Referral Status Appt Date Wound Clinic 54 yo with PMH significant for right 3 rd toe Sent osteomyelitis idiopathic peripheral neuropathy with chronic wound to the right 2nd toe [address] [place] [address] [phone] Catarino Ordonez MD 54 yo with osteomyelitis of the right 3 rd toe, Sent ABIs non compressible, chronic wound right 2nd toe. Eval for possible need for angio vs CTA [address] 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
--- OUTSIDE RECORDS SUMMARY | 2019-11-22 10:52 | XMS REPORT | Continuity of Care Document ---
:1965 External Reference #:[id number] Author Name Kevin Lizama M.D. (transmitted by agent of provider Sarah Eid ) Address [address] [place] [address] Care Team Providers Name Role Phone Sohan Gomze MD - Cardiovascular Care Team Information Retention Manager Disease Mercy Carcamo NP - Diabetes Care Team Information Retention Manager [phone] Educator Reyna Limon M.D. - Family Medicine Care Team Information Retention Manager Problems Active Problems Provider Date Paroxysmal supraventricular Robert Drummond M.D.,FACP Onset: 03/22/2008 tachycardia Mitral valve disorder Robert Drummond M.D.,FACP Onset: 06/04/2011 Essential hypertension Robert Drummond M.D.,FACP Onset: 09/22/2015 Chronic atrial fibrillation Robert Drummond M.D.,FACP Onset: 01/11/2016 Left atrial enlargement Robert Drummond M.D.,FACP Onset: 01/11/2016 Impaired fasting glycaemia Robert Drummond M.D.,FACP Onset: 03/08/2017 Social History Type Date Description Comments Sex Unknown Tobacco Use Start: Unknown Never Smoked Cigarettes ETOH Use 03/12/2018 Occasionally consumes alcohol Recreational Drug Use Denies Drug Use Tobacco Use Start: Unknown Patient has never smoked Smoking Status Reviewed: 10/12/19 Patient has never smoked Exercise Type/Frequency Exercises regularly Allergies, Adverse Reactions, Alerts Description No Known Drug Allergies Medications Active Medications SIG Qnty Indications Ordering Provider Date Tramadol HCL four times a day 60tabs Ada Mary, 02/05/2017 50mg as needed for Tablets pain Diltiazem HCL ER take one [...] by mouth every day Unknown 1000Unit Capsules Shingrix pt had both doses per Sisi Coon MD 50mcg Suspension Rec her report History Medications Cephalexin take one 21caps Yuliya [...] CPT Code Status Date Vaccine Lot # [id number] Given 08/17/2019 Influenza Virus Vaccine, Quadrivalent, Split, Im Use 6-35mo 70210 Given 03/19/2018 Zoster (Shingles) Vaccine (HZV), Recombinant, Subunit, Adjuvanted 64394 Given 12/20/2017 Zoster (Shingles) Vaccine (HZV), Recombinant, Subunit, Adjuvanted 36885 Given 06/08/2017 Influenza Virus Vaccine, Quadrivalent, Split, Preservative Free 57470 Given 08/21/2016 Influ Virus Vaccine, Quadrivalent, Split Virus, [place] [address] Given 08/09/2016 Pneumonia Vaccine 34222 Given 06/22/2016 Tdap - Tetanus/Diptheria/Acellular Pertussis Q2035 Given 06/24/2015 Afluria Vaccine 47163 Given 08/13/2013 Flu Vaccine Split Virus Preservative Free For [id number] Indiv 3Yr Older [id number] Given 05/07/2012 Fluzone Vaccine 40123 Given 06/19/2011 Influenza Virus 3Yrs & Over 00105 Given 06/18/2011 Influenza Virus 3Yrs & Over [id number] 47781 Given 06/18/2011 Influenza Virus 3Yrs & Over [id number] 98674 Given 11/08/2010 Influenza Virus 3Yrs & Over [id number] 38150 Given 04/06/2007 Tdap - Tetanus/Diptheria/Acellular Pertussis Vital Signs Date Vital Result Comment 10/12/2019 2:04pm Height 63.5 inches 5'3.50" Weight 159.00 lb Heart Rate 72 /min BP Systolic Sitting 120 mmHg BP Diastolic Sitting 76 mmHg Respiratory Rate 14 /min Body Temperature 99.0 F BMI (Body Mass Index) 27.7 kg/m2 09/17/2019 2:22pm Height 63.5 inches 5'3.50" Weight 157.25 lb Heart Rate 72 /min BP Systolic Sitting 120 mmHg BP Diastolic Sitting 76 mmHg Respiratory Rate 14 /min Body Temperature 99.3 F BMI (Body Mass Index) 27.4 kg/m2 Results Test Acquired Date Facility Test Result H/L Range Note Wound 09/02/2019 [facility] Wound/Misc SEE RESULT 1 Culture/Sensi [address] [place] [address] Stain [phone] Laboratory test 09/02/2019 [facility] C Reactive < 1.00 Normal <8.[address] Protein mg/L [place], [place] [id number] [phone] CBC Auto Diff 09/02/2019 [facility] White Blood 9.1 Normal 3.5 -10.[address] Count 10^3/[place] [address] [phone] Red Blood Count 4.97 10^6/uL High 3.70-4.87 [...] Blood Cells % 0.0 CBC Auto 08/12/2019 [facility] White Blood 8.4 10^3/uL Normal 3.5-10.[address] Count [place], [place] [address] [phone] Red Blood Count 4.73 10^6/uL Normal 3.70-4.87 [...] Blood Cells % 0.0 Laboratory test 08/12/2019 [facility] C Reactive 3.60 mg/L Normal <8.[address] [place] [address] [phone] Basic Metabolic 08/12/2019 [facility] Sodium 140 Normal 135- [address] mmol/[place] [address] [phone] Potassium 3.5 mmol/L Normal 3.5-5.0 Chloride 100 mmol/L Low 101-111 Co2 Carbon Dioxide 32 mmol/L Normal 22-32 Anion Gap 8 mmol/L Normal 2-11 Glucose 121 mg/dL High 70-100 Blood Urea Nitrogen 14 mg/dL Normal 6-24 Creatinine 0.76 mg/dL Normal 0.51-0.95 BUN/Creatinine Ratio 18.4 Normal 8-20 Calcium 10.0 mg/dL Normal 8.6-10.3 Egfr Non- 78.7 >60 Egfr 95.3 >60 2 CBC Auto 07/29/2019 [facility] White Blood 8.1 10^3/uL Normal 3.5-10.[address] [place] [address] [phone] Red Blood Count 4.31 10^6/uL Normal 3.70-4.87 [...] Blood Cells % 0.1 Comp Metabolic 07/29/2019 [facility] Sodium 141 mmol/L Normal 135-[address] [place] [address] [phone] Potassium 3.4 mmol/L Low 3.5-5.0 Chloride 103 [...] Egfr 105.1 >60 3 Laboratory test 07/29/2019 [facility] C Reactive 2.51 mg/L Normal <8.[address] [place] [address] [phone] Laboratory test 07/22/2019 [facility] C Reactive 1.58 mg/L Normal <8.[address] [place] [address] [phone] CBC Auto Diff 07/22/2019 [facility] White Blood 8.7 Normal 3.5 -10.[address] Count 10^3/[place] [address] [phone] Red Blood Count 4.58 10^6/uL Normal 3.70-4.87 [...] Blood Cells % 0.0 Comp Metabolic 07/22/2019 [facility] Sodium 139 mmol/L Normal 135-[address] [place] [address] [phone] Potassium 3.2 mmol/L Low 3.5-5.0 Chloride 102 [...] Egfr 130.6 >60 4 Laboratory test 07/15/2019 [facility] C Reactive 1.71 mg/L Normal <8.[address] [place] [address] [phone] CBC Auto Diff 07/15/2019 [facility] White Blood 8.1 Normal 3.5 -10.[address] Count 10^3/[place] [address] [phone] Red Blood Count 4.46 10^6/uL Normal 3.70-4.87 [...] Blood Cells % 0.1 Comp Metabolic 07/15/2019 [facility] Sodium 139 mmol/L Normal 135-[address] [place] [address] [phone] Potassium 3.3 mmol/L Low 3.5-5.0 Chloride 101 [...] Egfr 112.5 >60 5 Laboratory test 07/08/2019 [facility] C Reactive < 1.00 Normal <8.[address] Protein mg/[place] [address] [phone] Comp Metabolic 07/08/2019 [facility] Sodium 139 Normal 135- [address] mmol/[place] [address] [phone] Potassium 3.2 mmol/L Low 3.5-5.0 Chloride 101 [...] Egfr 110.6 >60 6 CBC Auto 07/08/2019 [facility] White Blood 8.9 10^3/uL Normal 3.5-10.[address] [place] [address] [phone] Red Blood Count 4.57 10^6/uL Normal 3.70-4.87 [...] Blood Cells % 0.0 CBC Auto 07/01/2019 [facility] White Blood 9.7 10^3/uL Normal 3.5-10.[address] [place] [address] [phone] Red Blood Count 4.56 10^6/uL Normal 3.70-4.87 [...] Blood Cells % 0.0 Comp Metabolic 07/01/2019 [facility] Sodium 139 mmol/L Normal 135-[address] [place] [address] [phone] Potassium 3.4 mmol/L Low 3.5-5.0 Chloride 100 [...] Egfr 116.6 >60 7 Laboratory test 07/01/2019 [facility] C Reactive 2.11 mg/L Normal <8.[address] [place] [address] [phone] CBC Auto Diff 06/20/2019 [facility] White Blood 9.3 Normal 3.5 -10.[address] Count 10^3/[place] [address] [phone] Red Blood Count 4.84 10^6/uL Normal 3.70-4.87 [...] Blood Cells % 0.0 Comp Metabolic 06/20/2019 [facility] Sodium 140 mmol/L Normal 135-[address] [place] [address] [phone] Chloride 102 mmol/L Normal 101-111 Co2 Carbon [...] 15 U/L Normal 13-39 Laboratory test 06/20/2019 [facility] C Reactive 7.87 mg/L Normal <8.[address] [place] [address] [phone] Lead 05/27/2019 [facility] Lead,Venous, < 1.0 0.0-4.[address] B g/[place] [address] [phone] Venous/Capillary Venous Submitting Laboratory 10 Laboratory test 05/11/2019 [facility] Cytology SEE RESULT [address] [place] [address] [phone] Liver Function 04/30/2019 [facility] Total Protein 6.5 g/dL Normal 6.4-[address] [place] [address] [phone] Albumin 4.1 g/dL Normal 3.2-5.2 Globulin 2.4 g/dL Normal 2-4 Albumin/Globulin Ratio 1.7 Normal 1-3 Total Bilirubin 0.40 mg/dL Normal 0.2-1.0 Direct Bilirubin 0.10 mg/dL Normal 0.03-0.18 Indirect Bilirubin 0.3 mg/dL Normal 0.3-1.0 Alkaline Phosphatase 92 U/L Normal 34-104 Alt 33 U/L Normal 7-52 Ast 28 U/L Normal 13-39 Laboratory 04/30/2019 [facility] TSH (Thyroid 0.99 Normal 0.34 -5.60 test finding [address] Stim Horm) mcIU/[place] [address] [phone] Vitamin B12 448 pg/mL Normal 180-914 12 Hemoglobin A1c (Glyco HGB) 5.3 % Normal 4.0-5.6 13 CBC Auto 04/30/2019 [facility] White Blood 9.0 10^3/uL Normal 3.5-10.[address] [place] [address] [phone] Red Blood Count 4.69 10^6/uL Normal 3.70-4.87 [...] Red Blood Cells % 0.1 Laboratory 04/30/2019 [facility] Erythrocyte Sed 14 mm/Hr Normal 0-29 test finding [address] [place] [address] [phone] Lead 04/30/2019 [facility] Lead,Venous, B 1.2 0.0-4.[address] g/[place] [address] [phone] Venous/Capillary Venous Submitting Laboratory Phone [phone] Protein 04/30/2019 [facility] Total 6.2 Abnormal 6.3 - Electrophoresis [address] Protein(Pep) g/dL 7.9 [place] [address] [phone] Albumin 3.3 g/dL Abnormal 3.4-4.7 Alpha-1 Globulin 0.2 g/dL 0.1-0.3 Alpha-2 Globulin 0.8 g/dL 0.6-1.0 Beta Globulin 1.0 g/dL 0.7-1.2 Gamma Globulin 0.9 g/dL 0.6-1.6 Albumin/Globulin Ratio 1.12 Impression See Comment 16 1 SEE RESULT BELOW Name: VICKY CARROLL : [address]: Yuliya Calvo Acct: [id number] Unit: [id number] AGE: 54 Location: [facility] Re09/02/19 SEX: F Status: REG REF SPEC: [id number] MARYAM: 09/02/19-[address] [facility] [address]: Yuliya Rodrigezjustinekhang Holley,CHRISTIAN COUNSELOR REQ: [id number] RECD: 09/02/19 STATUS: COMP _ SOURCE: TOE SPDESC: ORDERED: Culture Stain COMMENTS: [id number] Specimen Description Right 2nd toe Procedure Result [...] CONTINUED ON NEXT PAGE DEPARTMENT OF PATHOLOGY, [address] [place] [address] Esteban Miles M.D. Director [facility] # [id number] Patient: VICKY CARROLL [id number] (Continued) Specimen: [id number] Collected: 09/02/19 Received: 09/02/19 (Continued) Procedure Result Reported Site Wound/Misc Culture Final (continued) 09/04/191052 1. ENTEROCOCCUS FAECALIS (continued) MGloriaIGloriaCGloria RX --------- ------ * Ampicillin/Sulbactam-Deduced S * These antibiotics are not available in the [facility] Formulary Contact the Microbiology Department for any additional antibiotic reporting. * ML - Main Lab . END OF REPORT DEPARTMENT OF PATHOLOGY, [address] [place] [address] Esteban Miles M.D. Director [facility] # [id number] 2 Because ethnic data is not always [...] developed and its performance characteristics determined by [facility] in a manner consistent with CLIA requirements. This test has not been cleared or approved by the U.S. Food and Drug Administration. 10 Test Performed by: [facility] [address] [place] [address] 11 SEE RESULT BELOW Name: GLENVICKY S : [address]: Reyna Limon MD Acct: [id number] Unit: [id number] AGE: 53 Location: [facility] Re05/11/19 SEX: F Status: REG REF SPEC: [id number] MARYAM: 05/11/[address]: Reyna Limon MD REQ: [id number] RECD: 05/11/19 STATUS: SOUT _ ORDERED: TP IMAGE ANALYS, HPV/Thin Prep COMMENTS: [id number] Negative for Intraepithelial lesion or Malignancy Date Time Test Result Flag (u) Normal Range 05/11/19 170 HPV RNA Negative Negative The high-risk HPV [...] was evaluated with the assistance of the Mobile Automation Test Imaging System. Due to cytologic findings at the manager protein microscope, comprehensive manual rescreening by a Meat Butcher may be required. The Pap Smear is [...] years. END OF REPORT DEPARTMENT OF PATHOLOGY, [address] [place] [address] Esteban Miles M.D. Director [facility] # [id number] 12 Normal Range 180 to 914 Indeterminate Range 145 to 180 Deficient Range <145 13 Therapeutic target for the treatment of diabetes mellitus patients is <7% HBA1C, and in selective patients <6.0%. Please refer to [place] [employer] diabetic care guidelines for further information. 14 ADDITIONAL INFORMATION Testing performed by Inductively Coupled Plasma-Mass Spectrometry (ICP-MS). This test was developed and its performance characteristics determined by [facility] in a manner consistent with CLIA requirements. This test has not been cleared or approved by the U.S. Food and Drug Administration. 15 Test Performed by: [address] [address] 16 RESULT: No apparent monoclonal protein on serum electrophoresis. Test Performed by: [address] [address] Procedures Date Code Description Status 06/24/2019 96863 Spinal Puncture, Lumbar Diagnostic Completed 05/27/2019 969402631 Diabetic Foot Exam Completed 04/16/2019 641445451 Diabetic Foot Exam Completed 04/07/2019 68288509 Mammogram Completed 12/29/2018 [id number] Colonoscopy Completed 04/03/2018 [id number] Mammogram Completed 11/25/2015 [id number] Mammogram Completed 11/24/2014 05684132 Mammogram Completed 12/24/2013 [id number] Colonoscopy Completed 09/22/2013 [id number] Mammogram Completed 01/08/2012 546099796 Bone Mineral Density Test Completed 06/21/2011 32678143 Mammogram Completed 09/07/2009 25901607 Mammogram Completed Medical Devices Description No Information Available Encounters Type Date Location Provider Dx Diagnosis Office Visit [facility]ka Zuniga L97.509 Non- [place] 2:[place]p [place] [facility] [place] oth prt unsp foot w unsp severity Office Visit 09/17/2019 [facility] Ananya Galvan L97.509 Non-pressure 2:40p Carol Lizama M.D. chronic ulcer oth Diseases prt unsp foot w unsp severity Office Visit 09/16/2019 [facility] Shaneka Zuniga L97.509 Non- pressure 2:30p [place] [facility] [place] ulcer oth prt unsp foot w unsp severity Office Visit 09/02/2019 [facility] Yuliya Pimentel L03.115 Cellulitis of 4:00p Infectious Holley, CHRISTIAN COUNSELOR right lower limb Diseases L97.519 Non-prs chronic ulcer oth prt right foot w unsp severity G62.9 Polyneuropathy, unspecified Office Visit 08/14/2019 [facility] Yuliya Pimentel M86.171 Other acute 2:40p For Infectious Holley, CHRISTIAN COUNSELOR osteomyelitis, Diseases right ankle and foot B95.61 Methicillin suscep staph infct causing dis classd elswhr L97.519 Non-prs chronic ulcer oth prt right foot w unsp severity G62.9 Polyneuropathy, unspecified Office Visit 07/31/2019 [facility] Margarito M86.171 Other acute 2:20p For Infectious Holley, CHRISTIAN COUNSELOR osteomyelitis, Diseases right ankle and foot B95.61 Methicillin suscep staph infct causing dis classd elswhr 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 Office Visit 06/24/2019 [facility] Shaniqua G62.9 Polyneuropathy, 7:00a Clinic MD Emily unspecified M54.17 Radiculopathy, lumbosacral region M47.892 Other spondylosis, cervical region R20.0 Anesthesia of skin Office Visit 06/24/2019 [facility] Kevin Galvan M86.171 Other acute 10:38a For Infectious Cindy Lizama osteomyelitis, Diseases right ankle and foot G62.9 Polyneuropathy, unspecified Office 06/24/2019 [facility] Mel M86.171 Other acute Visit 9:49a tavares Langford [...] Other spondylosis, cervical region Office Visit 06/23/2019 [facility] Yuliya Margarito M86.171 Other acute 10:37a For Infectious AYE Holley osteomyelitis, Diseases right ankle and foot G62.9 Polyneuropathy, unspecified Office 06/23/2019 [facility] G62.9 Polyneuropathy, Visit 9:48a tavares Langford PA unspecified Hospitalists M86.171 Other acute osteomyelitis, right ankle and foot I80.9 Phlebitis and thrombophlebitis of unspecified site M25.519 Pain in unspecified shoulder I10 Essential (primary) hypertension I48.91 Unspecified atrial fibrillation Office Visit 06/22/2019 [facility] Shan[facility]a G62.9 Polyneuropathy, 7:00a April Diaz MD unspecified M54.17 Radiculopathy, lumbosacral region Office Visit 06/22/2019 [facility] Kevin Galvan M86.671 Other chronic 10:35a For Infectious Cindy Lizama osteomyelitis, Diseases right ankle and foot M20.41 Other hammer toe(s) (acquired), right foot G62.9 Polyneuropathy, unspecified [facility] M[facility] Other acute Visit 9:48a tavares Langford PA osteomyelitis, Hospitalists right ankle and foot G90.09 Other idiopathic peripheral autonomic neuropathy M25.519 Pain in unspecified shoulder I10 Essential (primary) hypertension I48.91 Unspecified atrial fibrillation Office Visit 06/21/2019 [facility]ron R20.0 Anesthesia of 7:00a April Hutchinson MD skin Office Visit 06/21/2019 [facility] Doris Obando, M86.171 Other acute 9:47a tavares Langford [facility] osteomyelitis, right ankle and foot G90.09 Other idiopathic peripheral autonomic neuropathy I48.91 Unspecified atrial fibrillation I10 Essential (primary) hypertension M25.519 Pain in unspecified shoulder Office Visit 06/20/2019 [facility] M86.671 Other chronic 9:47a Assoc,tavares Braden M.D. 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 part of unspecified foot with unspecified severity 10/09/2019 L97.509 Non-pressure chronic ulcer of other Tricia Aden DNP , RN, part of unspecified foot with SUPERVISOR [employer]VERTISING [employer] unspecified severity 10/02/2019 L97.509 Non-pressure chronic ulcer of other Tricia Aden DNP , RN, part of unspecified foot with SUPERVISOR ADVERTISING [employer] unspecified severity 10/02/2019 M86.671 Other chronic osteomyelitis, right Tricia Aden DNP, RN, ankle and foot SUPER[employer] 10/02/2019 G47.33 Obstructive sleep apnea (adult) Tricia Aden DNP, RN, (pediatric) SUPER[employer]OR [employer]VERTISING [employer] 10/02/2019 S90.821A Blister (nonthermal), right foot, Tricia Aden DNP, RN, initial encounter SUPERVISOR ADVERTISING [employer] 09/23/2019 L97.509 Non-pressure chronic ulcer of other Shaneka Zuniga MD part of unspecified foot with unspecified severity 09/17/2019 L97.509 Non-pressure chronic ulcer of other Kevin Lizama M.D. part of unspecified foot with unspecified severity 09/16/2019 L97.509 Non-pressure chronic ulcer of other Shaneka Zuniga MD part of unspecified foot with unspecified severity 09/02/2019 L03.115 Cellulitis of right lower limb Yuliya Holley NP 09/02/2019 L97.519 Non-pressure chronic ulcer of other Yuliya Holley, CHRISTIAN COUNSELOR part of right foot with unspecified severity 09/02/2019 G62.9 Polyneuropathy, unspecified Yuliya Holley, CHRISTIAN COUNSELOR 08/14/2019 M86.171 Other acute osteomyelitis, right Yuliya Holley , CHRISTIAN COUNSELOR ankle and foot 08/14/2019 B95.61 Methicillin susceptible Yuliya Holley, CHRISTIAN COUNSELOR Staphylococcus aureus infection as the cause of diseases classified elsewhere 08/14/2019 L97.519 Non-pressure chronic ulcer of other Yuliya Holley, CHRISTIAN COUNSELOR part of right foot with unspecified severity 08/14/2019 G62.9 Polyneuropathy, unspecified Yuliya Holley, CHRISTIAN COUNSELOR 07/31/2019 M86.171 Other acute osteomyelitis, right Yuliya Holley , CHRISTIAN COUNSELOR ankle and foot 07/31/2019 B95.61 Methicillin susceptible Yuliya Holley, CHRISTIAN COUNSELOR Staphylococcus aureus infection as the cause of diseases classified elsewhere 07/31/2019 Z79.2 prison (current) use of Yuliya Holley, CHRISTIAN COUNSELOR antibiotics 07/31/2019 G62.9 Polyneuropathy, unspecified Yuliya Holley, CHRISTIAN COUNSELOR 07/17/2019 M86.171 Other acute osteomyelitis, right Yuliya Holley , CHRISTIAN COUNSELOR ankle and foot 07/17/2019 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 06/24/2019 G62.9 Polyneuropathy, unspecified Mel Martin, PA 06/24/2019 I80.9 Phlebitis and thrombophlebitis of Mel Martin [place] unspecified site 06/24/2019 I48.91 Unspecified atrial fibrillation Mel Martin, PA 06/24/2019 I34.0 Nonrheumatic mitral (valve) NORMA Villavicencio insufficiency 06/23/2019 G62.9 Polyneuropathy, unspecified Shaniqua Diaz MD 06/23/2019 M86.171 Other acute osteomyelitis, right Yuliya Holley , AYE ankle and foot 06/23/2019 M54.17 Radiculopathy, lumbosacral region Shaniqua Diaz MD 06/23/2019 G62.9 Polyneuropathy, unspecified Mel CoyneningNORMA alan 06/23/2019 M47.892 Other spondylosis, cervical region Shaniqua Diaz MD 06/23/2019 G62.9 Polyneuropathy, unspecified Yuliya Holley, CHRISTIAN COUNSELOR 06/23/2019 M86.171 Other acute osteomyelitis, right Mel Martin, [place] ankle and foot 06/23/2019 I80.9 Phlebitis and thrombophlebitis of Mel MartinNORMA unspecified site 06/23/2019 M25.519 Pain in unspecified shoulder NORMA Villavicencio 06/23/2019 I10 Essential (primary) hypertension NORMA Villavicencio 06/23/2019 I48.91 Unspecified atrial fibrillation Mel CoyneningNORMA alan 06/22/2019 G62.9 Polyneuropathy, unspecified Shaniqua Diaz MD [...] 2:30 pm - Yuliya Holley NP at [facility] For Infectious Ieuelihf90/08/2020 8:30 am - Catarino Ordonez M.D. at [facility]01/11/2020 3:40 pm - Reyna Limon MD at [facility] Internal Medicine - [facility]10/12/2019 - Kevin Lizama M.D.L97.509 Non- pressure chronic ulcer oth prt unsp foot w unsp severityFollow up:2 weeks Functional Status Description No Information Available Mental Status Description No Information Available Referrals Refer to Dr Reason for Referral Status Appt Date Wound Clinic 54 yo with PMH significant for right 3 rd toe Sent osteomyelitis idiopathic peripheral neuropathy with chronic wound to the right 2nd toe [address] [place] [address] [phone] Catarino Ordonez MD 54 yo with osteomyelitis of the right 3 rd toe, Sent ABIs non compressible, chronic wound right 2nd toe. 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
--- OUTSIDE RECORDS SUMMARY | 2019-11-22 10:52 | XMS REPORT | Continuity of Care Document ---
:1965 External Reference #:[id number] Author Name Kevin Lizama M.D. (transmitted by agent of provider Sarah Eid ) Address [address] [place] [address] Care Team Providers Name Role Phone Sohan Gomez MD - Cardiovascular Care Team Information Animal Husbandry Manager Disease Mercy Carcamo NP - Diabetes Care Team Information Animal Husbandry Manager [phone] Educator Problems Active Problems Provider Date Paroxysmal [...] Patient has never smoked Smoking Status Reviewed: 11/13/19 Patient has never smoked Exercise Type/Frequency Exercises regularly Allergies, Adverse Reactions, Alerts Description No Known Drug Allergies Medications Active Medications SIG Qnty Indications Ordering Provider Date Amoxicillin/Clavulan 1 tab by mouth 30tabs L03.115 Kevin Galvan 11/13/2019 ate Potassium two times per Cindy Lizama day 500-125mg Tablets Tramadol HCL four times a day 30tabs Ada Mary, 02/05/2017 50mg as needed for MD Tablets pain (needs appt) Diltiazem HCL ER take one capsule 90caps [...] take one tablet by 90tabs I10 Reyna Liomn MD 09/22/2015 25mg Tablets mouth once daily [...] CPT Code Status Date Vaccine Lot # [id number] Given 08/17/2019 Influenza Virus Vaccine, Quadrivalent, Split, Im Use 6-35mo 25088 Given 03/19/2018 Zoster (Shingles) Vaccine (HZV), Recombinant, Subunit, Adjuvanted 21343 Given 12/20/2017 Zoster (Shingles) Vaccine (HZV), Recombinant, Subunit, Adjuvanted 74921 Given 06/08/2017 Influenza Virus Vaccine, Quadrivalent, Split, Preservative Free 60487 Given 08/21/2016 Influ Virus Vaccine, Quadrivalent, Split Virus, [place] [address] Given 08/09/2016 Pneumonia Vaccine 12930 Given 06/22/2016 Tdap - Tetanus/Diptheria/Acellular Pertussis Q2035 Given 06/24/2015 Afluria Vaccine 50288 Given 08/13/2013 Flu Vaccine Split Virus Preservative Free For [id number] Indiv 3Yr Older Q2038 Given 05/07/2012 Fluzone Vaccine 24213 Given 06/19/2011 Influenza Virus 3Yrs & Over 94504 Given 06/18/2011 Influenza Virus 3Yrs & Over [id number] 69502 Given 06/18/2011 Influenza Virus 3Yrs & Over [id number] 09186 Given 11/08/2010 Influenza Virus 3Yrs & Over [id number] 21034 Given 04/06/2007 Tdap - Tetanus/Diptheria/Acellular Pertussis Vital Signs Date Vital Result Comment 11/13/2019 8:50am Height 63.5 inches 5'3.50" Weight 159.00 lb Heart Rate 72 /min BP Systolic Sitting 128 mmHg BP Diastolic Sitting 78 mmHg Respiratory Rate 14 /min Body Temperature 98.7 F BMI (Body Mass Index) 27.7 kg/m2 10/28/2019 2:30pm Height 63.5 inches 5'3.50" Weight 159.00 lb Heart Rate 72 /min BP Systolic Sitting 140 mmHg BP Diastolic Sitting 84 mmHg Respiratory Rate 14 /min Body Temperature 98.8 F BMI (Body Mass Index) 27.7 kg/m2 Results Test Acquired Date Facility Test Result H/L Range Note Wound 09/02/2019 [facility] Wound/Misc SEE RESULT 1 Culture/Sensi [address] [place] [address] Stain [phone] Laboratory test 09/02/2019 [facility] C Reactive < 1.00 Normal <8.[address] Protein mg/[place] [address] [phone] CBC Auto Diff 09/02/2019 [facility] White Blood 9.1 Normal 3.5 -10.[address] Count 10^3/[place] [address] [phone] Red Blood Count 4.97 10^6/uL High 3.70-4.87 [...] Blood Cells % 0.0 CBC Auto 08/12/2019 [facility] White Blood 8.4 10^3/uL Normal 3.5-10.[address] [place] [address] [phone] Red Blood Count 4.73 10^6/uL Normal 3.70-4.87 [...] Blood Cells % 0.0 Laboratory test 08/12/2019 [facility] C Reactive 3.60 mg/L Normal <8.[address] [place] [address] [phone] Basic Metabolic 08/12/2019 [facility] Sodium 140 Normal 135- [address] mmol/[place] [address] [phone] Potassium 3.5 mmol/L Normal 3.5-5.0 Chloride 100 mmol/L Low 101-111 Co2 Carbon Dioxide 32 mmol/L Normal 22-32 Anion Gap 8 mmol/L Normal 2-11 Glucose 121 mg/dL High 70-100 Blood Urea Nitrogen 14 mg/dL Normal 6-24 Creatinine 0.76 mg/dL Normal 0.51-0.95 BUN/Creatinine Ratio 18.4 Normal 8-20 Calcium 10.0 mg/dL Normal 8.6-10.3 Egfr Non- 78.7 >60 Egfr 95.3 >60 2 CBC Auto 07/29/2019 [facility] White Blood 8.1 10^3/uL Normal 3.5-10.[address] [place] [address] [phone] Red Blood Count 4.31 10^6/uL Normal 3.70-4.87 [...] Blood Cells % 0.1 Comp Metabolic 07/29/2019 [facility] Sodium 141 mmol/L Normal 135-[address] [place] [address] [phone] Potassium 3.4 mmol/L Low 3.5-5.0 Chloride 103 [...] Egfr 105.1 >60 3 Laboratory test 07/29/2019 [facility] C Reactive 2.51 mg/L Normal <8.[address] [place] [address] [phone] Laboratory test 07/22/2019 [facility] C Reactive 1.58 mg/L Normal <8.[address] [place] [address] [phone] Comp Metabolic 07/22/2019 [facility] Sodium 139 Normal 135- [address] mmol/[place] [address] [phone] Potassium 3.2 mmol/L Low 3.5-5.0 Chloride 102 [...] Non- 107.9 >60 Egfr 130.6 >60 4 CBC Auto 07/22/2019 [facility] White Blood 8.7 10^3/uL Normal 3.5-10.[address] [place] [address] [phone] Red Blood Count 4.58 10^6/uL Normal 3.70-4.87 [...] Red Blood Cells % 0.0 CBC Auto 07/15/2019 [facility] White Blood 8.1 10^3/uL Normal 3.5-10.[address] [place] [address] [phone] Red Blood Count 4.46 10^6/uL Normal 3.70-4.87 [...] Blood Cells % 0.1 Comp Metabolic 07/15/2019 [facility] Sodium 139 mmol/L Normal 135-[address] [place] [address] [phone] Potassium 3.3 mmol/L Low 3.5-5.0 Chloride 101 [...] >60 Egfr 112.5 >60 5 Laboratory test 07/15/2019 [facility] C Reactive 1.71 mg/L Normal <8.[address] [place] [address] [phone] CBC Auto Diff 07/08/2019 [facility] White Blood 8.9 Normal 3.5 -10.[address] Count 10^3/[place] [address] [phone] Red Blood Count 4.57 10^6/uL Normal 3.70-4.87 [...] Red Blood Cells % 0.0 Comp Metabolic 07/08/2019 [facility] Sodium 139 mmol/L Normal 135-[address] [place] [address] [phone] Potassium 3.2 mmol/L Low 3.5-5.0 Chloride 101 [...] Non- 91.4 >60 Egfr 110.6 >60 6 Laboratory test 07/08/2019 [facility] C Reactive < 1.00 Normal <8.[address] Protein mg/[place] [address] [phone] CBC Auto Diff 07/01/2019 [facility] White Blood 9.7 Normal 3.5 -10.[address] Count 10^3/[place] [address] [phone] Red Blood Count 4.56 10^6/uL Normal 3.70-4.87 [...] Blood Cells % 0.0 Comp Metabolic 07/01/2019 [facility] Sodium 139 mmol/L Normal 135-[address] [place] [address] [phone] Potassium 3.4 mmol/L Low 3.5-5.0 Chloride 100 [...] Egfr 116.6 >60 7 Laboratory test 07/01/2019 [facility] C Reactive 2.11 mg/L Normal <8.[address] [place] [address] [phone] CBC Auto Diff 06/20/2019 [facility] White Blood 9.3 Normal 3.5 -10.[address] Count 10^3/[place] [address] [phone] Red Blood Count 4.84 10^6/uL Normal 3.70-4.87 [...] Blood Cells % 0.0 Comp Metabolic 06/20/2019 [facility] Sodium 140 mmol/L Normal 135-[address] [place] [address] [phone] Chloride 102 mmol/L Normal 101-111 Co2 Carbon [...] 15 U/L Normal 13-39 Laboratory test 06/20/2019 [facility] C Reactive 7.87 mg/L Normal <8.[address] [place] [address] [phone] Lead 05/27/2019 [facility] Lead,Venous, < 1.0 0.0-4.[address] B g/[place] [address] [phone] Venous/Capillary Venous Submitting Laboratory 10 1 SEE RESULT BELOW Name: VICKY CARROLL : [address]: Yuliya Calvo Acct: [id number] Unit: [id number] AGE: 54 Location: [facility] Re09/02/19 SEX: F Status: REG REF SPEC: [id number] MARYAM: 09/02/19-[address]: Yuliya Holley NP REQ: [id number] RECD: 09/02/19 STATUS: COMP _ SOURCE: TOE SPDESC: ORDERED: Culture Stain COMMENTS: [id number] Specimen Description Right 2nd toe Procedure Result [...] CONTINUED ON NEXT PAGE DEPARTMENT OF PATHOLOGY, [address] [place] [address] Esteban Miles M.D. Director [facility] # [id number] Patient: VICKY CARROLL [id number] (Continued) Specimen: [id number] Collected: 09/02/19-161 Received: 09/02/19-1740 (Continued) Procedure Result Reported Site Wound/Misc Culture Final (continued) 09/04/191052 1. ENTEROCOCCUS FAECALIS (continued) M.I.C. RX --------- ------ * Ampicillin/Sulbactam-Deduced S * These antibiotics are not available in the [facility] Formulary Contact the Microbiology Department for any additional antibiotic reporting. * ML - Main Lab . END OF REPORT DEPARTMENT OF PATHOLOGY, [address] [place] [address] Esteban Miles M.D. Director [facility] # [id number] 2 Because ethnic data is not always [...] developed and its performance characteristics determined by [facility] in a manner consistent with CLIA requirements. This test has not been cleared or approved by the U.S. Food and Drug Administration. 10 Test Performed by: [facility] [address] [place] [address] Procedures Date Code Description Status 06/24/2019 95781 Spinal Puncture, Lumbar Diagnostic Completed 05/27/2019 [id number] Diabetic Foot Exam Completed 04/16/2019 [id number] Diabetic Foot Exam Completed 04/07/2019 [id number] Mammogram Completed 12/29/2018 [id number] Colonoscopy Completed 04/03/2018 [id number] Mammogram Completed 11/25/2015 [id number] Mammogram Completed 11/24/2014 [id number] Mammogram Completed 12/24/2013 [id number] Colonoscopy Completed 09/22/2013 [id number] Mammogram Completed 01/08/2012 [id number] Bone Mineral Density Test Completed 06/21/2011 [id number] Mammogram Completed 09/07/2009 [id number] Mammogram Completed Medical Devices Description No Information Available Encounters Type Date Location Provider Dx Diagnosis Office Visit 10/28/2019 [facility] Shaneka Zuniga, L97.509 Non- pressure 1:30p AT [facility] chronic ulcer oth prt unsp foot w unsp severity Office Visit 10/28/2019 [facility] [place] Yuliya Pimentel L97.519 Non- prs chronic 2:30p Infectious Holley, HEEL PAINTER ulcer oth prt Diseases right foot w unsp severity G62.9 Polyneuropathy, unspecified Office Visit 10/21/2019 2:30p Wound Care Shaneka Newman L97.509 Non-pressure Center AT [facility] MD Efrain chronic ulcer oth prt unsp foot w unsp severity Office Visit 10/14/2019 8:30a [facility] Catarino Vazquez L97.509 Non-pressure Medicine Of Rojas Ordonez M.D. chronic ulcer oth prt unsp foot w unsp severity I73.00 Raynaud's syndrome without gangrene Office Visit 10/14/2019 Wound Care Shaneka Newman L97.509 Non-pressure 12:45p Center AT [facility] MD Efrain chronic ulcer oth prt unsp foot w unsp severity Office Visit 10/12/2019 [facility] Kevin Galvan L97.509 Non-pressure 2:00p For Carol Lizama M.D. chronic ulcer oth Diseases prt unsp foot w unsp severity Office Visit 10/09/2019 Wound Care Tricia L97.509 Non-pressure 2:30p Center AT [facility] BRITTANY Aden RN, chronic ulcer ot MATERIALS DIRECTOR-BC prt unsp foot w unsp severity S90.821A Blister (nonthermal), right foot, initial encounter S90.921A Unspecified superficial injury of right foot, init encntr Office Visit 10/02/2019 2:30p Wound Care Tricia Aden L97.509 Non- pressure Center AT [facility] FAMILIA SOTO, MATERIALS DIRECTOR-BC chronic ulcer oth prt unsp foot w unsp severity M86.671 Other chronic osteomyelitis, right ankle and foot G47.33 Obstructive sleep apnea (adult) (pediatric) S90.821A Blister (nonthermal), right foot, initial encounter Office Visit 09/23/2019 Wound Care Shaneka Zuniga L97.509 Non-pressure 2:45p Center AT [facility] chronic ulcer oth prt unsp foot w unsp severity Office Visit 09/17/2019 [facility] Kevin Galvan L97.509 Non-pressure 2:40p For Carol Lizama M.D. chronic ulcer oth Diseases prt unsp foot w unsp severity Office Visit 09/16/2019 Wound Care Shaneka Zuniga, L97.509 Non-pressure 2:30p Center AT [facility] chronic ulcer oth prt unsp foot w unsp severity Office Visit 09/02/2019 [facility] Yuliya Pimentel L03.115 Cellulitis of 4:00p For Infectious Holley, HEEL PAINTER right lower limb Diseases L97.519 Non-prs chronic ulcer oth prt right foot w unsp severity G62.9 Polyneuropathy, unspecified Office Visit 08/14/2019 [facility] Yuliya Pimentel M86.171 Other acute 2:40p For Infectious Holley, HEEL PAINTER osteomyelitis, Diseases right ankle and foot B95.61 Methicillin suscep staph infct causing dis classd elswhr L97.519 Non-prs chronic ulcer oth prt right foot w unsp severity G62.9 Polyneuropathy, unspecified Office Visit 07/31/2019 [facility] Yuliya Pimentel M86.171 Other acute 2:20p For Infectious Holley, HEEL PAINTER osteomyelitis, Diseases right ankle and foot B95.61 Methicillin suscep staph infct causing dis classd elswhr Z79.2 long-term (current) use of antibiotics G62.9 Polyneuropathy, unspecified Office Visit 07/17/2019 [facility] Yuliya Pimentel M86.171 Other acute 2:40p For Infectious Holley, HEEL PAINTER osteomyelitis, Diseases right ankle and foot Z79.2 long-term (current) use of antibiotics Office Visit 06/24/2019 [facility] Shaniqua G62.9 Polyneuropathy, 7:00a April Diaz MD unspecified M54.17 Radiculopathy, lumbosacral region M47.892 Other spondylosis, cervical region R20.0 Anesthesia of skin Office Visit 06/24/2019 [facility] Kevin Galvan M86.171 Other acute 10:38a For Infectious Cindy Lizama osteomyelitis, Diseases right ankle and foot G62.9 Polyneuropathy, unspecified Office 06/24/2019 [facility] Mel M86.171 Other acute Visit 9:49a Assoc,NORMA Iqbal [...] Other spondylosis, cervical region Office Visit 06/23/2019 [facility] Yuliya Pimentel M86.171 Other acute 10:37a For Infectious AYE Holley osteomyelitis, Diseases right ankle and foot G62.9 Polyneuropathy, unspecified Office 06/23/2019 [facility] G62.9 Polyneuropathy, Visit 9:48a tavares Langford PA unspecified Hospitalists M86.171 Other acute osteomyelitis, right ankle and foot I80.9 Phlebitis and thrombophlebitis of unspecified site M25.519 Pain in unspecified shoulder I10 Essential (primary) hypertension I48.91 Unspecified atrial fibrillation Office Visit 06/22/2019 [facility] Shan[facility]a G62.9 Polyneuropathy, 7:00a April Diaz MD unspecified M54.17 Radiculopathy, lumbosacral region Office Visit 06/22/2019 [facility] Kevin Galvan M86.671 Other chronic 10:35a For Infectious Cindy Lizama osteomyelitis, Diseases right ankle and foot M20.41 Other hammer toe(s) (acquired), right foot G62.9 Polyneuropathy, unspecified Office 06/22/2019 [facility] M86.171 Other acute Visit 9:48a tavares Langford PA osteomyelitis, Hospitalists right ankle and foot G90.09 Other idiopathic peripheral autonomic neuropathy M25.519 Pain in unspecified shoulder I10 Essential (primary) hypertension I48.91 Unspecified atrial fibrillation Office Visit 06/21/2019 [facility] Barron R20.0 Anesthesia of 7:00a April Hutchinson MD skin Office Visit 06/21/2019 [facility] Doris Obando M86.171 Other acute 9:47a tavares Langford Hospital[facility] N.P. osteomyelitis, right ankle and foot G90.09 Other idiopathic peripheral autonomic neuropathy I48.91 Unspecified atrial fibrillation I10 Essential (primary) hypertension M25.519 Pain in unspecified shoulder Office Visit 06/20/2019 [facility] Brianna M86.671 Other chronic 9:47a Assoc,tavares Braden M.D. osteomyelitis, Hospitalists right ankle and foot G90.09 Other idiopathic peripheral autonomic neuropathy I48.91 Unspecified atrial fibrillation M25.519 Pain in unspecified shoulder Assessments Date Code Description Provider 11/13/2019 L97.519 Non-pressure chronic ulcer of other Kevin Lizama M.D. part of right foot with unspecified severity 11/13/2019 G62.9 Polyneuropathy, unspecified Kevin Lizama M.D. 11/13/2019 L03.115 Cellulitis of right lower limb Kevin Lizama M.D. 10/28/2019 L97.519 Non-pressure chronic ulcer of other Yuliya Holley NP part of right foot with unspecified severity 10/28/2019 L97.509 Non-pressure chronic ulcer of other Shaneka Zuniga MD part of unspecified foot with unspecified severity 10/28/2019 G62.9 Polyneuropathy, unspecified Yuliya Holley NP 10/21/2019 L97.509 Non-pressure chronic ulcer of other [...] , RN, part of unspecified foot with MATERIALS DIRECTOR-BC unspecified severity 10/09/2019 S90.821A Blister (nonthermal), right foot, Tricia Aden DNP, RN, initial encounter MATERIALS DIRECTOR-BC 10/09/2019 S90.921A Unspecified superficial injury of Tricia Aden DNP, RN, right foot, initial encounter MATERIALS DIRECTOR-BC 10/02/2019 L97.509 Non-pressure chronic ulcer of other Tricia Aden DNP , RN, part of unspecified foot with MATERIALS DIRECTOR- unspecified severity 10/02/2019 M86.671 Other chronic osteomyelitis, right Tricia Aden DNP, RN, ankle and foot MATERIALS DIRECTOR-BC 10/02/2019 G47.33 Obstructive sleep apnea (adult) Tricia Aden DNP, RN, (pediatric) MATERIALS DIRECTOR-BC 10/02/2019 S90.821A Blister (nonthermal), right foot, Tricia Aden DNP, RN, initial encounter MATERIALS DIRECTOR-BC 09/23/2019 L97.509 Non-pressure chronic ulcer of other Shaneka Zuniga MD part of unspecified foot with unspecified severity 09/17/2019 L97.509 Non-pressure chronic ulcer of other Kevin Lizama M.D. part of unspecified foot with unspecified severity 09/16/2019 L97.509 Non-pressure chronic ulcer of other Shaneka Zuniga MD part of unspecified foot with unspecified severity 09/02/2019 L03.115 Cellulitis of right lower limb Yuliya Holley, AYE 09/02/2019 L97.519 Non-pressure chronic ulcer of other Yuliya Holley NP part of right foot with unspecified severity 09/02/2019 G62.9 Polyneuropathy, unspecified Yuliya Holley, HEEL PAINTER 08/14/2019 M86.171 Other acute osteomyelitis, right Yuliya Holley HEEL PAINTER ankle and foot 08/14/2019 B95.61 Methicillin susceptible Yuliya Holley NP Staphylococcus aureus infection as the cause of diseases classified elsewhere 08/14/2019 L97.519 Non-pressure chronic ulcer of other Yuliya Holley NP part of right foot with unspecified severity 08/14/2019 G62.9 Polyneuropathy, unspecified Yuliya Holley NP 07/31/2019 M86.171 Other acute osteomyelitis, right Yuliyarajat Holley , AYE ankle and foot 07/31/2019 B95.61 Methicillin susceptible Yuliya Holley NP Staphylococcus aureus infection as the cause of diseases classified elsewhere 07/31/2019 Z79.2 buttermaker continuous churn (current) use of Yuliyarajat Holley NP antibiotics 07/31/2019 G62.9 Polyneuropathy, unspecified Yuliya Holley HEEL PAINTER 07/17/2019 M86.171 Other acute osteomyelitis, right Yuliyarajat Holley HEEL PAINTER ankle and foot 07/17/2019 Z79.2 long-term (current) use of Yuliya Holley NP antibiotics [...] MD 06/23/2019 M86.171 Other acute osteomyelitis, right Yuliyarajat Holley NP ankle and foot 06/23/2019 M54.17 Radiculopathy, lumbosacral region Shaniqua Diaz MD 06/23/2019 G62.9 Polyneuropathy, unspecified NORMA Villavicencio 06/23/2019 M47.892 Other spondylosis, cervical region Shaniqua Diaz MD 06/23/2019 G62.9 Polyneuropathy, unspecified Yuliya Holley NP 06/23/2019 M86.171 Other acute osteomyelitis, right NORMA [...] foot 06/21/2019 G90.09 Other idiopathic peripheral Doris Obando N.P. autonomic neuropathy 06/21/2019 I48.91 Unspecified atrial fibrillation Doris Obando N.P. 06/21/2019 I10 Essential (primary) hypertension Doris Obando N.P. 06/21/2019 M25.519 Pain in unspecified shoulder Doris Obando N.P. 06/20/2019 M86.671 Other chronic osteomyelitis, right Brianna Braden M.D. ankle and foot 06/20/2019 G90.09 Other idiopathic peripheral Brianna Braden M.D. autonomic neuropathy 06/20/2019 I48.91 Unspecified atrial fibrillation Brianna Braden M.D. 06/20/2019 M25.519 Pain in unspecified shoulder Brianna Braden M.D. Plan of Treatment Future Appointment(s):12/04/2019 2:00 pm - Yuliya Holley NP at [facility] For Infectious Zmnwbiag83/06/2020 3:40 pm - Reyna Limon MD at [facility] Internal Medicine - Ccm11/13/2019 - Kevin Lizama M.D.L97.519 Non- prs chronic ulcer oth prt right foot w unsp severityComments:amputation vs more abx and wound care; they opt for the latter, she will start augmentin and will work on [employer] for dalvanceFollow up:2 cfyhsN64.9 Polyneuropathy, bziaeoleirbM67.115 Cellulitis of right lower limbNew Medication:Amoxicillin/ Clavulanate Potassium 500-125 mg - 1 tab by mouth two times per dayComments: labs today Functional Status Description No Information Available Mental Status Description No Information Available Referrals Refer to Reason for Referral Status Appt Date Wound Clinic 54 yo with PMH significant for right 3 rd toe Sent osteomyelitis idiopathic peripheral neuropathy with chronic wound to the right 2nd toe [address] [place] [address] [phone] Catarino Ordonez MD 54 yo with osteomyelitis of the right 3 rd toe, Sent ABIs non compressible, chronic wound right 2nd toe. Eval for possible need for angio vs CTA [address] [place] [address] [phone]
--- NOTE | 2019-11-22 11:55 | ED ---
Lower Extremity - HPI Summary HPI Summary: Pt. is a 54 y.o female who presents to the ER for evaluation for worsening infection to right 2nd toe of foot. Pt. has been seeing wound clinic for wound to right second toe for about 5-6 months. Pt. states she has been on Augmentin for about 10 days and started Invanz this past Saturday. Pt. states she saw Dr. Rees 5 days ago and wound was improving. Pt. states she noticed redness and swelling. Today she noticed brownish discharge from wound which is new. Pt. not increased fatigue but denies fever, chills, N/V. Is not a diabetic. Sxs are moderate in severity. No current modifying factors. Pt. medical hx of osteo to 3rd digit of L foot, HTN, neuropathy, afib. - History of Current Complaint Chief Complaint: EDExtremityLower Stated Complaint: TOE INFECTION PER PT Time Seen by Provider: 11/22/19 11:20 Hx Obtained From: Patient Pain Intensity: 3 - Allergies/Home Medications Allergies/Adverse Reactions: Allergies Allergy/AdvReac Type Severity Reaction Status Date / Time No Known Allergies Allergy Verified 11/22/19 10:45 PMH/Surg Hx/FS Hx/Imm Hx Endocrine/Hematology History: Reports: Hx Anticoagulant Therapy Denies: Hx Diabetes Cardiovascular History: Reports: Hx Hypertension Denies: Hx Pacemaker/ICD Respiratory History: Denies: Hx Asthma History: Denies: Hx Dialysis, Hx Renal Disease Musculoskeletal History: Reports: Hx Back Problems Sensory History: Denies: Hx Contacts or Glasses, Hx Hearing Aid Opthamlomology History: Denies: Hx Contacts or Glasses Psychiatric History: Denies: Hx Panic Disorder - Cancer History Hx Chemotherapy: No Hx Radiation Therapy: No - Surgical History Surgery Procedure, Year, and Place: CSECTION X2. APPENDIX Infectious Disease History: No Infectious Disease History: Denies: Traveled Outside the [place] in Last 30 Days - Family History Known Family History: Positive: Cardiac Disease, Hypertension, Other - cancer- stomach, luncg, copd, emphysema, osteoporosis Negative: Diabetes - Social History Alcohol Use: Occasionally Hx Substance Use: No Substance Use Type: Reports: None Hx Tobacco Use: No Smoking Status (MU): Never Smoked Tobacco Review of Systems - ROS Summary Review of Systems Summary: Digoxin TAB* [Lanoxin TAB*] 0.25 mg PO DAILY 05/09/13 [History Confirmed ] Diltiazem CD CAP* [Cardizem CD CAP*] 180 mg PO DAILY 05/09/13 [History Confirmed 11/18/19] Apixaban* [Eliquis*] 5 mg PO BID 12/19/18 [History Confirmed 11/18/19] Chlorthalidone 25 mg PO DAILY 06/09/19 [History Confirmed 11/18/19] Magnesium Oxide [Magnesium] 250 mg PO DAILY 06/09/19 [History Confirmed 11/18/19 ] Potassium Chlor TAB* [Klor Con ER TAB 10 MEQ*] 10 meq PO BID 06/09/19 [History Confirmed 11/18/19] Vitamin D TAB* 1 tab PO DAILY 06/09/19 [History Confirmed 11/18/19] traMADol TAB* [Ultram*] 50 mg PO Q6HR PRN 06/09/19 [History Confirmed 11/18/19] Cannabidiol (Cbd) Extract [Epidiolex] 100 mg PO DAILY 11/18/19 [History Confirmed 11/18/19] Mv-Min/Iron/Folic/Calcium/Vitk [Women's Multivitamin Tablet] 1 tab PO DAILY 09/25 [History Confirmed 11/18/19] Constitutional: Negative Negative: Fever, Chills Gastrointestinal: Negative Positive: Other - wound, redness, swelling to second digit of right toe. All Other Systems Reviewed And Are Negative: Yes Physical Exam Triage Information Reviewed: Yes Vital Signs On Initial Exam: Initial Vitals Temp Pulse Resp BP Pulse Ox 98.7 F 112 19 153/95 97 11/22/19 10:42 11/22/19 10:42 11/22/19 10:42 11/22/19 10:42 11/22/19 10:42 Vital Signs Reviewed: Yes Appearance: Positive: Well-Appearing - Pt. sitting up in bed in NAD. present. Skin: Positive: Warm, Dry Head/Face: Positive: Normal Head/Face Inspection Eyes: Positive: Normal, EOMI, VIET Neck: Positive: Supple Musculoskeletal: Positive: Other - Roughly 2 cm wound noted to medial aspect of right second digit of foot. Toe is erythematous and edematous. No active draining. Neurological: Positive: Normal, CN Intact II-III Psychiatric: Positive: Affect/Mood Appropriate Procedures - Sedation Patient Received Moderate/Deep Sedation with Procedure: No Diagnostics - Vital Signs Vital Signs Temp Pulse Resp BP Pulse Ox 11/22/19 10:42 98.7 F 112 19 153/95 97 - Laboratory Result Diagrams: 11/22/19 12:05 11/22/19 12:05 Lab Statement: Any lab studies that have been ordered have been reviewed, and results considered in the medical decision making process. Lower Extremity Course/Dx - Course Course Of Treatment: Pt. with worseing wound to second digit of right toe. Afebrile and nontoxic appearing. IV placed. Labs show mild leukocytosis of 12 and minimally elevated CRP. Xray per radiology: IMPRESSION: Middle phalanx of the second digit is dislocated laterally with bony. resorption at the interphalangeal joint suggestive of osteomyelitis and dislocation. Given worsening infection and evidence of osteo on xray, hospitalist was consulted. Case discussed with Dr. Duong who will accept pt. for admission. Discussed wiht pt. and she is agreeable to admission. - Diagnoses Differential Diagnosis/HQI/PQRI: Positive: Cellulitis, Infection Provider Diagnoses: Osteomyelitis Discharge ED - Sign-Out/Discharge Documenting (check all that apply): Patient Departure - Discharge Plan Condition: Stable Disposition: ADMITTED TO [facility] - Billing Disposition and Condition Condition: STABLE Disposition: Admitted to [facility] - Attestation Statements Provider Attestation: I have seen the patient with the NADIA and agree with the plan and documentation below except as noted: Briefly 54-year-old female with osteomyelitis of the right second toe, coming in with worsening symptoms. Admit to medicine Mai Jimenez MD
[2019-11-22 12:15] LABS: ABS Basophils 0.1 10^3/ul (0-0.2); ABS Eosinophils 0.1 10^3/ul (0-0.6); ABS Lymphocytes 1.9 10^3/ul (1.0-4.8); ABS Monocytes 0.8 10^3/ul (0-0.8); ABS Neutrophils 9.2 10^3/ul (1.5-7.7); Hematocrit 46 % (35-47); Hemoglobin 16.4 g/dL (12.0-16.0); Lymphocyte % 15.6 %; Mean Corpuscular HGB Conc 35 g/dL (31-36); Mean Corpuscular Hemoglobin 32 pg (27-31); Mean Corpuscular Volume 91 fL (80-97); Mean Platelet Volume 8.2 fL (7.4-10.4); Nucleated Red Blood Cells % 0.1; Platelet Count 251 10^3/uL (150-450); Red Cell Distribution Width 13 % (10-15); White Blood Count 12.2 10^3/uL (3.5-10.8)
[2019-11-22] MEDS ORDERED: NS 0.9% 1000 ML** 1,000 ML IV ONE (12:23)
[2019-11-22 12:27] LABS: Calcium 9.9 mg/dL (8.6-10.3); Potassium 3.3 mmol/L (3.5-5.0); Total Bilirubin 0.4 mg/dL (0.2-1.0)
[2019-11-22 12:34] LABS: Albumin/Globulin Ratio 1.3 (1-3); BUN/Creatinine Ratio 18.9 (8-20); C Reactive Protein 10.86 mg/L (<8.01); EGFR African American 98.2 (>60); EGFR Non-African American 81.2 (>60); Globulin 3.1 g/dL (2-4); Total Protein 7.1 g/dL (6.4-8.9)
[2019-11-22] MEDS ORDERED: Acetaminophen TAB* 325 MG PO PRN (14:05)
[2019-11-22] MEDS ORDERED: Albuterol 2.5 MG/3 ML NEB.SOL* (0.083%) INH PRN (14:05)
[2019-11-22] MEDS ORDERED: Al Hydrox/Mg Hydrox/Simet LIQ* 30 ML UDC PO PRN (14:05)
[2019-11-22] MEDS ORDERED: traMADol TAB* 50 MG PO PRN (14:44)
[2019-11-22] MEDS ORDERED: Vancomycin(*) 1,000 MG in NS 0.9% 250 ML* 250 ML IV ONE (14:47)
[2019-11-22] MEDS: cefTRIAXone(*) 1 GM in NS 0.9% 50 ML* 50 ML IVPB SCH (16:42)
--- NOTE | 2019-11-22 17:53 | HP ---
CC: Dr. Limon; Dr. Rees * HISTORY AND PHYSICAL: DATE OF ADMISSION: 11/22/19 TIME OF ADMISSION: 2:30 p.m. PRIMARY CARE PROVIDER: Dr. Limon. INFECTIOUS DISEASE DOCTOR: Dr. Rees. CHIEF COMPLAINT: Right second toe swelling, pain, and drainage. HISTORY OF PRESENT ILLNESS: This is a 54-year-old female with history of polyneuropathy and right toe osteomyelitis for the past few months, who has been treated as an outpatient and presents to the emergency department today with worsening swelling, pain, and brown drainage from the toe that began this morning. She saw Dr. Rees approximately 10 days ago and was started on Augmentin and also recently started Dalvance weekly infusions and felt she was getting better until she woke up this morning and noticed that it was more red, more swollen and she had a sudden sharp pain and there was brown pus that had soaked through the bandage. She and her note that over the past few days she has been more lethargic than usual and has been sleeping lot of the day. Nothing unusual happened yesterday. She had the day off and rested all day. She has been adherent with her medications as well as wound care. She dresses it daily with Iodosorb on a nonadherent dressing and then an Charlotte dressing. She has not had any fevers, but again has generally been feeling unwell for about 2 days. Regarding the second toe, this initially began in June with a blister that she had popped and she had been on IV antibiotics for approximately 2 months at that time and then was off them for the past 2 months and following closely with Dr. Zuniga and Dr. Rees. It was thought to be healing; however, then 2 weeks ago she saw Dr. Zuniga at the wound center who was able to probe to bone and sent her to Dr. Rees, Dr. Rees at that point started Augmentin and she has been taking it since that time. She also started Dalvance this week. PAST MEDICAL HISTORY: 1. Polyneuropathy. The etiology is unclear. She was recommended to follow up with Neurology after her last admission; however, she did not do so. 2. MSSA osteo of the right third toe, which has since healed. 3. Atrial fibrillation. 4. Mild mitral regurgitation. 5. Sciatica. HOME MEDICATIONS: The medication reconciliation is still pending at this point , but based on her report she takes: 1. Eliquis 5 mg b.i.d. 2. CBD extract 100 mg daily. 3. Chlorthalidone 25 mg daily. 4. Digoxin 0.25 mg daily. 5. Diltiazem 180 mg daily. 6. Magnesium oxide 250 mg daily. 7. Multivitamin 1 tab daily. 8. KCl 10 mEq b.i.d. 9. Tramadol 50 mg q.6 p.r.n. pain. 10. Vitamin D. ALLERGIES: No known drug allergies. FAMILY HISTORY: Her mom had cancer and her dad had coronary artery disease and CVAs. SOCIAL HISTORY: She works at the [employer] at [employer] for 8 hours on her feet every day. She has never smoked and she rarely uses alcohol. REVIEW OF SYSTEMS: As per the HPI. Remainder of the review of systems is negative. PHYSICAL EXAMINATION GENERAL: Alert, well-appearing woman, in no distress, resting in the bed with her at the bedside. VITAL SIGNS: Temperature 98.7; heart rate 85, her initial heart rate was 112; respiratory rate 19; pulse ox 98% on room air; blood pressure 118/67. HEENT: Pupils equal, round, and reactive to light. Her left eye deviates medially. Oral mucosa is moist. NECK: No JVP. No adenopathy. LUNGS: Clear bilaterally. CHEST: She is in a regular rate and rhythm. ABDOMEN: Soft, nontender, nondistended. No guarding or rebound. No CVA tenderness. EXTREMITIES: Her left DP pulse is 2+. Her right pulse is not palpable. She has a large callus on the right great toe and then on the second toe there is approximately a 2 cm oblong superficial ulcer that is surrounded by erythema and the entire toe is edematous. There is scant purulent drainage from the ulcer and the third toe has a small area of thickened skin on the tip of the toe. Both feet are warm and sensation is grossly intact dorsally. DIAGNOSTIC STUDIES/LAB DATA: White blood cells 12.2, her white blood cell count 4 days ago was 8.8; hemoglobin 16.4; platelets 251. Sodium 141, potassium 3.3, chloride 105, bicarb 28, BUN 14, creatinine 0.74, glucose 108. C -reactive protein 10.86. Her C-reactive protein 4 days ago was 8 and in September was less than 1. Imaging: A foot x-ray shows middle phalanx of the second digit is dislocated laterally with bony resorption at the interphalangeal joint suggestive of osteomyelitis and dislocation. ASSESSMENT AND PLAN: This is a 54-year-old woman with history of a chronic nonhealing right second toe ulcer and osteomyelitis, who presents to the emergency department with worsening swelling, drainage, pain and is found to have a leukocytosis and rising CRP. 1. Sepsis. She has a leukocytosis which is new and tachycardia, with a clear source of infection, which is cellulitis of the right second toe. She has received IV fluids in the emergency department. I will put her broad-spectrum antibiotics, get blood cultures, and consult Dr. Rees and Orthopedics. She has discussed amputation in the past and is willing to consider it, but at this point treating the sepsis and cellulitis is our priority and this can be discussed. We will continue wound care and I will defer further imaging until Infectious Disease and Orthopedics weighs in. 2. Atrial fibrillation. I am continuing her apixaban as there is not a clear surgical plan or indication at this point. I will discuss this with Orthopedics. 3. DVT prophylaxis: On therapeutic anticoagulation. 4. Disposition: Admit to short-stay with Orthopedics and ID consults. [id number]/[facility] [place] #: [id number] EVELINA
[2019-11-22] MEDS: Apixaban* 5 MG TAB PO SCH (21:11)
[2019-11-22] MEDS: Potassium Chlor TAB* 10 MEQ TAB.ER PO SCH (21:11)
[2019-11-23 05:41] LABS: ABS Basophils 0.1 10^3/ul (0-0.2); ABS Eosinophils 0.1 10^3/ul (0-0.6); ABS Lymphocytes 1.9 10^3/ul (1.0-4.8); ABS Monocytes 0.5 10^3/ul (0-0.8); ABS Neutrophils 5.9 10^3/ul (1.5-7.7); Eosinophil % 1.3 %; Hematocrit 46 % (35-47); Hemoglobin 16.1 g/dL (12.0-16.0); Lymphocyte % 22.7 %; Mean Corpuscular HGB Conc 35 g/dL (31-36); Mean Corpuscular Hemoglobin 32 pg (27-31); Mean Corpuscular Volume 92 fL (80-97); Mean Platelet Volume 8.4 fL (7.4-10.4); Nucleated Red Blood Cells % 0.1; Platelet Count 215 10^3/uL (150-450); Red Blood Count 4.99 10^6 /uL (3.70-4.87); Red Cell Distribution Width 13 % (10-15); White Blood Count 8.5 10^3/uL (3.5-10.8)
[2019-11-23 05:52] LABS: Potassium 3.7 mmol/L (3.5-5.0)
[2019-11-23 05:58] LABS: BUN/Creatinine Ratio 19.2 (8-20); EGFR African American 92.4 (>60); EGFR Non-African American 76.4 (>60)
[2019-11-23] MEDS: Chlorthalidone TAB* 50 MG PO SCH ×2 (08:07→08:48)
[2019-11-23] MEDS: Digoxin TAB* 0.25 MG PO SCH ×2 (08:07→08:46)
[2019-11-23] MEDS: Diltiazem CD CAP* 180 MG PO SCH ×2 (08:07→08:46)
[2019-11-23] MEDS: EXTRACT PO SCH (08:07)
[2019-11-23] MEDS: CANNABIDIOL PO SCH (08:07)
[2019-11-23] MEDS: Apixaban* 5 MG TAB PO SCH ×3 (08:07→21:08)
[2019-11-23] MEDS: Multivitamins/Minerals TAB PO SCH ×2 (08:08→08:46)
[2019-11-23] MEDS: Potassium Chlor TAB* 10 MEQ TAB.ER PO SCH ×3 (08:08→21:08)
[2019-11-23] MEDS: MAGNESIUM OXIDE 250 MG PO SCH (08:08)
[2019-11-23] MEDS ORDERED: Famotidine IV* 10 MG/ML 2 ML (20 mg) IV ONE (08:16)
[2019-11-23] MEDS ORDERED: Buffered Lidocaine 1% SYRIN* 1 ML/SYRINGE INTRADERM ONE ×2 (08:19→14:10)
[2019-11-23] MEDS ORDERED: Ondansetron ODT TAB* 4 MG PO ONE (08:19)
[2019-11-23] MEDS ORDERED: Dexamethasone TAB* 4 MG PO ONE (08:19)
[2019-11-23] MEDS ORDERED: PROCHLORPERAZINE INJ 5 MG/ML 2 ML VIAL IV PRN (08:20)
[2019-11-23] MEDS ORDERED: HYDROmorphone INJ1* 1 MG/ML SYRINGE IV PRN (08:20)
[2019-11-23] MEDS ORDERED: Naloxone* 0.4 MG/ML 1 ML VIAL IV PRN (08:20)
[2019-11-23] MEDS ORDERED: fentaNYL* 50 MCG/ML 2 ML VIAL (100 MCG VIAL) IV PRN (08:20)
[2019-11-23] MEDS ORDERED: oxyCODONE TAB* 5 MG TAB PO PRN (08:20)
[2019-11-23] MEDS ORDERED: DiMENhydriNATE IV* 50 MG/ML VIAL IV PUSH PRN (08:20)
[2019-11-23] MEDS ORDERED: Lactated Ringers 1000 ML Bag* 1,000 ML IV SCH (09:00)
[2019-11-23] MEDS ORDERED: cefTRIAXone(*) 1 GM ADVAN/BAG ONE (14:10)
[2019-11-23] MEDS ORDERED: Ondansetron ODT TAB* 4 MG ONE (14:34)
[2019-11-23] MEDS ORDERED: Dexamethasone TAB* 4 MG ONE (14:35)
[2019-11-23] MEDS ORDERED: KETAMINE HCL* 50 MG/ML 10 ML VIAL ONE (14:37)
[2019-11-23] MEDS ORDERED: fentaNYL* 50 MCG/ML 2 ML VIAL (100 MCG VIAL) ONE (14:37)
[2019-11-23] MEDS ORDERED: Midazolam* 1 MG/ML 5 ML VIAL (5 MG) ONE (14:37)
[2019-11-23] MEDS ORDERED: Bupivacaine 0.5%* 50 ML MDV VIAL ONE (15:16)
[2019-11-23] MEDS ORDERED: Lidocaine 2% PF * 5 ML VIAL ONE (15:46)
[2019-11-23] MEDS ORDERED: Propofol* 10 MG/ML 20 ML BTL ONE (15:47)
--- NOTE | 2019-11-23 16:43 | CONS ---
CONSULTATION REPORT: DATE OF CONSULT: 11/23/19 PRIMARY CARE PROVIDER: Dr. Reyna Limon. PROVIDER REQUESTING CONSULTATION: Dr. Trinh Duong. CONSULTING SERVICE: Infectious Disease. PROVIDER: Jojo Holley NP ATTENDING PROVIDER: Dr. Kevin Rees.* (DICTATED BY JOJO HOLLEY NP) REASON FOR CONSULT: Right second toe swelling, cellulitis, and osteomyelitis . IMPRESSION: 1. Right second toe infection with suspected underlying chronic osteomyelitis. The patient received a dose of Dalvance last week and has been on Augmentin outpatient. She had worsening swelling and redness while on antibiotics. Denies fevers or chills. Fatigue is improving. MRI is pending today prior to surgery. In the past, cultures from the right foot with Enterococcus faecalis and Staphylococcus aureus back in May and June. Right foot x-ray with middle phalanx of the second digit dislocated laterally with bony reabsorption at the interphalangeal joint suggestive of osteomyelitis and dislocation. Wound cultures obtained in the emergency room yesterday with 2+ epithelial cells , 2+ neutrophils, 2+ gram-positive bacilli, 1+ gram-positive cocci; final culture pending. She has blood cultures with no growth on day 1. 2. Polyneuropathy. Unclear cause, this is slowly improving. 3. Atrial fibrillation. RECOMMENDATIONS/PLAN: Recommend continuing ceftriaxone. At this time, the Dalvance that she received last week should be in her system for approximately 1 -2 more weeks. We will continue to follow along. Final recommendations will be based of if the patient has a surgical procedure and the culture results and her clinical course. HISTORY OF PRESENT ILLNESS: Ms. Dinh is a 54-year-old female with past medical history significant for polyneuropathy with unclear cause, MSSA osteomyelitis of the right third toe, atrial fibrillation, mild mitral valve regurgitation, and sciatica, who originally presented to the hospital in June 2019 at which point she was diagnosed with right third toe osteomyelitis. She completed a 6-week course of Ancef followed by a 2-week course of cephalexin. The right third toe healed and was doing well, but she continued to have an ulcer to the medial aspect of her right second toe. The toe intermittently became more red and swollen. This typically improved when she was able to elevate her feet. She had normal ABIs with the exception of noncompressible vessels in the toes. Was seen by Dr. Ordonez who felt that no intervention was needed and per her report didn't have concerns with her circulation. She continued to have polyneuropathy, had never followed up with Neurology. She was doing well other than this continued wound. She had an MRI of the right lower extremity at the end of September showing "osteomyelitis involving the second toe from the proximal phalanx to the tip with the sequelae of previous osteomyelitis or current osteomyelitis of the third distal phalanx, osteomyelitis versus reactive bone marrow edema at the first distal phalanx, soft tissue inflammatory change at the forefoot without evidence of loculated abscess collection". She was referred to the wound center and has continued to follow closely with wound center and ID. She was seen by Dr. Rees in the office last week, with a persistent wound to the right second toe in addition to erythema and edema. At that time, she was started on oral Augmentin as well as received a dose of intravenous Dalvance on 11/18/19. She was scheduled to have her second dose of Dalvance on 11/25/19. She felt as though she was having improvement. She went to work on Saturday and felt tired. She went to bed. She woke up on Saturday and had gone grocery shopping with her . She came home and put the groceries away and then went to bed. Her was concerned about how she was acting as she seemed more fatigued than normal. She changed the dressing on her foot and she had noticed the toe was more red and that she had brown pus soaked through the drainage. She changed the dressing and her encouraged her to come to the emergency room. She denied any fevers, chills, cough, nausea, vomiting, diarrhea. While in the emergency room, she had an x-ray of the right foot showing middle phalanx of the second digit dislocated laterally with bony reabsorption at the intraphalangeal joint suggestive of osteomyelitis and dislocation. She had labs showing leukocytosis, CRP of 10.86. She received a dose of vancomycin and ceftriaxone, and was referred to the hospitalist service for admission. While in the hospital, she has remained afebrile, leukocytosis has resolved. She has an MRI pending today. She has been continued on ceftriaxone. She has no complaints today. Denies fever, chills, nausea, vomiting, or diarrhea. PAST MEDICAL HISTORY: 1. Polyneuropathy, unclear cause. 2. 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 3. Atrial fibrillation. 4. Mild mitral valve regurgitation. 5. Sciatica. PAST SURGICAL HISTORY: 1. Status post appendectomy. 2. Status post section x2. MEDICATIONS: Home medications include: 1. Eliquis 5 mg by mouth twice daily. 2. CBD extract 100 mg by mouth daily. 3. Chlorthalidone 25 mg by mouth daily. 4. Digoxin 0.25 mg by mouth daily. 5. Diltiazem 180 mg by mouth daily. 6. Magnesium oxide 250 mg by mouth daily. 7. Multivitamin 1 tablet by mouth daily. 8. Potassium chloride 10 mEq by mouth twice daily. 9. Tramadol 50 mg by mouth every 6 hours as needed for pain. 10. Vitamin D one tablet by mouth daily. Hospital medications: 1. Acetaminophen 650 mg by mouth every 4 hours as needed for pain. 2. Maalox 30 mL by mouth every 6 hours as needed for indigestion. 3. Albuterol 2.5 mg inhalation every 4 hours while awake as needed for shortness of breath or wheeze. 4. Eliquis 5 mg by mouth twice daily. 5. Ceftriaxone 1 g IV daily. 6. Chlorthalidone 25 mg by mouth daily. 7. Digoxin 0.25 mg by mouth daily. 8. Diltiazem 180 mg by mouth daily. 9. Lactated Ringer's 125 mL an hour intravenously. 10. Multivitamin 1 tablet by mouth daily. 11. CBD extract 100 mg by mouth daily. 12. Magnesium oxide 250 mg by mouth daily. 13. Potassium chloride 10 mEq by mouth twice daily. 14. Tramadol 50 mg by mouth every 6 hours as needed for pain. ALLERGIES: No known drug allergies. FAMILY HISTORY: Mother with a history of cancer. Father with a history of coronary artery disease and CVAs. SOCIAL HISTORY: She denies tobacco or recreational drug use. She rarely drinks alcohol. REVIEW OF SYSTEMS: I performed a 10-point review of systems. All the pertinent positives and negatives are mentioned in the history of present illness. The remaining review of systems are negative. PHYSICAL EXAM: Vital Signs: Temperature 98, heart rate 77, respiratory rate 16 , O2 sat 100% on room air, blood pressure 114/69. General Appearance: Alert. Appears to be in no acute distress, sitting up in bed. Head: Normocephalic, atraumatic. ENT: Extraocular movements are intact. No subconjunctival hemorrhage. Moist mucous membranes. Neurological: Alert and oriented x4. Cranial nerves II through XII are grossly intact. She moves all extremities. Cardiovascular: Regular rate and rhythm. S1 and S2 present. No murmurs, rubs , or gallops heard. Respiratory: No accessory muscle use. The lungs are clear to auscultation bilaterally. Abdomen: Bowel sounds present. Abdomen is soft, nontender, nondistended. Extremities: No lower extremity edema. Left DP pulse 2+. Unable to palpate right DP pulse. She is noted to have a large callus to the medial aspect of the right great toe. Second toe, the medial aspect with oblong superficial ulcer. The entire second toe is edematous. Musculoskeletal: No clubbing or cyanosis noted. Psychological: Calm and cooperative. Skin: No rashes seen. DIAGNOSTIC STUDIES/LAB DATA: Sodium 142, potassium 3.7, chloride 106, CO2 of 29 , BUN 15, creatinine 0.78, glucose 102. White blood cell count 8.5, hemoglobin 16.1, hematocrit 46, platelet count 215. CRP on admission yesterday 10.86. Please see impression and recommendations outlined above, recommendations have been discussed with NORMA Martinez. Thank you for asking us to see Ms. Dinh in consultation. The case has been discussed with my attending, Dr. Kevin Rees, who agrees with the plan of care. Reviewed by RAY BERGMAN 11/26/19 1205 [id number]/[facility] #: [id number] EVELINA
[2019-11-23] MEDS ORDERED: cefTRIAXone(*) 1 GM in NS 0.9% 50 ML* 50 ML IVPB SCH (18:00)
[2019-11-23] MEDS: cefTRIAXone(*) 1 GM in NS 0.9% 50 ML* 50 ML IVPB SCH (18:01)
--- NOTE | 2019-11-23 19:39 | PN ---
Subjective Date of Service: 11/23/19 Interval History: Patient had RT 2nd toe amputation earlier today. Described long course of osteomyelitis. No new pains. Eating OK, no chest pain, palpitations. Family History: Unchanged from Admission Social History: Unchanged from Admission Past Medical History: Unchanged from Admission Objective Active Medications: Acetaminophen (Tylenol Tab*) 650 mg PO Q4H PRN PRN Reason: PAIN - MILD Al Hydrox/Mg Hydrox/Simethicone (Maalox Plus*) 30 ml PO Q6H PRN PRN Reason: INDIGESTION Albuterol (Ventolin 2.5 Mg/3 Ml Neb.Orly*) 2.5 mg INH RT.[id number] AWAKE PRN PRN Reason: sob/wheezing Apixaban (Eliquis*) 5 mg PO BID [facility] Last Admin: 11/23/19 08:46 Dose: 5 mg Chlorthalidone (Hygroton Tab*) 25 mg PO DAILY [facility] Last Admin: 11/23/19 08:48 Dose: 25 mg Digoxin (Lanoxin Tab*) 0.25 mg PO DAILY [facility] Last Admin: 11/23/19 08:46 Dose: 0.25 mg Diltiazem HCl (Cardizem Cd Cap*) 180 mg PO DAILY [facility] Last Admin: 11/23/19 08:46 Dose: 180 mg Lactated Ringer's (Lactated Ringers 1000 Ml Bag*) 1,000 mls @ 125 mls/hr IV PER RATE [facility] Ceftriaxone Sodium 1 gm/ (Sodium Chloride) 50 mls @ 100 mls/hr IVPB 1800 [facility] Last Admin: 11/23/19 17:58 Dose: 100 mls/hr Multivitamins/Minerals (Theragran/Minerals Tab*) 1 tab PO DAILY [facility] Last Admin: 11/23/19 08:46 Dose: 1 tab Nf:Cannabidiol (Cbd) Extract [Epidiolex] 100 Mg 100 mg PO DAILY [facility] Last Admin: 11/23/19 08:07 Dose: Not Given Nf:Magnesium Oxide [ (Magnesium] 250 Mg) 250 mg PO DAILY [facility] Last Admin: 11/23/19 08:08 Dose: Not Given Potassium Chloride (Klor Con Er Tab*) 10 meq PO BID [facility] Last Admin: 11/23/19 08:46 Dose: 10 meq Tramadol HCl (Ultram*) 50 mg PO Q6HR PRN PRN Reason: PAIN - MILD Vital Signs - 8 hr 11/23/19 11/23/19 11/23/19 15:04 15:51 15:52 Temperature 36.3 C 36 C Pulse Rate 64 72 72 Respiratory 16 16 Rate Blood Pressure 114/75 123/74 (mmHg) O2 Sat by Pulse 97 99 99 Oximetry 11/23/19 11/23/19 11/23/19 15:55 16:00 16:05 Temperature Pulse Rate 73 77 Respiratory 16 16 16 Rate Blood Pressure 131/82 131/81 (mmHg) O2 Sat by Pulse 96 96 Oximetry Oxygen Devices in Use Now: None Appearance: alert, no distress Ears/Nose/Mouth/Throat: Clear Oropharnyx Respiratory: Symmetrical Chest Expansion and Respiratory Effort, Clear to Auscultation Cardiovascular: NL Sounds; No Murmurs; No JVD, RRR Abdominal: NL Sounds; No Tenderness; No Distention Extremities: - - RT ankle/forefoot in bandage Lines/Tubes/Other Access: Clean, Dry and Intact Peripheral IV Result Diagrams: 11/23/19 04:56 11/23/19 04:56 Microbiology and Other Data: Microbiology 11/23/19 15:30 Gram Stain - Preliminary Toe 11/22/19 12:06 Aerobic Blood Culture - Preliminary Blood Venous No Growth Day 1 Anaerobic Blood Culture - Preliminary No Growth Day 1 11/22/19 12:06 Aerobic Blood Culture - Preliminary Blood Venous No Growth Day 1 Anaerobic Blood Culture - Preliminary No Growth Day 1 11/22/19 14:37 Skin and Soft Tissue MRSA/MSSA (PCR - Final Foot Right Mrsa Negative S.aureus Negative Gram Stain - Final Assess/Plan/Problems-Billing Assessment: 54 year old with peripheral neuropathy, osteomyelitis RT 2nd toe, s/p amputation - Patient Problems (1) Osteomyelitis Current Visit: Yes Status: Acute Priority: High Code(s): M86.9 - OSTEOMYELITIS, UNSPECIFIED SNOMED Code(s): 99415063 Comment: -Continue ceftriaxone IV -Will discuss with ID tomorrow -Likely home with antibiotics in 1-2 days. (2) Peripheral neuropathy Current Visit: No Status: Acute Priority: Medium Code(s): G62.9 - POLYNEUROPATHY, UNSPECIFIED SNOMED Code(s): 292133244 Comment: - Neurology consults from 06/25 reviewed - Has had major investigations w/ heavy metal screening, MRI entire spine, EMG, LP - Pt to f/u with Dr. Hutchinson outpatient (3) DVT prophylaxis Current Visit: No Status: Acute Priority: Medium Code(s): Z29.9 - ENCOUNTER FOR PROPHYLACTIC MEASURES, UNSPECIFIED SNOMED Code(s): 829954384 Comment: - on apixaban (4) Atrial fibrillation Current Visit: Yes Status: Acute Priority: Medium Code(s): I48.91 - UNSPECIFIED ATRIAL FIBRILLATION SNOMED Code(s): 92714479 Comment: -Rate control, anticoagulation appropriate. Status and Disposition: Likely discharge in 1-2 days
--- NOTE | 2019-11-24 03:11 | OP ---
DATE OF OPERATION: 11/23/19 - ROOM #331 DATE OF : 61 SURGEON: Yoan Mckeon MD. COMBINATION MACHINE TOOL SETTER: Andrzej Tang PA-C. PRE-OP DIAGNOSIS: Right second toe osteomyelitis with diabetes. POST-OP DIAGNOSIS: Right second toe osteomyelitis with diabetes. OPERATIVE PROCEDURE: Right second toe amputation. DESCRIPTION OF PROCEDURE: The patient was taken to the operating room where ___ ___ Marcaine was applied as well as an ankle Esmarch. We circumferentially incised through the mid portion of the proximal phalanx over the right second toe disarticulating the capsule of the MTP joint. Toe sent to pathology with culture sent from the bed. We irrigated this thoroughly, dropped the tourniquet for hemostasis, and then closed dorsal to plantar with 3-0 Monocryl sutures and nylon for the skin. Compression dressing was applied. [id number]/[facility] #: [id number] MTDD
[2019-11-24] MEDS: Apixaban* 5 MG TAB PO SCH (08:37)
[2019-11-24] MEDS: Chlorthalidone TAB* 50 MG PO SCH (08:37)
[2019-11-24] MEDS: Multivitamins/Minerals TAB PO SCH (08:37)
[2019-11-24] MEDS: Potassium Chlor TAB* 10 MEQ TAB.ER PO SCH (08:38)
[2019-11-24] MEDS: Diltiazem CD CAP* 180 MG PO SCH (08:39)
[2019-11-24] MEDS: Digoxin TAB* 0.25 MG PO SCH (08:39)
[2019-11-24] MEDS: MAGNESIUM OXIDE 250 MG PO SCH (08:45)
[2019-11-24] MEDS: CANNABIDIOL PO SCH (08:45)
[2019-11-24] MEDS: EXTRACT PO SCH (08:45)
--- NOTE | 2019-11-24 09:30 | PN ---
Progress Note - Progress Note Date of Service: 11/24/19 SOAP: Subjective: CC: Right 2nd toe infection HPI: Ms. Dinh is a 54 yo female with PMH significant for polyneuropathy, osteomyelitis right 3rd toe, A fib, MV regurgitation, and sciatica; who presented to the hospital with a right 2nd toe infection. Now S/P right 2nd toe amputation. Denies fever, chills, nausea, vomiting, or diarrhea. Objective: Vital Signs 11/24/19 11/24/19 11/24/19 07:19 07:24 08:39 Temperature 97.8 F Pulse Rate 74 88 Respiratory 17 18 Rate Blood Pressure 122/72 (mmHg) O2 Sat by Pulse 98 Oximetry Physical Exam: General: NAD, laying in bed Neurological: Alert and Oriented HEENT: Moist MM Cardiovascular: Heart rate regular Respiratory: Lung sounds clear Abdominal: Bowel sounds present; ABD soft, non tender and non distended MSK: [place] Skin: No rash. Surgical dressing to right LE; clean, dry and intact; no extending erythema Microbiology 11/23/19 15:30 Gram Stain - Final Toe 11/22/19 12:06 Aerobic Blood Culture - Preliminary Blood Venous No Growth Day 1 Anaerobic Blood Culture - Preliminary No Growth Day 1 11/22/19 12:06 Aerobic Blood Culture - Preliminary Blood Venous No Growth Day 1 Anaerobic Blood Culture - Preliminary No Growth Day 1 11/22/19 14:37 Skin and Soft Tissue MRSA/MSSA (PCR - Final Foot Right Mrsa Negative S.aureus Negative Gram Stain - Final Assessment: 1. 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 Received a dose of Dalvance last week, this will last in her system for 2-3 weeks. Blood cultures with no growth to date. Wound culture with 2+ Gram positive bacilli and 1+ gram positive cocci, PCR negative for MSSA and MRSA. 2. Polyneuropathy. Bilateral LE, Pt states that this is improving. Unclear cause. Plan: Continue Ceftriaxone while in the hospital. Will plan to have second dose of Dalvance day after discharge (has an appointment 11/25 at 12 pm) and she will complete course of Augmentin that she has at home (6 days). Followup with ID outpatient, she has an appointment with me on 12/04/19 at 2pm. Discussed with Tj Hurst and Dr. Drummond. 25 minutes floor time: > 50% was spent with the patient discussing discharge ABX plan and when to call the office.
--- NOTE | 2019-11-24 10:58 | PN ---
Progress Note - Progress Note Date of Service: 11/24/19 SOAP: Subjective: []Pt seen and examined at bedside. She is feeling well without fever, chills, CP , SOB, dizziness, nausea. No R foot pain. Objective: []Gen: NAD, nontoxic appearing RLE: Dressing CDI, f/e at MTPs intact, insensate distally which is baseline, cap refill less than two seconds distally Calves supple and nontender without erythema, edema or palpable cords Assessment: []POD 1 sp R 2nd toe amputation Plan: []Heel WB in post of shoe Had Kathryn last week, scheduled to have another dose tomorrow. Abx plan tbd by ID Ready for DC from ortho standpoint with FU Dr Mckeon 1 week post op, keep dressing CDI until this time Okay to restart home eliquis from ortho standpoint, no additional surgery planned Microbiology 11/23/19 15:30 Skin and Soft Tissue MRSA/MSSA (PCR - Final Toe Mrsa Negative S.aureus Negative Gram Stain - Final 11/22/19 12:06 Aerobic Blood Culture - Preliminary Blood Venous No Growth Day 1 Anaerobic Blood Culture - Preliminary No Growth Day 1 11/22/19 12:06 Aerobic Blood Culture - Preliminary Blood Venous No Growth Day 1 Anaerobic Blood Culture - Preliminary No Growth Day 1 Vital Signs Temp 97.8 F 11/24/19 07:19 Pulse 88 11/24/19 08:39 Resp 18 11/24/19 07:24 BP 122/72 11/24/19 07:19 Pulse Ox 98 11/24/19 07:19 Intake & Output 11/23/19 11/24/19 11/24/19 18:59 06:59 18:59 Intake Total 800 700 Output Total 100 0 Balance 700 700 Weight 157 lb Intake: IV Fluids 800 lr 800 Oral 0 700 Output: Urine 100 0 Other: # Voids 3 2 Laboratory Last Values WBC 8.5 10^3/uL (3.5-10.8) 11/23/19 04:56 RBC 4.99 10^6 /uL (3.70-4.87) H 11/23/19 04:56 Hgb 16.1 g/dL (12.0-16.0) H 11/23/19 04:56 Hct 46 % (35-47) 11/23/19 04:56 MCV 92 fL (80-97) 11/23/19 04:56 MCH 32 pg (27-31) H 11/23/19 04:56 MCHC 35 g/dL (31-36) 11/23/19 04:56 RDW 13 % (10-15) 11/23/19 04:56 Plt Count 215 10^3/uL (150-450) 11/23/19 04:56 MPV 8.4 fL (7.4-10.4) 11/23/19 04:56 Neut % (Auto) 70.1 % 11/23/19 04:56 Lymph % (Auto) 22.7 % 11/23/19 04:56 Carbon % (Auto) 5.3 % 11/23/19 04:56 Eos % (Auto) 1.3 % 11/23/19 04:56 Baso % (Auto) 0.6 % 11/23/19 04:56 Absolute Neuts (auto) 5.9 10^3/ul (1.5-7.7) 11/23/19 04:56 Absolute Lymphs (auto) 1.9 10^3/ul (1.0-4.8) 11/23/19 04:56 Absolute Monos (auto) 0.5 10^3/ul (0-0.8) 11/23/19 04:56 Absolute Eos (auto) 0.1 10^3/ul (0-0.6) 11/23/19 04:56 Absolute Basos (auto) 0.1 10^3/ul (0-0.2) 11/23/19 04:56 Absolute Nucleated RBC 0.0 10^3/ul 11/23/19 04:56 Nucleated RBC % 0.1 11/23/19 04:56 Sodium 142 mmol/L (135-145) 11/23/19 04:56 Potassium 3.7 mmol/L (3.5-5.0) 11/23/19 04:56 Chloride 106 mmol/L (101-111) 11/23/19 04:56 Carbon Dioxide 29 mmol/L (22-32) 11/23/19 04:56 Anion Gap 7 mmol/L (2-11) 11/23/19 04:56 BUN 15 mg/dL (6-24) 11/23/19 04:56 Creatinine 0.78 mg/dL (0.51-0.95) 11/23/19 04:56 Est GFR ( Amer) 92.4 (>60) 11/23/19 04:56 Est GFR (Non-Af Amer) 76.4 (>60) 11/23/19 04:56 BUN/Creatinine Ratio 19.2 (8-20) 11/23/19 04:56 Glucose 102 mg/dL (70-100) H 11/23/19 04:56 Calcium 10.0 mg/dL (8.6-10.3) 11/23/19 04:56 Total Bilirubin 0.40 mg/dL (0.2-1.0) 11/22/19 12:05 AST 19 U/L (13-39) 11/22/19 12:05 ALT 18 U/L (7-52) 11/22/19 12:05 Alkaline Phosphatase 121 U/L (34-104) H 11/22/19 12:05 C-Reactive Protein 10.86 mg/L (<8.01) H 11/22/19 12:05 Total Protein 7.1 g/dL (6.4-8.9) 11/22/19 12:05 Albumin 4.0 g/dL (3.2-5.2) 11/22/19 12:05 Globulin 3.1 g/dL (2-4) 11/22/19 12:05 Albumin/Globulin Ratio 1.3 (1-3) 11/22/19 12:05
[2019-11-24 15:12] VITALS: BP 125/67
[2019-11-24] MEDS ORDERED: cefTRIAXone(*) 1 GM in NS 0.9% 50 ML* 50 ML IVPB SCH (15:30)
--- NOTE | 2019-11-25 13:21 | DS ---
CC: Dr. Limon; Dr. Hutchinson; Dr. Rees; Dr. Mckeon. DISCHARGE SUMMARY: DATE OF ADMISSION: 11/22/19 DATE OF DISCHARGE: 11/24/19 PRIMARY DIAGNOSIS: Osteomyelitis, right second toe due to Enterococcus faecalis. SECONDARY DIAGNOSES: 1. Peripheral neuropathy of unknown etiology. 2. History of methicillin-susceptible Staphylococcus aureus osteomyelitis, right third toe. 3. Atrial fibrillation. 4. Mild mitral regurgitation. 5. Sciatica. 6. Hypokalemia. MEDICATIONS ON DISCHARGE: 1. Apixaban 5 mg p.o. b.i.d. 2. CBD extract 100 mg p.o. daily. 3. Chlorthalidone 25 p.o. q.a.m. 4. Digoxin 0.25 mg p.o. q. day. 5. Diltiazem CD 180 mg p.o. q. day. 6. Magnesium oxide 250 mg p.o. q. day. 7. Multivitamin 1 tab p.o. q. day. 8. Potassium chloride 20 mEq p.o. b.i.d. 9. Tramadol 50 mg p.o. q.6 hours p.r.n. pain. 10. Vitamin D 1 tab daily. 11. Acetaminophen as needed. 12. Augmentin 875 mg p.o. b.i.d. for 6 days. 13. Dalvance 1 infusion 2 weeks prior to admission and 1 infusion planned 1 day after admission. PROCEDURES: Amputation, right second toe with Dr. Mckeon. COMPLICATIONS: None. CONSULTATIONS: Infectious Disease, Dr. Rees and Yuliya Pimentel as well as Orthopedic Surgery. HOSPITAL COURSE: Ms. Dinh is a 54-year-old woman with peripheral neuropathy of unknown cause who p resented with a worsening of skin and soft tissue infection in her right second toe on the background of several months of treatment for osteomyelitis. The cause of organism is not 100% clear because s he had methicillin- sensitive Staph aureus osteomyelitis previously in the third toe and a wound cult ure in the second toe back in August grew enterococcus. In any case, she failed outpatient treatme nt including treatment with Dalvance and was seen by Orthopedic Surgery. They recommended amputation of the second toe, which was performed on 11/23/18 without complications. Her consultation with Dr. Rees advised finishing of 6 days of Augmentin and 1 more dose of Dalvance, which would give her 5 to 6 weeks of total gram-positive coverage. PERTINENT LABORATORY TESTS DURING THE HOSPITAL STAY: Her white count on presentation was 12.2, which fell to 8.5 on the next day. She had a potassium of 3.3 on admission that rusty to 3.7 on discharge. C-reactive protein was 10.8. Skin and soft tissue infections are negative for MRSA and culture of the intraoperative wounds were negative to growth on discharge. MRI taken during the hospital stay s howed dislocation of the second proximal phalangeal joint of the right second toe and findings consis tent with osteomyelitis involving the proximal middle phalanges of the second toe. There is also juan david ctive changes in the distal phalanges of the first second and third toes, which may be osteomyelitis versus other reactive changes. DISPOSITION: Home. CONDITION: Stable. DIET: Low salt. ACTIVITY: As tolerated. Wound care instructions were given on patient's discharge packet. STATUS: Inpatient. FOLLOWUP: Followup with primary care within [address] Hutchinson within 1 to [address] Rees is arranged in late November. TIME SPENT: I spent more than 45 minutes with the patient in discharge and completing necessary rea rwork and exam. [id number]/[facility] #: [id number]
== END 2019-11-24 17:10 | disposition home or self-care (01) | DRG 710 ==
LOC: ED 10:40 → SSU 14:05 → OBSVTOIN 11-23 14:06
PROVIDERS: ADMIT Internal Medicine; ATTEND Internal Medicine
PROC: 0Y6R0Z0 Detachment at Right 2nd Toe, Complete, Open Approach (ICD-10-PCS; principal; 2019-11-23 16:45)
DX: A41.81 Sepsis due to Enterococcus (principal); M86.671 Other chronic osteomyelitis, right ankle and foot; G62.9 Polyneuropathy, unspecified; I48.91 Unspecified atrial fibrillation; M54.30 Sciatica, unspecified side; I34.0 Nonrheumatic mitral (valve) insufficiency; I10 Essential (primary) hypertension; L03.031 Cellulitis of right toe; E87.6 Hypokalemia; Z79.01 Long term (current) use of anticoagulants; Z79.899 Other long term (current) drug therapy
CPT/HCPCS: 36415; 80048; 80053; 85025; 86140; 87040; 87070; 87073; 87205; 87640; 87641; 88305; 88311; 99283; A9270-GY; G0378; J0696; J2250; J2704; J3010; J3370; J3490; J8540